=== PATIENT | male | born 1945 | race Caucasian/White ===

== ENCOUNTER 2016-07-23 23:26 | Inpatient (IN) | payer MEDICARE, BC ==
[~2016-07-23] VITALS: Ht 167.6 cm; Wt 76.6 kg
[~2016-07-23 23:26] MED LIST: AMLO10CA PO; ASPI1TAB69 PO; ASPI81TA11 PO; CIPR500T4 PO; COEN100T PO; COLE625 PO; EZET10 PO; LOTR10CA PO; MAGN500T4 PO; METR-1 PO; NEXI40CA PO; OMEGCAP21 PO; VITA400C28 PO; VITA400C59 CHEW; WELC625T2 PO; ZETI10TA5 PO
[2016-07-23 23:34] VITALS: BP 123/84; PULSE 114; RESP 20; TEMP 98.5
[2016-07-23] MEDS ORDERED: ASPIRIN 81 MG CHEW TAB CHEW ONE (23:45)
[2016-07-23] MEDS ORDERED: OMEGCAP PO (23:49)
[2016-07-23] MEDS ORDERED: MULTTAB67 PO (23:49)
[2016-07-23] MEDS ORDERED: COENPOW21 PO (23:49)
[2016-07-23] MEDS ORDERED: IBUP400T20 PO (23:51)
--- NOTE | 2016-07-23 23:53 | PD ---
HPI Chief Complaint: Chest Pain Time Seen by Provider: 23:37 Travel History International Travel<30 days: No Contact w/Intl Traveler<30days: No History of Present Illness HPI 70-year-old male complains of chest pain. Patient states that he had diarrhea 2 days ago which lasted 1 day. Patient was having generalized malaise yesterday. Patient states that he had low-grade fever yesterday of 99. Patient was sitting down and resting this evening when he started having subsequent chest pain. Patient states the pains aching pain substernally without radiation. Patient denies palpitation nausea vomiting diaphoresis. Patient denies any fever chills. Patient states that he has some mild dry cough today. Patient denies any abdominal pain. Patient denies any nausea vomiting diarrhea. Patient has history hypertension and dyslipidemia. Patient denies history of diabetes. Patient smokes cigar occasionally. Patient has family history of heart disease. Patient states that he has stress test done last year was normal. Patient take aspirin 81 mg daily. On a scale of 1-10 the pain is a 3. PFSH Past Medical History High Cholesterol: Yes Diminished Hearing: No Hepatitis: Yes (autoimmune ) Hypertension: Yes Past Surgical History Tonsillectomy: Yes Social History Alcohol Use: Yes (glass of wine nightly) Tobacco Use: No Substance Use: No Allergies-Medications (Allergen,Severity, Reaction): Coded Allergies: No Known Allergies (Unverified , 07/23/16) Reported Meds & Prescriptions Reported Meds & Active Scripts Active Reported Coenzyme Q10 1 Pow Pow 300 PO DAILY Multiple Vitamin 1 Tab 1 Tab PO DAILY [place]-3 Fish Oil/Vitamin (Fish Oil-Cholecalciferol) 1,000-1,000 Mg Cap 2 Cap PO DAILY Vitamin D (Cholecalciferol) 400 Unit Cap 400 Mg PO DAILY Nexium (Esomeprazole DR) 40 Mg Capdr 40 Mg PO DAILY Zetia (Ezetimibe) 10 Mg Tab 10 Mg PO DAILY Welchol (Colesevelam HCl) 625 Mg Tab 1,875 Mg PO BID Aspirin 81 Mg Tabdr 81 Mg PO DAILY Amlodipine-Benazepril 10-20 Mg Cap 1 Cap PO DAILY Review of Systems General / Constitutional: No: Fever Eyes: No: Visual changes HENT: No: Headaches Cardiovascular: Positive: Chest Pain or Discomfort Respiratory: No: Shortness of Breath Gastrointestinal: No: Abdominal Pain Genitourinary: No: Dysuria Musculoskeletal: No: Pain Skin: No Rash Neurologic: No: Weakness Psychiatric: No: Depression Endocrine: No: Polydipsia Hematologic/Lymphatic: No: Easy Bruising Physical Exam Narrative GENERAL: Well-nourished, well-developed patient. SKIN: Focused skin assessment warm/dry. HEAD: Normocephalic. EYES: No scleral icterus. No injection or drainage. NECK: Supple, trachea midline. No JVD or lymphadenopathy. CARDIOVASCULAR: Regular rate and rhythm without murmurs, gallops, or rubs. RESPIRATORY: Breath sounds equal bilaterally. No accessory muscle use. GASTROINTESTINAL: Abdomen soft, non-tender, nondistended. MUSCULOSKELETAL: No cyanosis, or edema. BACK: Nontender without obvious deformity. No CVA tenderness. Neurologic exam normal. Data Data Last Documented VS Vital Signs Date Time Temp Pulse Resp B/P Pulse Ox O2 Delivery O2 Flow Rate FiO2 07/23/16 23:34 98.5 114 20 123/84 Orders Electrocardiogram (07/23/16 23:44) Complete Blood Count With Diff (07/23/16 23:44) Comprehensive Metabolic Panel (07/23/16 23:44) Creatine Kinase (Cpk) (07/23/16 23:44) Troponin I (07/23/16 23:44) Prothrombin Time / Inr (Pt) (07/23/16 23:44) Act Partial Throm Time (Ptt) (07/23/16 23:44) Thyroid Stimulating Hormone (07/23/16 23:44) Chest, Single Ap (07/23/16 23:44) Iv Access Insert/Monitor (07/23/16 23:44) Ecg Monitoring (07/23/16 23:44) Oximetry (07/23/16 23:44) Aspirin Chew (Aspirin Chew) (07/23/16 23:45) MDM Medical Decision Making Medical Screen Exam Complete: Yes Emergency Medical Condition: Yes Interpretation(s) 23:52 PM. EKG shows sinus tachycardia rate 113. Nonspecific ST-T wave change. Differential Diagnosis Differential diagnosis including musculoskeletal, angina, [place], PE, pneumothorax. Narrative Course 70-year-old male with substernal chest pain. Victor Manuel Young MD Jul 23, 2016 23:53
[2016-07-23 23:59] LABS: AUTOMATED NEUTROPHIL # 6.7 TH/MM3 (1.8-7.7); BASOPHIL # 0.1 TH/MM3 (0-0.2); BASOPHIL % 0.6 % (0.0-2.0); EOSINOPHIL # 0.1 TH/MM3 (0-0.4); EOSINOPHIL % 1.1 % (0.0-4.0); HEMATOCRIT 46.3 % (39.0-51.0); HEMO FLAGS DIFF FINAL; LYMPH % 11.2 % (9.0-44.0); MEAN CELL VOLUME 86.4 FL (80.0-100.0); MEAN CORPUSCULAR HEMOGLOBIN 30.3 PG (27.0-34.0); MONO % 12.1 % (0.0-8.0); PLATELET COUNT 113 TH/MM3 (150-450); RED BLOOD COUNT 5.36 MIL/MM3 (4.50-5.90); RED CELL DISTRIBUTION WIDTH 12.5 % (11.6-17.2)
[2016-07-24] VITALS (29 sets, daily range): BP systolic 90–110; BP diastolic 65–77; PULSE 82–104; RESP 16–18; TEMP 97.3–98; O2SAT 91–96
[2016-07-24 00:06] LABS: CHLORIDE 100 MEQ/L (98-107); POTASSIUM 3.1 MEQ/L (3.5-5.1); SODIUM (NA) 139 MEQ/L (136-145)
[2016-07-24 00:10] LABS: ANION GAP 14 MEQ/L (5-15); BICARBONATE 24.6 MEQ/L (21.0-32.0)
[2016-07-24 00:11] LABS: APTT (PATIENT) 26.9 SEC (24.3-30.1); BLOOD UREA NITROGEN 22 MG/DL (7-18); PROTHROMBIN TIME - PATIENT 11.1 SEC (9.8-11.6)
[2016-07-24 00:14] LABS: ALT (GPT) 35 U/L (12-78); AST (GOT) 26 U/L (15-37); GLOMERULAR FILTRATION RATE 60 ML/MIN (>89)
[2016-07-24 00:15] LABS: TOTAL BILIRUBIN ADULT 0.8 MG/DL (0.2-1.0)
--- NOTE | 2016-07-24 00:16 | RADHPO ---
EXAM DATE/TIME: 07/24/2016 00:01 [facility] COMPARISON: No previous studies available for comparison. INDICATIONS : Chest pain. MEDICAL HISTORY : None. SURGICAL HISTORY : None. ENCOUNTER: Initial ACUITY: 1 day PAIN SCORE: 3/10 LOCATION: Bilateral chest FINDINGS: A single view of the chest demonstrates the lungs to be symmetrically aerated without evidence of mas s, infiltrate or effusion. The cardiomediastinal contours are unremarkable. Narrowing of the bilateral subacromial spaces noted, right worse on left. Chronic bilateral rotator c uff tears are suspected. CONCLUSION: No evidence of acute cardiopulmonary disease. Yehuda Herring MD on July 24, 2016 at 0:14 Board Certified Radiologist. This report was verified electronically.
[2016-07-24 00:17] LABS: ALKALINE PHOSPHATASE 68 U/L (45-117)
[2016-07-24] MEDS ORDERED: SODIUM CHLOR 0.9% 1000 ML INJ 1,000 ML IV ONE (00:30)
[2016-07-24 00:35] LABS: CREATINE KINASE 87 U/L (39-308)
[2016-07-24] MEDS ORDERED: HEPARIN SODIUM - IV 10,000 UNITS/10 ML VIAL IV ONE (00:45)
[2016-07-24] MEDS ORDERED: IOHEXOL 350 MG/ML 10 ML VIAL (for RAD DIAG) IV ONE (00:51)
--- NOTE | 2016-07-24 00:56 | PD ---
Physical Exam Time Seen by Provider: 00:[address] Young with this patient with me to check the results of the CT scan/ laboratory and likely admit. Data Data Last Documented VS Vital Signs Date Time Temp Pulse Resp B/P Pulse Ox O2 Delivery O2 Flow Rate FiO2 07/24/16 00:45 102 18 107/73 95 Room Air 07/23/16 23:34 98.5 Orders Electrocardiogram (07/23/16 23:44) Complete Blood Count With Diff (07/23/16 23:44) Comprehensive Metabolic Panel (07/23/16 23:44) Creatine Kinase (Cpk) (07/23/16 23:44) Troponin I (07/23/16 23:44) Prothrombin Time / Inr (Pt) (07/23/16 23:44) Act Partial Throm Time (Ptt) (07/23/16 23:44) Thyroid Stimulating Hormone (07/23/16 23:44) Chest, Single Ap (07/23/16 23:44) Iv Access Insert/Monitor (07/23/16 23:44) Ecg Monitoring (07/23/16 23:44) Oximetry (07/23/16 23:44) Aspirin Chew (Aspirin Chew) (07/23/16 23:45) D-Dimer (07/23/16 23:50) Ct Pulmonary Angiogram (07/23/16 23:50) Sodium Chlor 0.9% 1000 Ml Inj (Ns 1000 M (07/24/16 00:30) Heparin Infusion CHASE.Q1H (07/24/16 00:41) Heparin Inj (Heparin Inj) (07/24/16 00:45) Heparin-D5w Inj (Heparin-D5w Inj) (07/24/16 00:45) Act Partial Throm Time (Ptt) (07/24/16 00:41) Cbc No Diff, Includes Plts (07/24/16 00:41) Cbc No Diff, Includes Plts (07/27/16 06:00) Act Partial Throm Time (Ptt) (07/24/16 07:41) Occult Blood (Hemoccult) Stool (07/24/16 00:41) Iohexol 350 Inj (Omnipaque 350 Inj) (07/24/16 00:51) Potassium Chloride (Kcl) (07/24/16 01:00) Admit Order (Ed Use Only) (07/24/16 01:19) Labs Laboratory Tests Test 07/23/16 23:45 White Blood Count 9.0 TH/MM3 Red Blood Count 5.36 MIL/MM3 Hemoglobin 16.2 GM/DL Hematocrit 46.3 % Mean Corpuscular Volume 86.4 FL Mean Corpuscular Hemoglobin 30.3 PG Mean Corpuscular Hemoglobin 35.0 % Concent Red Cell Distribution Width 12.5 % Platelet Count 113 TH/MM3 Mean Platelet Volume 8.8 FL Neutrophils (%) (Auto) 75.0 % Lymphocytes (%) (Auto) 11.2 % Monocytes (%) (Auto) 12.1 % Eosinophils (%) (Auto) 1.1 % Basophils (%) (Auto) 0.6 % Neutrophils # (Auto) 6.7 TH/MM3 Lymphocytes # (Auto) 1.0 TH/MM3 Monocytes # (Auto) 1.1 TH/MM3 Eosinophils # (Auto) 0.1 TH/MM3 Basophils # (Auto) 0.1 TH/MM3 CBC Comment DIFF FINAL Differential Comment Prothrombin Time 11.1 SEC Prothromb Time International 1.0 RATIO Ratio Activated Partial 26.9 SEC Thromboplast Time D-Dimer Quantitative (PE/DVT) 0.62 MG/L FEU Sodium Level 139 MEQ/L Potassium Level 3.1 MEQ/L Chloride Level 100 MEQ/L Carbon Dioxide Level 24.6 MEQ/L Anion Gap 14 MEQ/L Blood Urea Nitrogen 22 MG/DL Creatinine 1.20 MG/DL Estimat Glomerular Filtration 60 ML/MIN Rate Random Glucose 135 MG/DL Calcium Level 8.9 MG/DL Total Bilirubin 0.8 MG/DL Aspartate Amino Transf 26 U/L (AST/SGOT) Alanine Aminotransferase 35 U/L (ALT/SGPT) Alkaline Phosphatase 68 U/L Total Creatine Kinase 87 U/L Troponin I 0.86 NG/ML Total Protein 7.9 GM/DL Albumin 3.9 GM/DL Thyroid Stimulating Hormone 1.740 uIU/ML 3rd Gen [facility] Medical Record Reviewed: Yes Supervised Visit with YANIQUE: Yes Interpretation(s) The EKG shows sinus tachycardia with a rate of [address] junctional depression which is nonspecific in no other acute change. The complete metabolic profile shows a BUN of 22, GFR 60, glucose 135 and potassium 3.1 but is otherwise normal. The CK is normal but the troponin I is 0.86. The APTT T, pro time and INR are normal. The chest x-ray shows no acute cardiopulmonary disease. The TSH is normal. The d-dimer is 0.62. The CT pulmonary angiogram shows no pulmonary embolus. No acute abnormality is noted. He does have coronary artery calcification and left ventricular hypertrophy and calcification of the mitral valve annulus. There is a small hiatal hernia and there are several tiny nonobstructing stones visualized in the upper kidneys. Differential Diagnosis Acute coronary syndrome, non-STEMI myocardial infarction, pulmonary embolus, electrolyte disorder, renal insufficiency, Narrative Course The patient appears to have a non-STEMI myocardial infarction. He is comfortable and there is no evidence for pulmonary embolus. EKG is essentially normal except for some slight ST depression on leads V2 and V3 and tachycardia of 113. I discussed the patient with Dr. Esteban Cheatham and the patient will be admitted to the [facility] service with consult to him. The patient will be transferred to [facility]. Physician Communication Physician Communication I discussed the patient with Dr. Esteban Cheatham and CONOR Jackson. Miss Jackson instructed me to admit the patient to Dr. Monroy. Diagnosis Primary Impression: Non-STEMI (non-ST elevated myocardial infarction) Admitting Information Admitting Physician Requests: Admit Ben Chan MD Jul 24, 2016 00:56
[2016-07-24] MEDS ORDERED: POTASSIUM CHLORIDE 20 MEQ CONTROLLED RELEASE TAB PO ONE (01:00)
--- NOTE | 2016-07-24 01:01 | RADHPO ---
EXAM DATE/TIME: 07/24/2016 00:29 [facility] COMPARISON: No previous studies available for comparison. INDICATIONS : Diffuse chest pain. IV CONTRAST: 80 cc Omnipaque 350 (iohexol) IV RADIATION DOSE: 14.83 CTDIvol (mGy) MEDICAL HISTORY : Hypertension. Gastroesophageal reflux disease. SURGICAL HISTORY : None. ENCOUNTER: Initial ACUITY: 1 day PAIN SCALE: 6/10 LOCATION: chest TECHNIQUE: Volumetric scanning of the chest was performed using a pulmonary embolism protocol MIP images were re constructed. Using automated exposure control and adjustment of the mA and/or kV according to patien t size, radiation dose was kept as low as reasonably achievable to obtain optimal diagnostic quality images. FINDINGS: There is no pulmonary embolus. Mild left ventricular hypertrophy. There is calcification of the mitral valve annulus. Right and left-sided coronary artery calcification noted. There is no lymphadenopathy. No infiltrate, effusion or pneumothorax. Small hiatal hernia noted. Several small stones are seen of the visualized upper kidneys without evidence of obstruction. There is a 14 mm cyst on the left. CONCLUSION: 1. No pulmonary embolus or other acute abnormality demonstrated. 2. Coronary artery calcification. Left ventricular hypertrophy and calcification of the mitral valve annulus noted. 3. Small hiatal hernia. 4. Several tiny nonobstructing stones of the visualized upper kidneys. Yehuda Herring MD on July 24, 2016 at 0:55 Board Certified Radiologist. This report was verified electronically.
[2016-07-24] MEDS: HEPARIN-D5W INJ 250 ML IV SCH (01:02)
[2016-07-24] MEDS ORDERED: SODIUM CHLORIDE 0.9% FLUSH 10 ML FLUSH IV FLUSH PRN (01:30)
[2016-07-24] MEDS ORDERED: ACETAMINOPHEN 325 MG TAB PO PRN (01:30)
[2016-07-24] MEDS ORDERED: ONDANSETRON HCL 4 MG/2 ML VIAL IVP PRN (01:30)
[2016-07-24] MEDS ORDERED: NALOXONE HCL 0.4 MG/ML AMP IV PRN (01:30)
[2016-07-24] MEDS ORDERED: MORPHINE SULFATE 4 MG/ML INJ IV PUSH PRN (01:30)
[2016-07-24] MEDS ORDERED: PILL SPLITTER OTHER PRN (01:45)
[2016-07-24] MEDS: SODIUM CHLOR 0.9% 1000 ML INJ 1,000 ML IV SCH ×2 (01:54→20:34)
[2016-07-24] MEDS: NITROGLYCERIN 2% OINT 1 GM PACKET TOPICAL SCH ×3 (06:00→17:54)
[2016-07-24] MEDS ORDERED: VENTAER INH (06:44)
[2016-07-24] MEDS ORDERED: RESP: ALBUTEROL 2.5 MG/IPRATROPIUM 0.5 MG NEB (PRN) NEB (06:45)
[2016-07-24 06:54] LABS: APTT (PATIENT) 48.8 SEC (24.3-30.1)
--- NOTE | 2016-07-24 08:48 | HHI.HP ---
[facility] Tico Silva MD Admission Diagnosis non-STEMI myocardial infarction Diagnoses: (1) Non-STEMI (non-ST elevated myocardial infarction) (2) Hypertension (3) Hyperlipidemia (4) IFG (impaired fasting glucose) (5) Hypokalemia Chief Complaint: Chest pain Travel History International Travel<30 Days: No Contact w/Intl Traveler <30 Da: No Traveled to Known Affected Are: No History of Present Illness 70 year-old male with a history of hyperlipidemia, hypertension presented to the ED for evaluation of worsening symptoms of chest discomfort since 6 PM yesterday rated 3/10 in intensity without any radiation, diaphoresis however associated with some shortness of breath. Initially, patient thought of similar complaint of bronchospasm for which he tried an inhaler without any improvement and decided to check himself to the ED. prior to this, patient had diarrhea episodes on night until Monday which resolved. He has no GI bleed. He had a previous stress test several years ago and the result was negative. Review of Systems Other 12 systems reviewed and are negative except for the one mentioned in history of present illness Past Family Social History Past Medical History Hyperlipidemia Hypertension GERD Past Surgical History Previous right knee surgery Reported Medications Coenzyme Q10 1 Pow Pow 300 PO DAILY Multiple Vitamin 1 Tab 1 Tab PO DAILY [place]-3 Fish Oil/Vitamin (Fish Oil-Cholecalciferol) 1,000-1,000 Mg Cap 2 Cap PO DAILY Vitamin D (Cholecalciferol) 400 Unit Cap 400 Mg PO DAILY Nexium (Esomeprazole DR) 40 Mg Capdr 40 Mg PO DAILY Zetia (Ezetimibe) 10 Mg Tab 10 Mg PO DAILY Welchol (Colesevelam HCl) 625 Mg Tab 1,875 Mg PO BID Aspirin 81 Mg Tabdr 81 Mg PO DAILY Amlodipine-Benazepril 10-20 Mg Cap 1 Cap PO DAILY Allergies: Coded Allergies: No Known Allergies (Unverified , 07/23/16) Family History Father from heart disease, he had multiples CABG Mother alive, heart disease, previous breast cancer 2 Social History Social alcohol, denies tobacco or illicit drug intake Physical Exam Vital Signs Vital Signs Date Time Temp Pulse Resp B/P Pulse Ox O2 Delivery O2 Flow Rate FiO2 07/24/16 08:00 97.8 93 18 93/68 95 07/24/16 08:00 93 07/24/16 07:02 95 21 07/24/16 07:02 87 16 93/69 94 Room Air 07/24/16 07:01 16 94 Room Air 07/24/16 06:15 97.9 88 18 100/74 95 Room Air 07/24/16 04:50 86 17 90/72 94 Room Air 07/24/16 03:50 88 18 96/74 96 Room Air 07/24/16 03:20 90 17 93/69 94 Room Air 07/24/16 02:50 88 18 94/71 95 Room Air 07/24/16 02:14 98 16 95/67 95 Room Air 07/24/16 02:00 96 21 07/24/16 01:50 Room Air 07/24/16 01:20 101 17 106/77 95 Room Air 07/24/16 00:45 102 18 107/73 95 Room Air 07/24/16 00:45 Room Air 07/23/16 23:34 98.5 114 20 123/84 Physical Exam GENERAL: This is a well-nourished, well-developed patient who looks younger than his stated age, in no apparent distress. SKIN: No rashes, ecchymoses or lesions. Cool and dry. HEAD: Atraumatic. Normocephalic. No temporal or scalp tenderness. EYES: Pupils equal round and reactive. Extraocular motions intact. No scleral icterus. No injection or drainage. ENT: Nose without bleeding, purulent drainage or septal hematoma. Throat without erythema, tonsillar hypertrophy or exudate. Uvula midline. Airway patent. NECK: Trachea midline. No JVD or lymphadenopathy. Supple, nontender, no meningeal signs. CARDIOVASCULAR: Regular rate and rhythm without murmurs, gallops, or rubs. RESPIRATORY: Clear to auscultation. Breath sounds equal bilaterally. No wheezes , rales, or rhonchi. GASTROINTESTINAL: Abdomen soft, non-tender, nondistended. No hepato-splenomegaly , or palpable masses. No guarding. MUSCULOSKELETAL: Extremities without clubbing, cyanosis, or edema. No joint tenderness, effusion, or edema noted. No calf tenderness. Negative Homans sign bilaterally. NEUROLOGICAL: Awake and alert. Cranial nerves II through XII intact. Motor and sensory grossly within normal limits. Five out of 5 muscle strength in all muscle groups. Normal speech. Laboratory Laboratory Tests Test 07/23/16 07/24/16 23:45 06:10 White Blood Count 9.0 Red Blood Count 5.36 Hemoglobin 16.2 Hematocrit 46.3 Mean Corpuscular Volume 86.4 Mean Corpuscular Hemoglobin 30.3 Mean Corpuscular Hemoglobin 35.0 Concent Red Cell Distribution Width 12.5 Platelet Count 113 Mean Platelet Volume 8.8 Neutrophils (%) (Auto) 75.0 Lymphocytes (%) (Auto) 11.2 Monocytes (%) (Auto) 12.1 Eosinophils (%) (Auto) 1.1 Basophils (%) (Auto) 0.6 Neutrophils # (Auto) 6.7 Lymphocytes # (Auto) 1.0 Monocytes # (Auto) 1.1 Eosinophils # (Auto) 0.1 Basophils # (Auto) 0.1 CBC Comment DIFF FINAL Differential Comment Prothrombin Time 11.1 Prothromb Time International 1.0 Ratio Activated Partial 26.9 48.8 Thromboplast Time D-Dimer Quantitative (PE/DVT) 0.62 Sodium Level 139 Potassium Level 3.1 Chloride Level 100 Carbon Dioxide Level 24.6 Anion Gap 14 Blood Urea Nitrogen 22 Creatinine 1.20 Estimat Glomerular Filtration 60 Rate Random Glucose 135 Calcium Level 8.9 Total Bilirubin 0.8 Aspartate Amino Transf 26 (AST/SGOT) Alanine Aminotransferase 35 (ALT/SGPT) Alkaline Phosphatase 68 Total Creatine Kinase 87 Troponin I 0.86 0.89 Total Protein 7.9 Albumin 3.9 Thyroid Stimulating Hormone 1.740 3rd Gen Result Diagram: 07/23/16234407/23/1623[address] Angiography 07/23/162349 Signed Impressions: Service Date/Time: Sunday, July 24, 2016 00:29 - CONCLUSION: 1. No pulmonary embolus or other acute abnormality demonstrated. 2. Coronary artery calcification. Left ventricular hypertrophy and calcification of the mitral valve annulus noted. 3. Small hiatal hernia. 4. Several tiny nonobstructing stones of the visualized upper kidneys. Yehuda Herring MD Chest X-Ray 07/23/162343 Signed Impressions: Service Date/Time: Sunday, July 24, 2016 00:01 - CONCLUSION: No evidence of acute cardiopulmonary disease. Yehuda Herring MD Assessment and Plan Problem List: (1) Non-STEMI (non-ST elevated myocardial infarction) ICD Code: I21.4 Status: Acute (2) Hypertension ICD Code: I10 Status: Acute (3) Hyperlipidemia ICD Code: E78.5 Status: Acute (4) IFG (impaired fasting glucose) ICD Code: R73.01 Status: Acute (5) Hypokalemia ICD Code: E87.6 Status: Acute Assessment and Plan 70-year-old man with Non-ST elevation NM CTA noted and reviewed by me with No pulmonary embolus or other acute abnormality demonstrated Chest x-ray noted and reviewed by me without any cardio pulmonary disease Initial Elevated Cardiac enzyme, continue ACS ruled out per protocol with serial cardiac enzyme and EKG Cardiology consultation pending for eval for possible left heart catheterization +/-PCI Check 2-D echo Treatment with heparin drip, beta pau , aspirin, statin, Nitropaste Hypertension Secondary to low BP, will hold beta pau Hyperlipidemia Resume statin and check lipid profile Impaired fasting glucose Check hemoglobin A1c and treat accordingly Hypokalemia Replace electrolyte and monitor DVT prophylaxis: Heparin Code Status Full code Discussed Condition With Patient Physician Certification 2 Midnight Certification Type: Admission for Inpatient Services Order for Inpatient Services The services are ordered in accordance with Medicare regulations or non- Medicare payer requirements, as applicable. In the case of services not specified as inpatient-only, they are appropriately provided as inpatient services in accordance with the 2-midnight benchmark. Estimated LOS (days): 2 days is the estimated time the patient will need to remain in the hospital, assuming treatment plan goals are met and no additional complications. Post-Hospital Plan: Not yet determined Rambo Turner MD Jul 24, 2016 08:48
[2016-07-24] MEDS ORDERED: LISINOPRIL 20 MG TAB PO SCH ×2 (09:00→20:00)
[2016-07-24] MEDS ORDERED: amLODIPine BESYLATE 5 MG TAB PO SCH ×2 (09:00→20:00)
[2016-07-24] MEDS ORDERED: NON-FORMULARY DRUG (Amlodipine-Benazepril 1 CAP) PO SCH (09:00)
[2016-07-24] MEDS ORDERED: METOPROLOL TARTRATE 25 MG TAB PO SCH (09:00)
[2016-07-24] MEDS: EZETIMIBE 10 MG TAB PO SCH (09:28)
[2016-07-24] MEDS: ASPIRIN 325 MG TAB PO SCH (09:29)
[2016-07-24] MEDS: PANTOPRAZOLE SOD 40 MG DELAYED RELEASE TAB PO SCH (09:29)
[2016-07-24] MEDS: SODIUM CHLORIDE 0.9% FLUSH 10 ML FLUSH IV FLUSH SCH ×2 (09:30→20:32)
--- NOTE | 2016-07-24 10:39 | MB ---
cc: EDITH ESTEBAN DATE OF CONSULTATION: 07/24/2016 1944 REASON FOR CONSULTATION Chest pain. HISTORY OF PRESENT ILLNESS 70-year-old male with past medical history significant for hyperlipidemia, hypertension, occasional smoking cigars, that presented to the emergency department with complaints of chest discomfort that started yesterday at 06:00 p.m., about 3 out of 10 in intensity without radiation, associated with mild shortness of breath. Initial EKG showed some EKG ST depressions and first and second set of cardiac troponins elevated in the range of 0.86-0.89. Thus, the patient has been consulted to cardiology for further management and evaluation. REVIEW OF SYSTEMS Review of systems negative except for what is mentioned in HPI. PAST MEDICAL HISTORY 1. Hyperlipidemia. 2. Hypertension. 3. Gastroesophageal reflux disease. PAST SURGICAL HISTORY Right knee surgery. MEDICATION Home medications: 1. Coenzyme Q10. 2. Multivitamin. 3. [place]-3 fish oil. 4. Vitamin D. 5. Nexium. 6. Zetia. 7. Aspirin 81. 8. Amlodipine. 9. Benazepril 10/20 mg p.o. daily. ALLERGIES NO KNOWN DRUG ALLERGIES. FAMILY HISTORY Father from heart disease. Mother alive with heart disease. SOCIAL HISTORY Denies alcohol use or illicit drug use. He smokes tobacco Occasionally. VITAL SIGNS: Temperature 97.8, respiratory rate 18, pulse 87, blood pressure 93/ 68, O2 sat 95% on room air. GENERAL: Awake, alert, oriented x3, in no acute distress. NECK: No JVD, no carotid bruits. HEART: Regular rate and rhythm. No murmurs, rubs or gallops. LUNGS: Clear to auscultation bilaterally. No wheezes or rhonchi or rales. ABDOMEN: Soft, nontender, nondistended with positive bowel sounds. EXTREMETIES: Pulses throughout, no edema DATA CBC hemoglobin 16, hematocrit 46, platelet count 113, INR 1. Chemistries sodium 139, potassium 3.1, BUN 22, creatinine 1.2, troponin 0.86 and 0.89. Chest x-ray- Noo evidence of acute cardiopulmonary process. Chest CTA- No pulmonary emboli. ASSESSMENT/PLAN 70-year-old male with cardiac risk factors that include age, hypertension, hyperlipidemia, that presented to the emergency department complaining of chest pain he has rule in for CT by cardiac markers. The patient remains afebrile and hemodynamically stable, chest pain free. He has been started on aspirin, heparin drip, beta blockers and statins. Also, DOMINGO inhibitors. Given the patient's complaints as well as positive cardiac markers, I think it would be reasonable to pursue left heart cath/PCI to further address coronary artery disease. Risks, benefits of left heart cath/PCI including but not limited to neurovascular trauma, bleeding, infection, acute kidney injury, stroke and major bypass surgery have been explained to the patient. The patient understands the risks and he is willing to proceed.. RECOMMENDATIONS 1. Keep n.p.o. after midnight for left heart cath/PCI in the a.m. 2. Continue aggressive medical management for coronary artery disease. Further therapy to be determined. Thank you for the opportunity to take part in the care of this patient. MD IVONNE Skinner/[place] /9:24 AM /10:23 AM REGGIE
[2016-07-24 10:46] LABS: HDL CHOLESTEROL 35.8 MG/DL (40.0-60.0)
[2016-07-24] MEDS: COLESEVELAM HCL 625 MG TAB PO SCH ×2 (11:04→20:32)
[2016-07-24 15:24] LABS: APTT (PATIENT) 36.4 SEC (24.3-30.1)
[2016-07-24 23:52] LABS: APTT (PATIENT) 38.7 SEC (24.3-30.1)
[2016-07-25] VITALS (19 sets, daily range): BP systolic 101–116; BP diastolic 68–82; PULSE 82–104; RESP 18; TEMP 98–98.6; O2SAT 91–95
[2016-07-25] MEDS: HEPARIN-D5W INJ 250 ML IV SCH (03:56)
[2016-07-25] MEDS: NITROGLYCERIN 2% OINT 1 GM PACKET TOPICAL SCH ×3 (05:49→12:00)
[2016-07-25 06:44] LABS: APTT (PATIENT) 49.2 SEC (24.3-30.1)
[2016-07-25 07:01] LABS: BICARBONATE 22.9 MEQ/L (21.0-32.0); POTASSIUM 3.6 MEQ/L (3.5-5.1)
[2016-07-25 07:07] LABS: AUTOMATED NEUTROPHIL # 4.6 TH/MM3 (1.8-7.7); BASOPHIL % 0.4 % (0.0-2.0); EOSINOPHIL # 0.2 TH/MM3 (0-0.4); EOSINOPHIL % 2.7 % (0.0-4.0); HEMATOCRIT 40.4 % (39.0-51.0); HEMO FLAGS DIFF FINAL; LYMPH % 22.5 % (9.0-44.0); LYMPHOCYTE # 1.7 TH/MM3 (1.0-4.8); MEAN CORPUSCULAR HEMOGLOBIN 29.6 PG (27.0-34.0); MONO % 11.8 % (0.0-8.0); NEUT % 62.6 % (16.0-70.0); PLATELET COUNT 103 TH/MM3 (150-450); RED BLOOD COUNT 4.65 MIL/MM3 (4.50-5.90); RED CELL DISTRIBUTION WIDTH 13.9 % (11.6-17.2); WHITE BLOOD COUNT 7.4 TH/MM3 (4.0-11.0)
[2016-07-25] MEDS ORDERED: HEPARIN-NS/PF INJ 500 ML ONE (08:17)
[2016-07-25] MEDS ORDERED: MIDAZOLAM HCL 5 MG/5 ML VIAL ONE (08:21)
[2016-07-25] MEDS ORDERED: VERAPAMIL HCL 5 MG/2 ML VIAL ONE (08:28)
[2016-07-25] MEDS ORDERED: HEPARIN SODIUM - IV 10,000 UNITS/10 ML VIAL ONE (08:28)
[2016-07-25] MEDS: SODIUM CHLORIDE 0.9% FLUSH 10 ML FLUSH IV FLUSH SCH (09:00)
[2016-07-25] MEDS ORDERED: PRASUGREL 10 MG TAB ONE (09:38)
[2016-07-25] MEDS ORDERED: MISC INFORMATION XX ONE (09:45)
[2016-07-25] MEDS ORDERED: ASPIRIN 81 MG CHEW TAB PO SCH (09:45)
--- NOTE | 2016-07-25 09:51 | CATHPROC ---
Qubit HIS Report Study Information Study Number Admission Scheduled Start Study Start 0829-17 07/24/2016 07/25/2016 Jul 25 2016 7:57AM Study Type Left Heart Cath Referring Institution Admit Source Facility Department 1 Emergency department [facility] - [facility] Physician and Clinical Staff Initial MD Akers, Esteban Sales Enablement Lead Antwon Griffith,MORELIA Recorder Dominguez, Brad,RT(R) Scrub Karen Fernandez,FERNANDO TECH2 Procedures Performed Procedure Location (Site) Vessel Name Coronary Angiograms LCA Left Coronary Coronary Angiograms RCA Right Coronary Drug Eluting Inflatio RCA Ost Right Coronary L Heart Cath LV Gram-hand inj. LV LV Ventricle PTCA RCA Ost Right Coronary Wire insertion Fem Art (right) Femoral Art Equipment Time Motorcycle Maker Description Size Mfg Part Number Used/Scraped COPILOT VALVE, BLEEDBACK 08:53 [employer] [id number] Used CONTROL WIRE, BALANCE MIDDLEWEIGHT 08:49 [employer] 190CM [id number] Used 190CM WIRE, BALANCE MIDDLEWEIGHT 09:10 [employer] 190CM [id number] Used 190CM WIRE, BALANCE MIDDLEWEIGHT 09:21 [employer] 190CM [id number] Used 190CM TRANSDUCER, TRUWAVE 08:30 MCKOY DING * [id number] Used W/STOCKCOCK STENT, 3.5 12MM PROMUS 09:06 [employer] 3.5 12MM [id number] Used PREMIER WIRE, HYDROSTEER 150CM 09:23 DAIG/[employer] 150CM [id number] Used ANGLED GLIDE MEDICAL CONCEPT DRAPE, RADIAL FEMORAL FULL 08:30 * [id number] Used DEVELOPMENT BODY 08:30 [employer] INDUSTRIES PACK, CCL CUSTOM * [id number] Used 08:30 ZAPR SUPPORT, ARTERIAL ADULT [id number] Used 09:01 MED[employer] BALLOON, 3.0 X 12MM EUPHORA 12MM [id number] Used BALLOON, 4.0 X 12MM NC 09:11 [employer] 12MM [id number] Used EUPHORA 09:02 [employer] MEDICAL 30 SHADY INDEFLATOR [id number] Used 08:30 [employer] MEDICAL WIRE, 3MMJ .035 180CM 180CM [id number] Used 08:30 NAMIC MANIFOLD, 4 PORT * [id number] Used 08:30 NYCOMED OMNIPAQUE, 350 MG, 100ML 100ML [id number] Used 08:30 [employer]ILE MEDICAL BLANKET,WARM AIR CCL * [id number] Used BAND, RADIAL COMPRESSION TR 08:30 [employer] 29CM [id number] Used LARGE SHEATH, FR6 TRANSRADIAL 08:30 [employer] FR 6 RM*[id number] Used SLENDER 10CM Equipment Model, Serial, Lot Number and Expiration Data Description Model Number Serial Number Lot Number Expiration Date BALLOON, 4.0 X 12MM NC [id number] 10-18-2017 EUPHORA STENT, 3.5 12MM PROMUS [id number] 11-22-2016 PREMIER History: Allergies Allergy Reaction No Known Allergies History: Risk Factors Family History of Hypertension Dyslipidemia Previous OK Previous Heart Failure Premature CAD Yes Yes Yes No No Prior Valve Prior PCI Prior CABG Surgery No No No Cerebrovascular Peripheral Artery Chronic Lung On Dialysis Diabetes Disease Disease Disease No No No No No History: Other Current Smoker No Labs Hgb (g/dl) Hct (%) RBC (MIL/MM3) WBC (l/cumm) Platelets (thousands) 12.00-18.00 37.00-55.00 4.80-6.20 4.80-10.80 140.00-450.00 13.7 40.4 4.6 7.4 103 Glucose (mg/dl) BUN (mg/dl) Creatinine (mg/dl) BUN:Creatinine (1:x) 60.00-110.00 8.00-20.00 0.10-9.00 10.00-20.00 101 16 1.1 14.5 Na (meq/l) K (meq/l) Cl (meq/l) CO2 (mmol/L) Ca (mg/dl) 138.00-146.00 3.80-5.10 101.00-111.00 23.00-30.00 9.00-10.50 140 3.6 108 22.9 8.3 PTT (sec) 25.10-32.70 49.2 Troponin I (ng/ml) CPK-MB (ng/ML) 0.40-2.30 0.00-7.00 0.55 Not Drawn Medication Medication Total Dose (Bolus/Oral) Medication Total Dosage/Unit 1% XYLOCAINE 5 mL EFFIENT 60 mg FENTANYL 100 mcg HEPARIN 7600 units NTG (IC) 100 mcg RADIAL COCKTAIL 5 mL (Bolus) VERSED 4 mg Medications (Bolus/Oral) Medication Time Given Dosage/Unit Administered By Reason VERSED 07/25/2016 8:36:30 AM 2 mg Antwon Griffith 2 mg VERSED given in lab by Antwon Griffith RN in Right Forearm via Peripheral IV. Ordered by Esteban Cabrera. 1% XYLOCAINE 07/25/2016 8:37:19 AM 5 mL Esteban Akers 5 mL 1% XYLOCAINE given in lab by Esteban Akers in Right Radial via Subcutaneous. Ordered by Esteban Youngblood. FENTANYL 07/25/2016 8:37:45 AM 50 mcg Antwon Griffith 50 mcg FENTANYL given in lab by Antwon Griffith RN in Right Forearm via Peripheral IV. Ordered by Esteban Lees. RADIAL COCKTAIL 07/25/2016 8:39:01 AM 5 mL (Bolus) Esteban Akers 5 mL (Bolus) RADIAL COCKTAIL given in lab by Esteban Akers in Right Radial via Radial. Using NaCl .9. Ordered by Esteban Akers. 2500 units heparin, 200mcg nitro, 2.5 mg verapamil HEPARIN 07/25/2016 8:53:51 AM 7600 units Antwon Griffith 7600 units HEPARIN given in lab by Antwon Griffith RN in Right Forearm via Peripheral IV. Ordered by Esteban Akers. NTG (IC) 07/25/2016 8:55:51 AM 100 mcg Esteban Akers 100 mcg NTG (IC) given in lab by Esteban Akers via Intra-coronary. Ordered by Esteban Akers. VERSED 07/25/2016 8:57:10 AM 1 mg Antwon Griffith 1 mg VERSED given in lab by Antwon Griffith RN in Right Forearm via Peripheral IV. Ordered by Esteban Cabrera. FENTANYL 07/25/2016 8:58:30 AM 25 mcg Antwon Griffith 25 mcg FENTANYL given in lab by Antwon Griffith RN in Right Forearm via Peripheral IV. Ordered by Esteban Lees. VERSED 07/25/2016 9:25:53 AM 1 mg Antwon Griffith 1 mg VERSED given in lab by Antwon Griffith, MORELIA in Right Forearm via Peripheral IV. Ordered by Esteban Cabrera. FENTANYL 07/25/2016 9:26:06 AM 25 mcg Antwon Griffith 25 mcg FENTANYL given in lab by Antwon Griffith, MORELIA in Right Forearm via Peripheral IV. Ordered by Esteban Lees. EFFIENT 07/25/2016 9:47:07 AM 60 mg Antwon Griffith 60 mg EFFIENT given in lab by Antwon Griffith, MORELIA via Oral. Ordered by Esteban Akers. Medication (Drip) Medication Time Given Dosage/Unit Concentration/Unit Diluent (ml) Solution IV Solutions 07/25/2016 8:19:54 AM 0 mL (IV) 500 NaCl .9 Patient arrived on IV Solutions given by Esteban Akers in Right Forearm via Peripheral IV. Pump/D rip Flow = 20 ml/hr using NaCl .9. Ordered by Esteban Akers. Reason: As per physicians verbal order. Initial Case Assessment Cardiovascular HR Rhythm Chest Pain 90 sr 0 Edema Present Skin color Skin None Normal Warm Dry Circulatory - Right Pulses Dorsalis Pedis Femoral Radial 2 2 2 Scale (0,1,2,3,4,d) Circulatory - Left Pulses Dorsalis Pedis Femoral Radial 2 2 Scale (0,1,2,3,4,d) Neurological State Oriented to time-place- Alert Moves all extremities person Respiration - General Respiration Rate SpO2 (%) (B/min) 18 96 Final Case Assessment Cardiovascular HR Rhythm NIBP Chest Pain 85 sr 111/75 0 Edema Present Skin color Skin None Normal Warm Dry Circulatory - Right Pulses Dorsalis Pedis Femoral 2 2 Scale (0,1,2,3,4,d) Circulatory - Left Pulses Dorsalis Pedis Femoral 2 2 Scale (0,1,2,3,4,d) Neurological State Oriented to time-place- Alert Moves all extremities person Respiration - General Respiration Rate SpO2 (%) O2 (lpm) (B/min) 18 96 2 Chronological Log Time Study Chronological Log 8:12:02 Patient arrived via Bed. Positive Allens test performed by Karen Fernandez. 8:12:05 Patient Name, D.O.B, / Armband Verified By R.N. 8:12:06 Consent signed by the physician and the patient and verified by the [facility] staff. 8:12:08 Pre-op and post- op instructions given; patient acknowledges understanding of instructions. 8:13:13 Verbal Stimulation=2 Physical Stimulation=2 Airway=2 Respiration=2 TOTAL=8. (0=absent, 1=li mited, 2=present) 8:13:31 Presedation assessment performed by [facility] RN. 8:13:40 Patient has been NPO for More than 6Hrs. 8:17:21 Skin Breakdown none present per patient. 8:17:34 Patient Warmer Placed on the Table. 8:17:36 Tatyana Prominences Protected 8:18:32 A # 20 IV was noted in the Forearm (right). Grade = 0 8:19:27 Reference ECG taken Patient arrived on IV Solutions given by Esteban Akers in Right Forearm via Peripheral IV. Pump/Drip Flow = 20 8:19:54 ml/hr using NaCl .9. Ordered by Esteban Akers. Reason: As per physicians verbal order. 8:20:32 History and physical on the chart or being dictated. Vitals capture started with the following parameters, Patient=Adult, Interval=15 min, Initial P rfsjlwr=702 mmHg, 8:20:41 Deflation Rate=5 mmHg 8:20:51 Vitals capture stopped. Vitals capture started with the following parameters, Patient=Adult, Interval=5 min, Initial Pre umyfs=407 mmHg, 8:21:05 Deflation Rate=5 mmHg Assessment: Initial Case, HR=90 BPM, Rhythm=sr, Chest Pain=0, Edema=None, Color=Normal, Skin = W arm, Dry Right Pulses: Royce Ped=2, Femoral=2, Radial=2 8:21:22 Left Pulses: Royce Ped=2, Femoral=2 Neurological: State=Alert, Ox3, GRANDA Respiration: Resp=18 B/min, SpO2=96 % 8:21:40 HR=93 bpm, FTVJ=871/82 mmhg, SpO2=96 %, Cornejo=2 8:22:54 Right Radial and groin(s) prepped with 2% chlorhexidine, and with a 3 min. waiting time. 8:26:39 HR=93 bpm, VLJC=479/83 mmhg, Cornejo=2 8:31:38 HR=90 bpm, PBBW=674/79 mmhg, SpO2=97.0 %, Cornejo=2 8:32:34 MD arrived. 8:36:30 2 mg VERSED given in lab by Antwon Griffith, RN in Right Forearm via Peripheral IV. Ordered b y Esteban Akers. 8:36:32 Pressure channel 1 zeroed. 8:36:39 HR=90 bpm, EAOC=620/78 mmhg, SpO2=95.0 %, Cornejo=2 Time Out. Correct patient, correct procedure,correct physician, ,power injector not loaded with contrast with surgical 8:36:44 team present. Time Out Concurred by MD, individual staff and MANAGER ETL in procedure. Not loaded at th is time. 8:37:07 Presedation re-assessment performed by Air Hose Coupler RN. 8:37:09 Case Start 8:37:11 Verbal Stimulation=2 Physical Stimulation=2 Airway=2 Respiration=2 TOTAL=8. (0=absent, 1=hendrickson ited, 2=present) 5 mL 1% XYLOCAINE given in lab by Esteban Akers in Right Radial via Subcutaneous. Ordered by Delphine 8:37:19 Esteban. 8:37:45 50 mcg FENTANYL given in lab by Antwon Griffith, RN in Right Forearm via Peripheral IV. Order ed by Esteban Akers. 8:38:22 Access site was Radial Artery. A SHEATH, FR6 TRANSRADIAL SLENDER 10CM FR 6 was advanced into the Radial (right) using the Ella lyles 8:38:28 technique. 5 mL (Bolus) RADIAL COCKTAIL given in lab by Esteban Akers in Right Radial via Radial. Using NaCl .9. Ordered by 8:39:01 Esteban Akers. 2500 units heparin, 200mcg nitro, 2.5 mg verapamil A JR 4.0 INFINITI CATHETER FR 5 was advanced over a wire. OMNIPAQUE, 350 MG, 100ML 100ML was use d for 8:40:12 injections. 8:41:40 HR=90 bpm, NIBP=99/67 mmhg, SpO2=95 %, Cornejo=2 Recorded Pressure: LV, HR=89, Condition=Condition 1 8:42:19 (Left Ventricle) LV 114/5/14 8:42:41 The LV was manually injected with 10 cc's and visualized. OMNIPAQUE, 350 MG, 100ML 100ML use d. Recorded Pressure: LV, Ao, HR=90, Condition=Condition 1 8:42:54 (Left Ventricle) LV 111/7/9, (Aorta) Ao 91/67/77 8:43:09 The RCA was injected and visualized at various angles. OMNIPAQUE, 350 MG, 100ML 100ML used. Recorded Pressure: Ao, HR=88, Condition=Condition 1 8:43:40 (Aorta) Ao 91/61/76 8:43:56 A WIRE, 3MMJ .035 180CM 180CM was inserted via Fem Art (right). After removing the current catheter a JL 3.5 INFINITI CATHETER FR 5 was advanced over a WIRE, 3M MJ .035 180CM 8:45:48 180CM. OMNIPAQUE, 350 MG, 100ML 100ML was used for injections. 8:45:57 The LCA was injected and visualized at various angles. OMNIPAQUE, 350 MG, 100ML 100ML used. 8:46:37 HR=88 bpm, NIBP=98/64 mmhg, SpO2=92.0 %, Cornejo=2 8:51:38 HR=91 bpm, VNAR=502/65 mmhg, SpO2=92.0 %, Cornejo=2 7600 units HEPARIN given in lab by Antwon Griffith, MORELIA in Right Forearm via Peripheral IV. Ordere d by Delphine 8:53:51 Esteban. 8:55:51 100 mcg NTG (IC) given in lab by Esteban Akers via Intra-coronary. Ordered by Esteban Akers. 8:56:39 HR=88 bpm, KBML=223/69 mmhg, SpO2=93.0 %, Cornejo=2 8:57:10 1 mg VERSED given in lab by Antwon Griffith, RN in Right Forearm via Peripheral IV. Ordered b y Esteban Akers. 8:58:30 25 mcg FENTANYL given in lab by Antwon Griffith, MORELIA in Right Forearm via Peripheral IV. Order ed by Esteban Akers. 8:58:52 A WIRE, BALANCE MIDDLEWEIGHT 190CM 190CM was inserted via Fem Art (right). A BALLOON, 3.0 X 12MM EUPHORA 12MM was inserted over WIRE, BALANCE MIDDLEWEIGHT 190CM 190CM via the 9:00:37 RCA Ost. A BALLOON, 3.0 X 12MM EUPHORA 12MM over a WIRE, BALANCE MIDDLEWEIGHT 190CM 190CM in the RCA Ost was 9:01:38 inflated using a 30 SHADY INDEFLATOR at 14 shady for 18 sec. 9:01:40 HR=86 bpm, DJTF=222/65 mmhg, SpO2=95 %, Cornejo=2 9:04:17 Activated Clotting Time Drawn 9:06:00 Balloon Removed. 9:06:39 HR=84 bpm, PGJK=907/68 mmhg, Cornejo=2 A STENT, 3.5 12MM PROMUS PREMIER 3.5 12MM was advanced through a JR 4.0 GUIDE CATHETER FR 6 over a WIRE, 9:07:06 BALANCE MIDDLEWEIGHT 190CM 190CM. A STENT, 3.5 12MM PROMUS PREMIER 3.5 12MM was deployed using a 30 SHADY INDEFLATOR at 18 atmospher es for 20 9:08:24 seconds in the RCA Ost. 9:09:18 ACT (Normal Range 90-180) = 385 9:09:58 Delivery device removed A BALLOON, 4.0 X 12MM NC EUPHORA 12MM was inserted over WIRE, BALANCE MIDDLEWEIGHT 190CM 190CM v ia 9:11:33 the RCA Ost. 9:11:38 HR=85 bpm, MACJ=379/70 mmhg, SpO2=95.0 %, Cornejo=2 A BALLOON, 4.0 X 12MM NC EUPHORA 12MM over a WIRE, BALANCE MIDDLEWEIGHT 190CM 190CM in the RCA O st 9:11:44 was inflated using a 30 SHADY INDEFLATOR at ~SHADY~ shady for ~SECONDS~ sec. 9:12:08 1st BMW Wire removed 9:12:57 Balloon Removed. 9:16:39 HR=86 bpm, IMPG=322/79 mmhg, SpO2=96.0 %, Cornejo=2 After removing the current catheter a JR 4.0 GUIDE CATHETER FR 6 was advanced over a WIRE, 3MMJ .035 180CM 9:21:06 180CM. OMNIPAQUE, 350 MG, 100ML 100ML was used for injections. 9:21:42 HR=85 bpm, MJIG=544/71 mmhg, Cornejo=2 9:23:19 A WIRE, HYDROSTEER 150CM ANGLED GLIDE 150CM was inserted via Fem Art (right). 9:25:36 Wire removed 9:25:53 1 mg VERSED given in lab by Antwon Griffith, MORELIA in Right Forearm via Peripheral IV. Ordered b y Esteban Akers. 9:26:06 25 mcg FENTANYL given in lab by Antwon Griffith, MORELIA in Right Forearm via Peripheral IV. Order ed by Esteban Akers. 9:26:41 HR=84 bpm, NAQF=670/70 mmhg, Cornejo=2 9:27:12 A WIRE, BALANCE MIDDLEWEIGHT 190CM 190CM was inserted via Fem Art (right). 9:27:51 Interventional wire has crossed the lesion A BALLOON, 4.0 X 12MM NC EUPHORA 12MM was inserted over WIRE, BALANCE MIDDLEWEIGHT 190CM 190CM v ia 9:28:41 the RCA Ost. A BALLOON, 4.0 X 12MM NC EUPHORA 12MM over a WIRE, BALANCE MIDDLEWEIGHT 190CM 190CM in the RCA O st 9:28:56 was inflated using a 30 SHADY INDEFLATOR at 18 shady for 20 sec. A BALLOON, 4.0 X 12MM NC EUPHORA 12MM over a WIRE, BALANCE MIDDLEWEIGHT 190CM 190CM in the RCA O st 9:30:41 was inflated using a 30 SHADY INDEFLATOR at 22 shady for 15 sec. 9:31:42 HR=82 bpm, NGLS=431/75 mmhg, SpO2=95.0 %, Cornejo=2 9:31:55 Balloon Removed. 9:32:02 Wire removed 9:32:04 Catheter was removed Assessment: Final Case, HR=85 BPM, Rhythm=sr, YLMR=377/75 mmhg, Chest Pain=0, Edema=None, [place] r=Normal, Skin = Warm, Dry Right Pulses: Royce Ped=2, Femoral=2 9:32:58 Left Pulses: Royce Ped=2, Femoral=2 Neurological: State=Alert, Ox3, GRANDA Respiration: Resp=18 B/min, SpO2=96 %, O2=2 lpm 9:34:59 Catheter(s) removed without difficulty 9:35:14 Case End 9:35:22 No case complications noted. 9:35:24 Cine recording checked. 9:35:26 Bedside Report will be given. 9:35:29 Implantable Device card placed in patient's chart. 9:35:32 Contrast Scanned 9:35:46 A Left Heart Cath was performed. 9:36:41 HR=84 bpm, RDLR=524/78 mmhg, SpO2=96.0 %, Cornejo=2 9:37:06 Vitals capture stopped. 9:43:50 Radial Compression Device Used. 9:47:07 60 mg EFFIENT given in lab by Antwon Griffith, MORELIA via Oral. Ordered by Esteban Akers. 9:47:23 Patient moved to [facility] End Study - Contrast Media Used In Study Contrast Total Opened (mL) Total Used (mL) Total Wasted (mL) Omnipaque 100 100 0 End Study - Maximum Contrast Load Max Contrast Load (mL) 348.1 End Study - Radiation Exposure Fluoro Time (minutes) 19.0 End Study - Patient Disposition Complications Transferred To Interventional Outcome No Telemetry Bed successful
[2016-07-25] MEDS: COLESEVELAM HCL 625 MG TAB PO SCH (10:38)
[2016-07-25] MEDS: EZETIMIBE 10 MG TAB PO SCH (10:38)
[2016-07-25] MEDS: ASPIRIN 325 MG TAB PO SCH (10:38)
[2016-07-25] MEDS: PANTOPRAZOLE SOD 40 MG DELAYED RELEASE TAB PO SCH (10:39)
[2016-07-25 11:17] LABS: HEMOGLOBIN A1a 1.1 %; HEMOGLOBIN A1b 1.7 %; HEMOGLOBIN Ao 85.8 %; HEMOGLOBIN LA1C 1.8 %
--- NOTE | 2016-07-25 11:18 | MA ---
cc: EDITH ESTEBAN DATE: 07/25/2016 1944 PROCEDURES PERFORMED 1. Left heart catheterization. 2. Selective right and left coronary angiography. 3. Left ventriculogram. 4. Successful PCI/SELINA to ostial right coronary artery. INDICATION [id number] GA/chest pain. DESCRIPTION OF PROCEDURE Consent is signed. The patient was brought into the cardiac microbiology lab technician in a fasting state. The right wrist was prepped and draped in sterile fashion. Using 1% lidocaine for local anesthesia and a micropuncture kit a 6-[place] sheath was inserted into the right radial artery, antispasmodic cocktail given. Then selective right and left coronary angiography was performed with a JR-4 and a JL-3.5 diagnostic catheters. Angiography was taken in multiple views. Then the JR-4 over a wire was introduced into the ventricle followed by pressure recording ventriculogram and pullback. Identified significant 90% lesion in the ostial right coronary artery, that not responded to IC nitroglycerin, amenable to intervention. Thus, we prepared to fix. Weight- based IV heparin was given for anticoagulation. The right coronary artery was engaged with JR-4 6-[place]ankan guide and the vessel was wired with a BMW wire which was anchored distally in the PDA. The lesion was predilated with a 3x12 balloon followed by insertion and deployment of a 3.5x12 drug-eluting stent. The drug-eluting stent was postdilated to high atmosphere with a noncompliant 4x 12 balloon. Final angiographic views revealed good stent apposition and expansion with SILVA III flow. The patient tolerated the procedure well without complications. Estimated blood loss was less than 30 ccs. TOTAL CONTRAST USED 110 ccs. The right radial access site was closed with a TR band. The patient was given Effient after the procedure. RESULTS LEFT VENTRICLE The left ventricular pressure was 111/7 with an LVEDP of 9. The aortic pressure was 91/61 with a mean of 76. There was mild gradient on pullback of 10 mmHg. Left ventriculogram revealed a symmetric contracted ventricle with estimated ejection fraction of 50%. ANGIOGRAPHY 1. The left main is patent with SILVA III flow. 2. LAD is a transapical vessel. It has minimal luminal irregularities and 20 % lesion proximally is giving off three diagonals which are patent with SILVA III flow and small. 3. Ramus is a significant vessel, has minimal luminal irregularities throughout, a 10% lesion proximally. 4. Left circumflex artery is a small vessel, only giving off one OM1. It has nonobstructive coronary artery disease. 5. Right coronary artery is a dominant vessel, is calcified at the ostium with a 90% lesion. IC Nitroglycerin was given without vasodilation of this segment. There is calcification at the ostium. There was also damping. CONCLUSION 1. Single vessel CAD status post successful PCI/SELINA to ostial right coronary artery. 2. Preserved LV systolic function. RECOMMENDATIONS The patient will go to [facility]. He should continue aggressive medical management or secondary prevention of coronary artery disease. After bedrest he should be encouraged to ambulate. He has been started on aspirin and Effient. He should continue on dual antiplatelet agents per ACC guidelines for at least 1 year. He can follow with cardiology as an outpatient. Also, continue aggresive medical management for CAD with beta-pau, DOMINGO inhibitor and high-dose statins. If the patient is CV stable, may be discharged home later today. MD IVONNE Skinner/KAREN /9:49 AM /10:53 AM REGGIE
[2016-07-25] MEDS ORDERED: PRASUGREL 10 MG TAB PO ONE (11:30)
[2016-07-25 12:28] LABS: APTT (PATIENT) 92.6 SEC (24.3-30.1)
--- NOTE | 2016-07-25 13:45 | HHI.PR ---
Subjective Remarks Patient seen in follow-up for NSTEMI. He is status post heart catheterization with stent placement. Patient reports that he is feeling great. Eager to go home. No chest pain or pressure. No shortness of breath. Cardiology cleared him for discharge later this afternoon if he remains stable. Objective Vitals Vital Signs Date Time Temp Pulse Resp B/P Pulse Ox O2 Delivery O2 Flow Rate FiO2 07/25/16 13:00 98 07/25/16 12:00 91 07/25/16 11:00 98.6 94 18 114/82 94 07/25/16 11:00 92 07/25/16 10:12 100 07/25/16 10:08 94 Room Air 07/25/16 10:08 86 18 114/82 94 07/25/16 07:49 93 21 07/25/16 07:00 90 07/25/16 06:00 90 07/25/16 05:00 86 07/25/16 04:14 98.5 87 116/ 92 07/25/16 04:00 104 07/25/16 03:34 88 07/25/16 02:00 84 07/25/16 01:00 82 07/25/16 00:49 98.0 97 101/68 91 07/25/16 00:00 86 07/24/16 23:00 88 07/24/16 22:00 94 07/24/16 21:00 104 07/24/16 20:14 91 High Flow Nasal Cannula 21 07/24/16 20:00 88 07/24/16 19:00 Room Air 96 07/24/16 19:00 98.0 88 91/70 93 07/24/16 19:00 88 07/24/16 18:00 94 07/24/16 17:00 88 07/24/16 16:00 88 07/24/16 15:50 Room Air 96 07/24/16 15:50 97.4 86 18 110/72 95 07/24/16 15:00 84 07/24/16 14:00 84 I/O 07/24/16 07/24/16 07/24/16 07/25/16 07/25/16 07/25/16 07:00 15:00 23:00 07:00 15:00 23:00 Intake Total 1060 ml 809 ml 240 ml 360 ml Output Total 250 ml 700 ml 250 ml 300 ml Balance 810 ml 109 ml -10 ml 60 ml Intake Oral 60 ml 720 ml 240 ml 360 ml IV Total 1000 ml 89 ml Output Urine Total 250 ml 700 ml 250 ml 300 ml # Voids 3 # Bowel Movements 1 Result Diagram: 07/25/16 0615 07/25/16 [address] Angiography 07/23/16 2350 Signed Impressions: Service Date/Time: Sunday, July 24, 2016 00:29 - CONCLUSION: 1. No pulmonary embolus or other acute abnormality demonstrated. 2. Coronary artery calcification. Left ventricular hypertrophy and calcification of the mitral valve annulus noted. 3. Small hiatal hernia. 4. Several tiny nonobstructing stones of the visualized upper kidneys. Yehuda Herring MD Chest X-Ray 07/23/16 4312 Signed Impressions: Service Date/Time: Sunday, July 24, 2016 00:01 - CONCLUSION: No evidence of acute cardiopulmonary disease. Yehuda Herring MD Objective Remarks GENERAL: This is a well-nourished, well-developed patient, in no apparent distress. CARDIOVASCULAR: Normal rate and regular rhythm without murmurs, gallops, or rubs. RESPIRATORY: Good respiratory efforts. Breath sounds equal and clear to auscultation bilaterally. GASTROINTESTINAL: Abdomen soft, non-tender, non-distended. Normal active bowel sounds MUSCULOSKELETAL: Extremities without cyanosis, or edema. NEURO: Alert & Oriented x4 to person, place, time, situation. Moves all ext x4 PSYCH: Appropriate mood and affect. Procedures Heart catheterization with stent placement, right coronary artery. A/P Problem List: (1) Non-STEMI (non-ST elevated myocardial infarction) ICD Code: I21.4 Status: Acute Plan: Patient is status post heart catheterization with drug-eluting stent placement in the right coronary artery. - He is cleared for discharge by cardiology. Patient discharged on aspirin, Effient, Coreg, statin, and lisinopril. 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 (2) Hypertension ICD Code: I10 Status: Acute Plan: Controlled. Medications as above. (3) Hyperlipidemia ICD Code: E78.5 Status: Acute Plan: On statin as above. (4) IFG (impaired fasting glucose) ICD Code: R73.01 Status: Acute (5) Hypokalemia ICD Code: E87.6 Status: Acute Plan: Resolved. Discharge Planning DC home later today in good condition. Cleared by Cardiology. Diet: Heart healthy Activity: Regular, per post catheterization instructions. Follow-up: Which her PCP and cardiology Meds: Per med rec Maryanne Reyna MD July 25, 2016 13:45
[2016-07-25] MEDS ORDERED: LISI10TA3 PO (13:50)
[2016-07-25] MEDS ORDERED: PRAS10TA PO (13:50)
[2016-07-25] MEDS ORDERED: CARV3.12 PO ×2 (13:54→13:55)
--- NOTE | 2016-07-25 13:56 | HHI.DCPOC ---
Discharge Care Plan Diagnosis: (1) Non-STEMI (non-ST elevated myocardial infarction) (2) Hypertension Goals to Promote Your Health * To prevent worsening of your condition and complications * To maintain your health at the optimal level Directions to Meet Your Goals Take your medications as prescribed Follow your dietary instruction Follow activity as directed Keep your appointments as scheduled Take your immunizations and boosters as scheduled If your symptoms worsen call your PCP, if no PCP go to Urgent Care Center or Emergency Room Smoking is Dangerous to Your Health. Avoid second hand smoke Call the 24-hour hour crisis hotline for domestic abuse at Maryanne Reyna MD July 25, 2016 13:55
[2016-07-25] MEDS ORDERED: IOHEXOL 350 MG/ML 100 ML BTL (for Cath Lab) OTHER ONE (15:21)
[2016-07-25] MEDS ORDERED: NORC5TAB PO (16:30)
--- NOTE | 2016-07-25 20:04 | EC ---
Study Study Date:07/25/2016 STUDY CONCLUSIONS SUMMARY - Left ventricle: The cavity size was normal. Wall thickness was normal. Systolic function was mildly reduced. The estimated ejection fraction was 45%. Wall motion was normal; there were no regional wall motion abnormalities. - Aortic valve: Calcified annulus. Trileaflet; moderately thickened, moderately calcified leaflets. Transvalvular velocity was increased. There was mild stenosis. Mild regurgitation. Mean gradient: 13mm Hg (S). Peak gradient: 23mm Hg (S). - Mitral valve: Calcified annulus. Moderately thickened, moderately calcified leaflets, . Mild regurgitation. - Tricuspid valve: Mild regurgitation. If LV function is below 40, please consider prescribing an ACEI or ARB or document rationale for non-use. PROCEDURE DATA STUDY STATUS: Elective. Procedure: Transthoracic echocardiography. Image quality was good. Scanning was performed from the parasternal, apical, and subcostal acoustic windows. Study completion: The patient tolerated the procedure well. Transthoracic echocardiography. M-mode, complete 2D, complete spectral Doppler, and color Doppler. Patient status: Inpatient. CARDIAC ANATOMY LEFT VENTRICLE: The cavity size was normal. Wall thickness was normal. Systolic function was mildly reduced. The estimated ejection fraction was 45%. Wall motion was normal; there were no regional wall motion abnormalities. AORTIC VALVE: Calcified annulus. Trileaflet; moderately thickened, moderately calcified leaflets. Doppler: Transvalvular velocity was increased. There was mild stenosis. Mild regurgitation. Mean gradient: 13mm Hg (S). Peak gradient: 23mm Hg (S). AORTA: Aortic root: The aortic root was normal in size. MITRAL VALVE: Calcified annulus. Moderately thickened, moderately calcified leaflets, . Doppler: Transvalvular velocity was within the normal range. There was no evidence for stenosis. Mild regurgitation. Valve area by pressure half-time: 2.5cm^2. Mean gradient: 3mm Hg (D). LEFT ATRIUM: The atrium was normal in size. RIGHT VENTRICLE: The cavity size was normal. Wall thickness was normal. PULMONIC VALVE: Doppler: Transvalvular velocity was within the normal range. There was no evidence for stenosis. No regurgitation. TRICUSPID VALVE: Structurally normal valve. Doppler: Transvalvular velocity was within the normal range. Mild regurgitation. PULMONARY ARTERY: The main pulmonary artery was normal-sized. Systolic pressure was within the normal range. RIGHT ATRIUM: The atrium was normal in size. PERICARDIUM: There was no pericardial effusion. SYSTEMIC VEINS: Inferior vena cava: The vessel was normal in size. BASIC MEASUREMENTS ADULT Normal Left ventricle LV internal dimension, ED, chordal level, *42.7 mm 43-52 PLAX LV internal dimension, ES, chordal level, 34.6 mm 23-38 PLAX Fractional shortening, chordal level, PLAX *19 % >29 LV posterior wall thickness, ED 6.34 mm IVS/LVPW ratio, ED *1.86 <1.3 Ventricular septum Septal thickness, ED 11.8 mm Left atrium Anterior-posterior dimension 35 mm Right ventricle RV internal dimension, ED, PLAX 27.5 mm 19-38 DOPPLER MEASUREMENTS ADULT Normal Aortic valve Peak velocity, S 242 cm/s Mean velocity, S 171 cm/s VTI, S 37.2 cm Mean gradient, S 13 mm Hg Peak gradient, S 23 mm Hg Mitral valve Peak E-wave velocity 66.9 cm/s Peak A-wave velocity 101 cm/s Mean velocity, D 76.1 cm/s Pressure half-time 88 ms Mean gradient, D 3 mm Hg Peak E/A ratio 0.7 Valve area, pressure half-time 2.5 cm^2 Maximal regurgitant velocity 565 cm/s Tricuspid valve Regurgitant peak velocity 254 cm/s Peak RV-RA gradient, S 26 mm Hg Maximal regurgitant velocity 254 cm/s LEGEND: Mean values are shown as u=mean value. Asterisk (*) anton values outside specified normal range. Prepared and signed by Marcelle Banks [id number]
--- NOTE | 2016-07-25 23:15 | EKG ---
Date Performed: 07/23/2016 Time Performed: 23:30:38 PTAGE: 70 years EKG: Sinus tachycardia. ST junctional depression is nonspecific Borderline ECG NO PREVIOUS TRACING DOCTOR: Juan Sun Interpretating Date/Time 07/25/2016 23:13:10
[2016-07-26] MEDS ORDERED: ASPIRIN 81 MG CHEW TAB PO SCH (09:00)
[2016-07-26] MEDS ORDERED: PRASUGREL 10 MG TAB PO SCH (09:00)
== END 2016-07-25 18:00 | disposition home or self-care (01) | DRG 247 ==
LOC: PHED 23:26 → UNDOADMOB 07-24 01:21 → OBSVTOIN 07-24 01:21 → PHEDA 07-24 01:21 → HCIS 07-24 07:48 → PHEDA 07-24 07:48 → UNDODISOB 07-25 18:00
PROVIDERS: ADMIT Hospitalist; ATTEND Family Medicine
PROC: 4A023N7 Measurement of Cardiac Sampling and Pressure, Left Heart, Percutaneous Approach (ICD-10-PCS; 2016-07-25)
PROC: B2111ZZ Fluoroscopy of Multiple Coronary Arteries using Low Osmolar Contrast (ICD-10-PCS; 2016-07-25)
PROC: B2151ZZ Fluoroscopy of Left Heart using Low Osmolar Contrast (ICD-10-PCS; 2016-07-25)
PROC: 027034Z Dilation of Coronary Artery, One Artery with Drug-eluting Intraluminal Device, Percutaneous Approach (ICD-10-PCS; principal; 2016-07-25 08:30)
DX: I21.4 Non-ST elevation (NSTEMI) myocardial infarction (principal); I10 Essential (primary) hypertension; E78.5 Hyperlipidemia, unspecified; E87.6 Hypokalemia; R73.01 Impaired fasting glucose; K21.9 Gastro-esophageal reflux disease without esophagitis; K44.9 Diaphragmatic hernia without obstruction or gangrene; Z79.82 Long term (current) use of aspirin; Z82.49 Family history of ischemic heart disease and other diseases of the circulatory system
CPT/HCPCS: 71010; 71275; 80048; 80053; 80061; 82550; 83036; 84443; 84484; 85002; 85025; 85379; 85610; 85730; 92928; 93005; 93306; 93458; 94640; 94664; 96361; 96365; 96376; C1725; C1769; C1874; C1887; C1893; J1644; J2250; J3010; J7030; Q9967

== ENCOUNTER 2016-07-27 02:32 | Observation (INO) | payer MEDICARE, BC ==
[2016-07-27] VITALS (8 sets, daily range): BP systolic 108–136; BP diastolic 67–79; PULSE 77–87; RESP 10–21; TEMP 98–98.8; O2SAT 94–100
[~2016-07-27] VITALS: Ht 167.6 cm; Wt 75.0 kg
[~2016-07-27 02:32] MED LIST changes: -AMLO10CA PO; -ASPI81TA11 PO; +CARV3.12 PO; -CIPR500T4 PO; -COEN100T PO; +COENPOW21 PO; -COLE625 PO; -EZET10 PO; +IBUP400T20 PO; +LISI10TA3 PO; -LOTR10CA PO; -MAGN500T4 PO; -METR-1 PO; +MULTTAB67 PO; +NORC5TAB PO; +OMEGCAP PO; -OMEGCAP21 PO; +PRAS10TA PO; +VENTAER INH; -VITA400C59 CHEW; -ZETI10TA5 PO
--- NOTE | 2016-07-27 02:55 | PD ---
HPI Chief Complaint: Chest Pain Time Seen by Provider: 02:43 Travel History International Travel<30 days: No Contact w/Intl Traveler<30days: No Traveled to known affect area: No History of Present Illness HPI 70-year-old male with CAD with recent cardiac catheter stenting of his RCA 2 days ago, here for evaluation of chest discomfort, shortness of breath, and difficulty taking a full breath. Symptoms started this evening. He feels as though his throat may be restricting his breathing. He is also complaining of lower chest tightness bilaterally. No fevers or chills. No cough or hemoptysis. No history of DVT or PE. He smoked a cigar every other day for several years, however states has quit. PFSH Past Medical History Asthma: Yes Cardiovascular Problems: Yes High Cholesterol: Yes Diminished Hearing: No GERD: Yes Hepatitis: Yes (autoimmune ) Hypertension: Yes Respiratory: Yes (Asthma, bronchospasm) Tetanus Vaccination: < 5 Years Influenza Vaccination: Yes Past Surgical History Cardiac Surgery: Yes (CATH 07/26/16) Tonsillectomy: Yes Social History Alcohol Use: Yes (glass of wine nightly) Tobacco Use: No Substance Use: No Allergies-Medications (Allergen,Severity, Reaction): Coded Allergies: No Known Allergies (Unverified , 07/27/16) Reported Meds & Prescriptions Reported Meds & Active Scripts Active [place] (Hydrocodone-Acetaminophen) 5-325 mg Tab 1 Tab PO Q6H PRN Carvedilol 3.125 Mg Tab 3.125 Mg PO BID Effient (Prasugrel) 10 Mg Tab 10 Mg PO DAILY Lisinopril 10 Mg Tab 10 Mg PO DAILY Reported Ventolin Hfa 18 GM Inh (Albuterol Sulfate) 90 Mcg/Act Aer 2 Puff INH Q4H PRN Ibuprofen 400 Mg Tab 400 Mg PO Q4H PRN Coenzyme Q10 1 Pow Pow 300 PO DAILY Multiple Vitamin 1 Tab 1 Tab PO DAILY [place]-3 Fish Oil/Vitamin (Fish Oil-Cholecalciferol) 1,000-1,000 Mg Cap 2 Cap PO DAILY Vitamin D (Cholecalciferol) 400 Unit Cap 400 Mg PO DAILY Nexium (Esomeprazole DR) 40 Mg Capdr 40 Mg PO DAILY Welchol (Colesevelam HCl) 625 Mg Tab 1,875 Mg PO BID Aspirin 81 Mg Tabdr 81 Mg PO DAILY Review of Systems Except as stated in HPI: all other systems reviewed are Neg Physical Exam Narrative GENERAL: Well-developed, well-nourished, comfortable, no acute distress. SKIN: Focused skin assessment warm/dry. HEAD: Atraumatic. Normocephalic. EYES: Pupils equal and round. No scleral icterus. No injection or drainage. ENT: No nasal bleeding or discharge. Mucous membranes pink and moist. Normal pharynx. No tongue or lip swelling. No drooling or stridor. Normal phonation. NECK: Trachea midline. No JVD. CARDIOVASCULAR: Regular rate and rhythm. Distal pulses brisk and equal bilaterally. RESPIRATORY: No accessory muscle use. Clear to auscultation. Breath sounds equal bilaterally. GASTROINTESTINAL: Abdomen soft, non-tender, nondistended. MUSCULOSKELETAL: No obvious deformities. No clubbing. No cyanosis. No edema. NEUROLOGICAL: Awake and alert. No obvious cranial nerve deficits. Motor grossly within normal limits. Normal speech. PSYCHIATRIC: Appropriate mood and affect; insight and judgment normal. Data Data Last Documented VS Vital Signs Date Time Temp Pulse Resp B/P Pulse Ox O2 Delivery O2 Flow Rate FiO2 07/27/16 03:08 12 97 Room Air 07/27/16 02:43 85 07/27/16 02:43 108/72 07/27/16 02:41 98.0 Orders Electrocardiogram (07/27/16 02:58) Basic Metabolic Panel (Bmp) (07/27/16 02:58) Ckmb (Isoenzyme) Profile (07/27/16 02:58) Complete Blood Count With Diff (07/27/16 02:58) Magnesium (Mg) (07/27/16 02:58) Prothrombin Time / Inr (Pt) (07/27/16 02:58) Act Partial Throm Time (Ptt) (07/27/16 02:58) Troponin I (07/27/16 02:58) Chest, Single Ap (07/27/16 02:58) Ecg Monitoring (07/27/16 02:58) Iv Access Insert/Monitor (07/27/16 02:58) Oximetry (07/27/16 02:58) Sodium Chloride 0.9% Flush (Ns Flush) (07/27/16 03:00) Labs Laboratory Tests Test 07/27/16 02:55 White Blood Count 7.4 TH/MM3 Red Blood Count 5.09 MIL/MM3 Hemoglobin 15.5 GM/DL Hematocrit 43.8 % Mean Corpuscular Volume 86.0 FL Mean Corpuscular Hemoglobin 30.5 PG Mean Corpuscular Hemoglobin 35.5 % Concent Red Cell Distribution Width 13.6 % Platelet Count 155 TH/MM3 Mean Platelet Volume 9.1 FL Neutrophils (%) (Auto) 45.8 % Lymphocytes (%) (Auto) 37.4 % Monocytes (%) (Auto) 12.5 % Eosinophils (%) (Auto) 3.6 % Basophils (%) (Auto) 0.7 % Neutrophils # (Auto) 3.4 TH/MM3 Lymphocytes # (Auto) 2.8 TH/MM3 Monocytes # (Auto) 0.9 TH/MM3 Eosinophils # (Auto) 0.3 TH/MM3 Basophils # (Auto) 0.1 TH/MM3 CBC Comment DIFF FINAL Differential Comment Prothrombin Time 11.2 SEC Prothromb Time International 1.0 RATIO Ratio Activated Partial 26.6 SEC Thromboplast Time Sodium Level 139 MEQ/L Potassium Level 4.2 MEQ/L Chloride Level 104 MEQ/L Carbon Dioxide Level 26.8 MEQ/L Anion Gap 8 MEQ/L Blood Urea Nitrogen 23 MG/DL Creatinine 1.23 MG/DL Estimat Glomerular Filtration 58 ML/MIN Rate Random Glucose 93 MG/DL Calcium Level 9.4 MG/DL Magnesium Level 2.3 MG/DL Total Creatine Kinase 93 U/L Troponin I 0.32 NG/ML MDM Medical Decision Making Medical Screen Exam Complete: Yes Emergency Medical Condition: Yes Medical Record Reviewed: Yes Interpretation(s) EKG: Sinus, rate 81, normal axis, normal intervals, nonspecific T-wave abnormality, no acute ischemic abnormality. Differential Diagnosis Stent reocclusion, ACS, pneumothorax, PE, pneumonia, pericarditis, allergic reaction, Narrative Course Initial vital signs show heart rate 84, blood pressure 136/79, pulse ox 100% on room air, oral temp of 98F. CBC is unremarkable. BMP is unremarkable. Troponin is 0.32. On 07/24/16 and was trending down from 0.89 to 0.55. Chest x-ray: No acute cardio pulmonary disease. Patient was made aware of all findings. He is still having a slight discomfort in his lower chest. He is concerned that he may be having an allergic reaction to the lisinopril Effient that he is on. There are no signs of angioedema on exam. His pharynx is normal. No drooling or stridor. Given the patient's symptoms of chest tightness with recent cardiac catheter with stent placement in the RCA, he will be admitted for overnight observation for serial cardiac enzymes. Troponin today is 0.32, and was 0.55 on 07/24/16. Patient is amenable to this plan. Case discussed with hospitalist Dr. Gamboa who will admit the patient to her service. Diagnosis Primary Impression: Chest pain Qualified Code: R07.9 - Chest pain, unspecified type Additional Impressions: Elevated troponin Dyspnea Qualified Code: R06.00 - Dyspnea, unspecified type Admitting Information Admitting Physician Requests: Observation Juan De Oliveira MD July 27, 2016 02:55
[2016-07-27] MEDS ORDERED: SODIUM CHLORIDE 0.9% FLUSH 10 ML FLUSH IVF PRN (03:00)
[2016-07-27 03:24] LABS: AUTOMATED NEUTROPHIL # 3.4 TH/MM3 (1.8-7.7); BASOPHIL # 0.1 TH/MM3 (0-0.2); BASOPHIL % 0.7 % (0.0-2.0); EOSINOPHIL # 0.3 TH/MM3 (0-0.4); EOSINOPHIL % 3.6 % (0.0-4.0); HEMATOCRIT 43.8 % (39.0-51.0); HEMO FLAGS DIFF FINAL; LYMPH % 37.4 % (9.0-44.0); LYMPHOCYTE # 2.8 TH/MM3 (1.0-4.8); MEAN CORPUSCULAR HEMOGLOBIN 30.5 PG (27.0-34.0); MEAN CORPUSCULAR HGB CONC 35.5 % (32.0-36.0); MONO % 12.5 % (0.0-8.0); NEUT % 45.8 % (16.0-70.0); PLATELET COUNT 155 TH/MM3 (150-450); RED BLOOD COUNT 5.09 MIL/MM3 (4.50-5.90); RED CELL DISTRIBUTION WIDTH 13.6 % (11.6-17.2); WHITE BLOOD COUNT 7.4 TH/MM3 (4.0-11.0)
[2016-07-27 03:29] LABS: APTT (PATIENT) 26.6 SEC (24.3-30.1); PROTHROMBIN TIME - PATIENT 11.2 SEC (9.8-11.6)
[2016-07-27 03:39] LABS: BICARBONATE 26.8 MEQ/L (21.0-32.0); MAGNESIUM 2.3 MG/DL (1.5-2.5); POTASSIUM 4.2 MEQ/L (3.5-5.1)
--- NOTE | 2016-07-27 03:59 | RADRPT ---
EXAM DATE/TIME: 07/27/2016 03:18 [facility] COMPARISON: CHEST SINGLE AP, July 24, 2016, 0:01. INDICATIONS : Chest pain. MEDICAL HISTORY : None. SURGICAL HISTORY : None. ENCOUNTER: Initial ACUITY: 1 day PAIN SCORE: 0/10 LOCATION: Bilateral chest FINDINGS: A single view of the chest demonstrates the lungs to be symmetrically aerated without evidence of mas s, infiltrate or effusion. The cardiomediastinal contours are unremarkable. Osseous structures are intact. CONCLUSION: 1. No acute cardiopulmonary disease. Camilo Ervin MD on July 27, 2016 at 3:57 Board Certified Radiologist. This report was verified electronically.
[2016-07-27] MEDS ORDERED: NALOXONE HCL 0.4 MG/ML AMP IV PRN (04:30)
[2016-07-27] MEDS ORDERED: ALBUTEROL SULFATE 90 MCG/ACT HFA 18 GM INHALER INH PRN (04:30)
[2016-07-27] MEDS ORDERED: SODIUM CHLORIDE 0.9% FLUSH 10 ML FLUSH IV FLUSH PRN (04:30)
--- NOTE | 2016-07-27 05:25 | HHI.HP ---
[facility] Primary Care Physician Tico Silva MD Admission Diagnosis chest pain, elevated troponin, dyspnea Diagnoses: Chief Complaint: shortness of breath Travel History International Travel<30 Days: No Contact w/Intl Traveler <30 Da: No Traveled to Known Affected Are: No History of Present Illness History of patient, ER physician communication, and review of medical records. Patient reported that he came back to the hospital today because he was having shortness of breath. He also reports of cough which is nonproductive. He felt more congestion in his throat and his upper airways. He reports he does have history of cough and he usually gets bronchospasms. He thought that this may be the reason. He however stated that he is just not able to lie down flat. His shortness of breath is worse when he lies down. Denies any chest pains. Patient states he was worried because he was just here at our hospital from July 24, 2016 to July 25, 2016 where he underwent coronary angiogram with 2 stents placed. He stated he was discharged on some new medications and he took the medications for the first time yesterday. He was worried that his symptoms may be secondary to allergic reactions to these new medications. His name medications upon review of records with him our Coreg, lisinopril, Effient. Patient however denies any swelling of his throat or rash or wheezing. Patient's reported the patient's feet bilaterally were also noted to be cold whenever she checked on him yesterday. Patient states that on July 24, 2016, he presented to the hospital with mostly congestion and cough. He was not short of breath than neither. He did not have chest pain then either. Further workup there revealed elevated troponins for which he had undergone coronary angiogram and was found to have inferior On review of medical records, patient had echocardiogram done on July 25, 2016 which revealed EF of 45%. 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2 77 14 109/67 98 Room Air 07/27/16 03:08 12 97 Room Air 07/27/16 02:43 85 18 100 Room Air 07/27/16 02:43 86 18 108/72 98 Room Air 07/27/16 02:41 98.0 84 18 136/79 100 Physical Exam GENERAL: This is a well-nourished, well-developed patient, in no apparent distress. SKIN: No rashes, ecchymoses or lesions. Cool and dry. HEAD: Atraumatic. Normocephalic. No temporal or scalp tenderness. EYES: No scleral icterus. No injection or drainage. ENT: Nose without bleeding, purulent drainage or septal hematoma. . Airway patent. NECK: Trachea midline. No JVD Supple, nontender, no meningeal signs. CARDIOVASCULAR: Regular rate and rhythm without murmurs, gallops, or rubs. RESPIRATORY: Bilateral basilar rales are throughout the lungs. GASTROINTESTINAL: Abdomen soft, non-tender, nondistended. No guarding. MUSCULOSKELETAL: Extremities without clubbing, cyanosis, or edema. No calf tenderness. NEUROLOGICAL: Awake and alert. Motor and sensory grossly within normal limits. Normal speech. Laboratory Laboratory Tests Test 07/27/16 02:55 White Blood Count 7.4 Red Blood Count 5.09 Hemoglobin 15.5 Hematocrit 43.8 Mean Corpuscular Volume 86.0 Mean Corpuscular Hemoglobin 30.5 Mean Corpuscular Hemoglobin 35.5 Concent Red Cell Distribution Width 13.6 Platelet Count 155 Mean Platelet Volume 9.1 Neutrophils (%) (Auto) 45.8 Lymphocytes (%) (Auto) 37.4 Monocytes (%) (Auto) 12.5 Eosinophils (%) (Auto) 3.6 Basophils (%) (Auto) 0.7 Neutrophils # (Auto) 3.4 Lymphocytes # (Auto) 2.8 Monocytes # (Auto) 0.9 Eosinophils # (Auto) 0.3 Basophils # (Auto) 0.1 CBC Comment DIFF FINAL Differential Comment Prothrombin Time 11.2 Prothromb Time International 1.0 Ratio Activated Partial 26.6 Thromboplast Time Sodium Level 139 Potassium Level 4.2 Chloride Level 104 Carbon Dioxide Level 26.8 Anion Gap 8 Blood Urea Nitrogen 23 Creatinine 1.23 Estimat Glomerular Filtration 58 Rate Random Glucose 93 Calcium Level 9.4 Magnesium Level 2.3 Total Creatine Kinase 93 Troponin I 0.32 Result Diagram: 07/27/1625407/27/16254 Imaging Last 48 hours Impressions Chest X-Ray 07/27/16257 Signed Impressions: Service Date/Time: Wednesday, July 27, 2016 03:18 - CONCLUSION: 1. No acute cardiopulmonary disease. 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 BNP to blood. If BNP is elevated, and since patient has long rales on lung exam, who would diurese the patient extensively. BiPAP as needed Resume home meds DVT prophylaxisheparin drip. GI prophylaxison pantoprazole. Discussed Condition With Patient, and the bedside Amelia Gamboa MD July 27, 2016 05:25
[2016-07-27] MEDS ORDERED: RESP: ALBUTEROL 2.5 MG/IPRATROPIUM 0.5 MG NEB (PRN) NEB (05:45)
[2016-07-27] MEDS ORDERED: FUROSEMIDE 20 MG/2 ML VIAL IV PUSH ONE (07:15)
--- NOTE | 2016-07-27 08:13 | HHI.PR ---
Subjective Remarks Follow-up dyspnea, elevated troponin. Patient describes a sensation of chest congestion. Reports cough productive of clear/whitish phlegm. Denies chest pain. Objective Vitals Vital Signs Date Time Temp Pulse Resp B/P Pulse Ox O2 Delivery O2 Flow Rate FiO2 07/27/16 07:19 98.4 87 21 122/79 97 07/27/16 05:06 98.2 77 14 109/67 98 Room Air 07/27/16 03:08 12 97 Room Air 07/27/16 02:43 85 18 100 Room Air 07/27/16 02:43 86 18 108/72 98 Room Air 07/27/16 02:41 98.0 84 18 136/79 100 Result Diagram: 07/27/1625407/27/16254 Imaging Last Impressions Chest X-Ray 07/27/16257 Signed Impressions: Service Date/Time: Wednesday, July 27, 2016 03:18 - CONCLUSION: 1. No acute cardiopulmonary disease. Camilo Ervin MD Objective Remarks General: No acute distress. Heart: Regular rate and rhythm. 2 to 3/6 systolic murmur best heard at the left sternal border. Lungs: Scattered rales. Breathing is nonlabored. Abdomen: Soft, nontender, nondistended. Extremities: No lower extremity edema. Psych: Alert and oriented. Procedures None Urinary Catheter: No Vascular Central Line Catheter: No A/P Problem List: (1) Dyspnea ICD Code: R06.00 Status: Acute (2) Elevated troponin ICD Code: R74.8 Status: Acute Assessment and Plan 1. Dyspnea: Possibly secondary to acute on chronic systolic congestive heart failure, fluid overload. One dose of Lasix ordered. Cardiology consultation is pending. BNP is normal. 2. Elevated troponin: Likely secondary to recent coronary angiogram. Cardiology consult pending. 3. GI prophylaxis: Protonix. 4. DVT prophylaxis: Patient is on aspirin, Effient. SCDs, LUANNE terry. Problem Qualifiers (1) Dyspnea: Qualified Code: R06.00 - Dyspnea, unspecified type Alessandro Hastings MD July 27, 2016 08:13
--- NOTE | 2016-07-27 08:33 | EKG ---
Date Performed: 07/27/2016 Time Performed: 02:38:17 PTAGE: 70 years EKG: Sinus rhythm NONSPECIFIC T-WAVE ABNORMALITY BORDERLINE ECG PREVIOUS TRACING : 07/23/2016 23.30 DOCTOR: Oh Oreilly Interpretating Date/Time 07/27/2016 08:32:17
[2016-07-27] MEDS ORDERED: LISINOPRIL 10 MG TAB PO SCH (09:00)
[2016-07-27] MEDS: PANTOPRAZOLE SOD 40 MG DELAYED RELEASE TAB PO SCH (09:59)
[2016-07-27] MEDS: CARVEDILOL 3.125 MG TAB PO SCH ×2 (09:59→21:00)
[2016-07-27] MEDS: PRASUGREL 10 MG TAB PO SCH (09:59)
[2016-07-27] MEDS: SODIUM CHLORIDE 0.9% FLUSH 10 ML FLUSH IV FLUSH SCH ×2 (09:59→21:00)
[2016-07-27] MEDS: ASPIRIN EC 81 MG TABEC PO SCH (09:59)
--- NOTE | 2016-07-27 11:12 | PD.CONS ---
HPI Service Cardiology Consult Requested By ED Reason for Consult SOB/Dyspnea Primary Care Physician Tico Silva MD History of Present Illness 70 y/o M with pmhx significant for recent PCI x1 to ostial RCA in the setting of NSTEMI, mild LV dysfunction estimated EF 45%, HLD re-admitted with complaints of mild shortness of breath at rest fo 1 day. He reports being in his usual state of neha until yesterday night when he started having dyspnea at rest. He denies chest pain, palpitations, syncope, PND, leg edema or noncompliance with medications. BNP 57. Review of Systems Consitutional: DENIES: Fatigue, Fever, Chills, Weight gain, Weight loss Eyes: DENIES: Amaurosis Fugax, Change in vision HEENT: DENIES: Lightheadedness, Change in hearing Respiratory: COMPLAINS OF: Shortness of breath, DENIES: See HPI, Cough, Snoring, Wheezing, Sputum production Cardiovascular: DENIES: See HPI, Chest pain, Palpitations, Syncope, Tachycardia Gastrointestinal: DENIES: Nausea, Vomiting, Change in bowel habits, Reflux, Bloody stools, Melena Genitourinary: DENIES: Urinary incontinence, Difficulty voiding Integumentary: DENIES: Rash Neurologic: DENIES: Tingling or numbness, Memory problems, Poor Balance, Stroke symptoms Musculoskeletal: DENIES: Joint pain, Muscle pain, Limited range of motion, Back pain Psychiatric: DENIES: Anxiety, Depression, Sleep disturbances Hematologic: DENIES: Bruising tendencies, Bleeding tendencies Endocrine: DENIES: Weight gain, Weight loss, Thyroid disease Past Family Social History Allergies: Coded Allergies: No Known Allergies (Unverified , 07/27/16) Past Medical History CAD s/p PCI HTN HLD Past Surgical History PCI Reported Medications Reported Meds & Active Scripts Active [place] (Hydrocodone-Acetaminophen) 5-325 mg Tab 1 Tab PO Q6H PRN Carvedilol 3.125 Mg Tab 3.125 Mg PO BID Effient (Prasugrel) 10 Mg Tab 10 Mg PO DAILY Lisinopril 10 Mg Tab 10 Mg PO DAILY Reported Ventolin Hfa 18 GM Inh (Albuterol Sulfate) 90 Mcg/Act Aer 2 Puff INH Q4H PRN Ibuprofen 400 Mg Tab 400 Mg PO Q4H PRN Coenzyme Q10 1 Pow Pow 300 PO DAILY Multiple Vitamin 1 Tab 1 Tab PO DAILY [place]-3 Fish Oil/Vitamin (Fish Oil-Cholecalciferol) 1,000-1,000 Mg Cap 2 Cap PO DAILY Vitamin D (Cholecalciferol) 400 Unit Cap 400 Mg PO DAILY Nexium (Esomeprazole DR) 40 Mg Capdr 40 Mg PO DAILY Welchol (Colesevelam HCl) 625 Mg Tab 1,875 Mg PO BID Aspirin 81 Mg Tabdr 81 Mg PO DAILY Active Ordered Medications Current Medications Medications (Trade) Dose Ordered Sig/Balaji Route Start Time Stop Time Status Last Admin (NS Flush) 2 ml UNSCH PRN IV FLUSH 07/27/16 04:30 (NS Flush) 2 ml BID IV FLUSH 07/27/16 09:00 07/27/16 09:59 (Narcan Inj) 0.4 mg UNSCH PRN IV 07/27/16 04:30 (Ecotrin Ec) 81 mg DAILY PO 07/27/16 09:00 07/27/16 09:59 (Coreg) 3.125 mg BID PO 07/27/16 09:00 07/27/16 09:59 (Welchol) 1,875 mg BID PO 07/27/16 09:00 (Prinivil) 10 mg DAILY PO 07/27/16 09:00 (Effient) 10 mg DAILY PO 07/27/16 09:00 07/27/16 09:59 (Protonix) 40 mg DAILY PO 07/27/16 09:00 07/27/16 09:59 Social History No smoking No illicit drug use No alcohol Physical Exam Vital Signs Vital Signs Date Time Temp Pulse Resp B/P Pulse Ox O2 Delivery O2 Flow Rate FiO2 07/27/16 07:19 98.4 87 21 122/79 97 07/27/16 05:06 98.2 77 14 109/67 98 Room Air 07/27/16 03:08 12 97 Room Air 07/27/16 02:43 85 18 100 Room Air 07/27/16 02:43 86 18 108/72 98 Room Air 07/27/16 02:41 98.0 84 18 136/79 100 Physical Exam GENERAL: Well-nourished, well-developed patient. SKIN: Warm and dry. HEAD: Normocephalic. EYES: No scleral icterus. No injection or drainage. NECK: Supple, trachea midline. No JVD or lymphadenopathy. CARDIOVASCULAR: Regular rate and rhythm without murmurs, gallops, or rubs. RESPIRATORY: Breath sounds equal bilaterally. No accessory muscle use. GASTROINTESTINAL: Abdomen soft, non-tender, nondistended. EXTREMITIES: No cyanosis, or edema. NEUROLOGICAL: Awake, alert, and oriented x 3. Non-focal. Laboratory Laboratory Tests Test 07/27/16 02:55 White Blood Count 7.4 Red Blood Count 5.09 Hemoglobin 15.5 Hematocrit 43.8 Mean Corpuscular Volume 86.0 Mean Corpuscular Hemoglobin 30.5 Mean Corpuscular Hemoglobin 35.5 Concent Red Cell Distribution Width 13.6 Platelet Count 155 Mean Platelet Volume 9.1 Neutrophils (%) (Auto) 45.8 Lymphocytes (%) (Auto) 37.4 Monocytes (%) (Auto) 12.5 Eosinophils (%) (Auto) 3.6 Basophils (%) (Auto) 0.7 Neutrophils # (Auto) 3.4 Lymphocytes # (Auto) 2.8 Monocytes # (Auto) 0.9 Eosinophils # (Auto) 0.3 Basophils # (Auto) 0.1 CBC Comment DIFF FINAL Differential Comment Prothrombin Time 11.2 Prothromb Time International 1.0 Ratio Activated Partial 26.6 Thromboplast Time Sodium Level 139 Potassium Level 4.2 Chloride Level 104 Carbon Dioxide Level 26.8 Anion Gap 8 Blood Urea Nitrogen 23 Creatinine 1.23 Estimat Glomerular Filtration 58 Rate Random Glucose 93 Calcium Level 9.4 Magnesium Level 2.3 Total Creatine Kinase 93 Troponin I 0.32 B-Type Natriuretic Peptide 57 Result Diagram: 07/27/165 07/27/16254 Imaging Last Impressions Chest X-Ray 07/27/16257 Signed Impressions: Service Date/Time: Wednesday, July 27, 2016 03:18 - CONCLUSION: 1. No acute cardiopulmonary disease. Camilo Ervin MD Assessment and Plan Problem List: (1) Heart failure Assessment and Plan: 70 y/o M admitted with acute on chronic HF exacerbation. Elevated troponinsecondary to recent coronary angiogram. Doing much better. Recommendations: 1. Cont ASA and Effient (DAPT) 2. Cont Coreg 3. Cont Lisinopril 4. Start Lasix 20mg PO daily 5. Encourage ambulation and diet (2) Hyperlipidemia (3) Hypertension (4) Non-STEMI (non-ST elevated myocardial infarction) (5) Dyspnea Problem Qualifiers (1) Heart failure: (2) Dyspnea: Qualified Code: R06.00 - Dyspnea, unspecified type Esteban Akers MD July 27, 2016 11:12
[2016-07-27] MEDS: COLESEVELAM HCL 625 MG TAB PO SCH ×2 (12:51→21:00)
[2016-07-28 03:20] VITALS: BP 121/70; PULSE 79; RESP 18; TEMP 97.8; O2SAT 93
[2016-07-28 07:51] VITALS: BP 125/80; PULSE 80; RESP 18; TEMP 98.4; O2SAT 97
--- NOTE | 2016-07-28 08:01 | HHI.PR ---
Subjective Remarks Follow-up dyspnea, elevated troponin. The patient has no complaints this morning. He states that he is ready to go home. Denies chest pain or dyspnea. States that he was able to lie flat last night. Objective Vitals Vital Signs Date Time Temp Pulse Resp B/P Pulse Ox O2 Delivery O2 Flow Rate FiO2 07/28/16 07:51 98.4 80 18 125/80 97 07/28/16 03:20 97.8 79 18 121/70 93 07/27/16 20:41 98.4 84 18 120/71 96 07/27/16 12:39 98.8 81 18 111/68 94 I/O 07/27/16 07/27/16 07/27/16 07/28/16 07/28/16 07/28/16 07:00 15:00 23:00 07:00 15:00 23:00 Intake Total 400 ml Balance 400 ml Intake Oral 400 ml Result Diagram: 07/27/16 0255 07/27/16 0255 Imaging Last Impressions Chest X-Ray 07/27/16 0258 Signed Impressions: Service Date/Time: Wednesday, July 27, 2016 03:18 - CONCLUSION: 1. No acute cardiopulmonary disease. Camilo Ervin MD Objective Remarks General: No acute distress. Heart: Regular rate and rhythm. 2 to 3/6 systolic murmur best heard at the left sternal border. Lungs: Scattered rales. Breathing is nonlabored. Abdomen: Soft, nontender, nondistended. Extremities: No lower extremity edema. Psych: Alert and oriented. Procedures None Urinary Catheter: No Vascular Central Line Catheter: No A/P Problem List: (1) Dyspnea ICD Code: R06.00 Status: Acute (2) Elevated troponin ICD Code: R74.8 Status: Acute (3) Acute exacerbation of CHF (congestive heart failure) ICD Code: I50.9 Status: Acute Assessment and Plan 1. Acute exacerbation of chronic systolic congestive heart failure: Appreciate cardiology recommendations. Continue Lasix. Symptoms have improved. 2. Elevated troponin: Likely secondary to recent coronary angiogram. Appreciate cardiology recommendations. 3. GI prophylaxis: Protonix. 4. DVT prophylaxis: Patient is on aspirin, Effient. COURTNEYs, LUANNE terry. Discharge Planning Plan for discharge home when cleared by cardiology. Problem Qualifiers (1) Dyspnea: Qualified Code: R06.00 - Dyspnea, unspecified type (2) Acute exacerbation of CHF (congestive heart failure): Qualified Code: I50.23 - Acute on chronic systolic congestive heart failure Alessandro Hastings MD July 28, 2016 08:01
[2016-07-28] MEDS ORDERED: FURO20TA PO (08:04)
[2016-07-28] MEDS ORDERED: POTA10CA PO (08:04)
[2016-07-28] MEDS ORDERED: FUROSEMIDE 20 MG TAB PO SCH (09:00)
[2016-07-28] MEDS ORDERED: POTASSIUM CHLORIDE 10 MEQ CONTROLLED RELEASE TAB PO SCH (09:00)
--- NOTE | 2016-07-28 09:44 | PD.CARD.PN ---
Subjective Subjective Remarks no CV complaints Ambulating without difficulty No SOB Objective Medications Current Medications Medications (Trade) Dose Ordered Sig/Balaji Route Start Time Stop Time Status Last Admin (NS Flush) 2 ml UNSCH PRN IV FLUSH 07/27/16 04:30 (NS Flush) 2 ml BID IV FLUSH 07/27/16 09:00 07/27/16 21:00 (Narcan Inj) 0.4 mg UNSCH PRN IV 07/27/16 04:30 (Ecotrin Ec) 81 mg DAILY PO 07/27/16 09:00 07/27/16 09:59 (Coreg) 3.125 mg BID PO 07/27/16 09:00 07/27/16 21:00 (Welchol) 1,875 mg BID PO 07/27/16 09:00 07/27/16 21:00 (Prinivil) 10 mg DAILY PO 07/27/16 09:00 (Effient) 10 mg DAILY PO 07/27/16 09:00 07/27/16 09:59 (Protonix) 40 mg DAILY PO 07/27/16 09:00 07/27/16 09:59 (Lasix) 20 mg DAILY PO 07/28/16 09:00 (KCl) 10 meq DAILY PO 07/28/16 09:00 Vital Signs / I&O Vital Signs Date Time Temp Pulse Resp B/P Pulse Ox O2 Delivery O2 Flow Rate FiO2 07/28/16 07:51 98.4 80 18 125/80 97 07/28/16 03:20 97.8 79 18 121/70 93 07/27/16 20:41 98.4 84 18 120/71 96 07/27/16 12:39 98.8 81 18 111/68 94 I/O 07/27/16 07/27/16 07/27/16 07/28/16 07/28/16 07/28/16 07:00 15:00 23:00 07:00 15:00 23:00 Intake Total 400 ml Balance 400 ml Intake Oral 400 ml Physical Exam GENERAL: Well-nourished, well-developed patient. SKIN: Warm and dry. HEAD: Normocephalic. EYES: No scleral icterus. No injection or drainage. NECK: Supple, trachea midline. No JVD or lymphadenopathy. CARDIOVASCULAR: Regular rate and rhythm without murmurs, gallops, or rubs. RESPIRATORY: Breath sounds equal bilaterally. No accessory muscle use. GASTROINTESTINAL: Abdomen soft, non-tender, nondistended. EXTREMITIES: No cyanosis, or edema. NEUROLOGICAL: Awake, alert, and oriented x 3. Non-focal. Laboratory Laboratory Tests Test 07/27/16 07/27/16 10:31 14:22 Total Creatine Kinase 82 U/L 73 U/L Troponin I 0.22 NG/ML 0.20 NG/ML Assessment and Plan Problem List: (1) Heart failure Assessment and Plan: Doing better. No SOB, No CP. Dry cough ? ACEi side effect switch to low dose ARB Cont DAPT (ASA and Effient) D/C on Lasix 20mg PO daily Stable from CV standpoint to D/C home today (2) Hyperlipidemia (3) Hypertension (4) Non-STEMI (non-ST elevated myocardial infarction) (5) Dyspnea Problem Qualifiers (1) Heart failure: (2) Dyspnea: Qualified Code: R06.00 - Dyspnea, unspecified type Esteban Akers MD July 28, 2016 09:44
[2016-07-28] MEDS: COLESEVELAM HCL 625 MG TAB PO SCH (09:47)
[2016-07-28] MEDS: PANTOPRAZOLE SOD 40 MG DELAYED RELEASE TAB PO SCH (09:47)
[2016-07-28] MEDS: CARVEDILOL 3.125 MG TAB PO SCH (09:47)
[2016-07-28] MEDS: PRASUGREL 10 MG TAB PO SCH (09:48)
[2016-07-28] MEDS: ASPIRIN EC 81 MG TABEC PO SCH (09:48)
[2016-07-28] MEDS: SODIUM CHLORIDE 0.9% FLUSH 10 ML FLUSH IV FLUSH SCH (09:49)
[2016-07-28] MEDS ORDERED: COZA25TA PO (10:05)
--- NOTE | 2016-07-28 10:06 | HHI.DCPOC ---
Discharge Care Plan Diagnosis: (1) Acute exacerbation of CHF (congestive heart failure) (2) Hypertension (3) Hyperlipidemia (4) Elevated troponin Goals to Promote Your Health * To prevent worsening of your condition and complications * To maintain your health at the optimal level Directions to Meet Your Goals Take your medications as prescribed Follow your dietary instruction Follow activity as directed Keep your appointments as scheduled Take your immunizations and boosters as scheduled If your symptoms worsen call your PCP, if no PCP go to Urgent Care Center or Emergency Room Smoking is Dangerous to Your Health. Avoid second hand smoke Call the 24-hour hour crisis hotline for domestic abuse at Alessandro Hastings MD July 28, 2016 10:06
--- NOTE | 2016-07-28 18:20 | EKG ---
Date Performed: 07/27/2016 Time Performed: 15:01:42 PTAGE: 70 years EKG: Sinus rhythm NONSPECIFIC T-WAVE ABNORMALITY BORDERLINE ECG Compared to prior tracing no significant change. PREVIOUS TRACING : 07/27/2016 09.34 DOCTOR: Camilo Schwartz Interpretating Date/Time 07/28/2016 18:20:17
--- NOTE | 2016-07-28 18:21 | EKG ---
Date Performed: 07/27/2016 Time Performed: 09:34:00 PTAGE: 70 years EKG: Sinus rhythm NONSPECIFIC T-WAVE ABNORMALITY BORDERLINE ECG Compared to prior tracing no significant change. PREVIOUS TRACING : 07/27/2016 02.38 DOCTOR: Camilo Schwartz Interpretating Date/Time 07/28/2016 18:20:38
[2016-07-29] MEDS ORDERED: LOSARTAN 25 MG TAB PO SCH (09:00)
== END 2016-07-28 11:37 | disposition home or self-care (01) ==
LOC: NEPE 02:32 → NEDA 04:21 → NEPHCDU 06:30
PROVIDERS: ADMIT Family Medicine; ATTEND Family Medicine
DX: I11.0 Hypertensive heart disease with heart failure (principal); I50.23 Acute on chronic systolic (congestive) heart failure; I21.4 Non-ST elevation (NSTEMI) myocardial infarction; E78.5 Hyperlipidemia, unspecified; I25.10 Atherosclerotic heart disease of native coronary artery without angina pectoris; K21.9 Gastro-esophageal reflux disease without esophagitis; E78.00 Pure hypercholesterolemia, unspecified; J45.909 Unspecified asthma, uncomplicated; K75.4 Autoimmune hepatitis; Z95.5 Presence of coronary angioplasty implant and graft; Z87.891 Personal history of nicotine dependence; Z79.82 Long term (current) use of aspirin; Z85.828 Personal history of other malignant neoplasm of skin
CPT/HCPCS: 71010; 80048; 82550; 83735; 83880; 84484; 85025; 85610; 85730; 93005; 94664; 99285; G0378; J1940

== ENCOUNTER 2016-08-01 06:54 | Emergency (ER) | payer MEDICARE, BC ==
[2016-08-01] VITALS (9 sets, daily range): BP systolic 116–154; BP diastolic 67–87; PULSE 80–88; RESP 14–17; TEMP 97.7–98; O2SAT 96–99
[~2016-08-01] VITALS: Ht 167.6 cm; Wt 73.6 kg
[~2016-08-01 06:54] MED LIST changes: +COZA25TA PO; +FURO20TA PO; +POTA10CA PO
[2016-08-01] MEDS ORDERED: NITROGLYCERIN 0.4 MG SL 25 TABS/BTL SL ONE (07:15)
[2016-08-01] MEDS ORDERED: SODIUM CHLORIDE 0.9% FLUSH 10 ML FLUSH IVF PRN (07:15)
[2016-08-01] MEDS ORDERED: ASPIRIN 81 MG CHEW TAB PO ONE (07:15)
[2016-08-01] MEDS ORDERED: ONDANSETRON HCL 4 MG/2 ML VIAL IV PUSH ONE (07:15)
--- NOTE | 2016-08-01 07:20 | PD ---
HPI Chief Complaint: Cardiac Complaint Time Seen by Provider: 07:02 Travel History International Travel<30 days: No Contact w/Intl Traveler<30days: No Traveled to known affect area: No History of Present Illness HPI The patient is a 70-year-old male who presents emergency department for chest discomfort. The patient was recently admitted to the hospital at the beginning of July, underwent cardiac catheterization by Dr. Cheatham, had a drug- eluting stent placed to the right ostial RCA. The patient is discharged home, however, return to the emergency department was a 23 hour observation for continuing chest pain and discomfort. The patient had a dry cough at that time and was taken off of his DOMINGO inhibitor. The patient states he got up this morning to drink coffee and had a small amount of chest discomfort. The chest discomfort was substernal, nonradiating, described as achy, and mild in intensity. The patient states he was at the point yesterday, walked for 15 minutes without any chest pain or shortness of breath. He has been taking his Effient and aspirin as directed, last dose was yesterday morning. He has not taken his medications today. He does have a history of bronchospasm, states his symptoms are very similar to when he had his stent placed, but also very similar to his history of bronchospasm. He does note a minimal dry nonproductive cough. He denies any acute shortness of breath, nausea, vomiting , or diaphoresis. The patient's primary physician is Dr. Silva. [facility] Past Medical History Arthritis: Yes Asthma: Yes Autoimmune Disease: Yes (autoimmune hepatitis) Heart Rhythm Problems: No Cancer: No Cardiac Catheterization: Yes (07/26/16) Cardiovascular Problems: Yes High Cholesterol: Yes Chest Pain: No Congestive Heart Failure: No COPD: No Cerebrovascular Accident: Yes (RCA STENT PLACEMENT 2016) Diminished Hearing: No Endocrine: No GERD: Yes Hepatitis: Yes (autoimmune ) Hiatal Hernia: No Hypertension: Yes Musculoskeletal: Yes Neurologic: No Psychiatric: No Reproductive: No Respiratory: Yes (Asthma, bronchospasm) Sleep Apnea: No Ulcer: No Influenza Vaccination: Yes Past Surgical History Cardiac Surgery: Yes (CATH 07/26/16) Coronary Stent: Yes (RIGHT RCA) Tonsillectomy: Yes Social History Alcohol Use: Yes (glass of wine nightly) Tobacco Use: Yes (CIGARS EVERY OTHER DAY) Substance Use: No Allergies-Medications (Allergen,Severity, Reaction): Coded Allergies: No Known Allergies (Unverified , 07/27/16) Reported Meds & Prescriptions Reported Meds & Active Scripts Active Cozaar (Losartan Potassium) 25 Mg Tab 25 Mg PO DAILY Potassium Chloride ER (Potassium Chloride) 10 Meq Cap 10 Meq PO DAILY Furosemide 20 Mg Tab 20 Mg PO DAILY Carvedilol 3.125 Mg Tab 3.125 Mg PO BID Effient (Prasugrel) 10 Mg Tab 10 Mg PO DAILY Reported Ventolin Hfa 18 GM Inh (Albuterol Sulfate) 90 Mcg/Act Aer 2 Puff INH Q4H PRN Ibuprofen 400 Mg Tab 400 Mg PO Q4H PRN Coenzyme Q10 1 Pow Pow 300 PO DAILY Multiple Vitamin 1 Tab 1 Tab PO DAILY [place]-3 Fish Oil/Vitamin (Fish Oil-Cholecalciferol) 1,000-1,000 Mg Cap 2 Cap PO DAILY Vitamin D (Cholecalciferol) 400 Unit Cap 1,000 Mg PO DAILY Nexium (Esomeprazole DR) 40 Mg Capdr 40 Mg PO DAILY Welchol (Colesevelam HCl) 625 Mg Tab 1,875 Mg PO BID Aspirin 81 Mg Tabdr 81 Mg PO DAILY Review of Systems Except as stated in HPI: all other systems reviewed are Neg General / Constitutional: No: Fever HENT: No: Lightheadedness Cardiovascular: Positive: Chest Pain or Discomfort, No: Diaphoresis Respiratory: No: Shortness of Breath Gastrointestinal: No: Nausea, Vomiting, Abdominal Pain Musculoskeletal: No: Edema Neurologic: No: Dizziness Physical Exam Narrative GENERAL: Awake, alert, pleasant 70-year-old male who appears his stated age and is in no acute respiratory distress. SKIN: Focused skin assessment warm/dry. HEAD: Atraumatic. Normocephalic. EYES: Pupils equal and round. No scleral icterus. No injection or drainage. ENT: No nasal bleeding or discharge. Mucous membranes pink and moist. NECK: Trachea midline. No JVD. CARDIOVASCULAR: Regular rate and rhythm. Holosystolic murmur. RESPIRATORY: No accessory muscle use. Clear to auscultation. Breath sounds equal bilaterally. GASTROINTESTINAL: Abdomen soft, non-tender, nondistended. MUSCULOSKELETAL: No obvious deformities. No clubbing. No cyanosis. No edema. NEUROLOGICAL: Awake and alert. No obvious cranial nerve deficits. Motor grossly within normal limits. Normal speech. PSYCHIATRIC: Appropriate mood and affect; insight and judgment normal. Data Data Last Documented VS Vital Signs Date Time Temp Pulse Resp B/P Pulse Ox O2 Delivery O2 Flow Rate FiO2 08/01/16 08:52 98.0 81 154/83 97 Nasal Cannula 2 08/01/16 08:00 14 Orders Electrocardiogram (08/01/16 07:02) Electrocardiogram (08/01/16 07:15) B-Type Natriuretic Peptide (08/01/16 07:15) Ckmb (Isoenzyme) Profile (08/01/16 07:15) Complete Blood Count With Diff (08/01/16 07:15) Comprehensive Metabolic Panel (08/01/16 07:15) Magnesium (Mg) (08/01/16 07:15) Prothrombin Time / Inr (Pt) (08/01/16 07:15) Act Partial Throm Time (Ptt) (08/01/16 07:15) Troponin I (08/01/16 07:15) Lipase (08/01/16 07:15) Chest, Single Ap (08/01/16 07:15) Ecg Monitoring (08/01/16 07:15) Bilateral Bp Monitoring (08/01/16 07:15) Iv Access Insert/Monitor (08/01/16 07:15) Oximetry (08/01/16 07:15) Oxygen Administration (08/01/16 07:15) Aspirin Chew (Aspirin Chew) (08/01/16 07:15) Sodium Chloride 0.9% Flush (Ns Flush) (08/01/16 07:15) Nitroglycerin Sl (Nitrostat Sl) (08/01/16 07:15) Ondansetron Inj (Zofran Inj) (08/01/16 07:15) Troponin I (08/01/16 10:10) Labs Laboratory Tests Test 08/01/16 08/01/16 07:10 10:10 White Blood Count 5.4 TH/MM3 Red Blood Count 5.04 MIL/MM3 Hemoglobin 15.4 GM/DL Hematocrit 43.9 % Mean Corpuscular Volume 87.2 FL Mean Corpuscular Hemoglobin 30.7 PG Mean Corpuscular Hemoglobin 35.2 % Concent Red Cell Distribution Width 13.3 % Platelet Count 161 TH/MM3 Mean Platelet Volume 9.0 FL Neutrophils (%) (Auto) 58.6 % Lymphocytes (%) (Auto) 28.6 % Monocytes (%) (Auto) 9.6 % Eosinophils (%) (Auto) 2.5 % Basophils (%) (Auto) 0.7 % Neutrophils # (Auto) 3.2 TH/MM3 Lymphocytes # (Auto) 1.6 TH/MM3 Monocytes # (Auto) 0.5 TH/MM3 Eosinophils # (Auto) 0.1 TH/MM3 Basophils # (Auto) 0.0 TH/MM3 CBC Comment DIFF FINAL Differential Comment Prothrombin Time 11.0 SEC Prothromb Time International 1.0 RATIO Ratio Activated Partial 25.5 SEC Thromboplast Time Sodium Level 138 MEQ/L Potassium Level 4.1 MEQ/L Chloride Level 107 MEQ/L Carbon Dioxide Level 20.2 MEQ/L Anion Gap 11 MEQ/L Blood Urea Nitrogen 18 MG/DL Creatinine 1.22 MG/DL Estimat Glomerular Filtration 59 ML/MIN Rate Random Glucose 105 MG/DL Calcium Level 9.2 MG/DL Magnesium Level 2.3 MG/DL Total Bilirubin 0.3 MG/DL Aspartate Amino Transf 22 U/L (AST/SGOT) Alanine Aminotransferase 39 U/L (ALT/SGPT) Alkaline Phosphatase 71 U/L Total Creatine Kinase 77 U/L Troponin I LESS THAN 0.02 LESS THAN 0.02 NG/ML NG/ML B-Type Natriuretic Peptide 23 PG/ML Total Protein 7.6 GM/DL Albumin 3.8 GM/DL Lipase 243 U/L MDM Medical Decision Making Medical Screen Exam Complete: Yes Emergency Medical Condition: Yes Medical Record Reviewed: Yes Interpretation(s) EKG reveals normal sinus rhythm with a rate of 80. Pressure AV block with SD interval of 211 ms. Nonspecific T-wave changes. Q wave in lead 3. EKG #2 reveals normal sinus rhythm with first-degree AV block. No significant changes compared to EKG #1. Laboratory Tests Test 08/01/16 07:10 White Blood Count 5.4 TH/MM3 Red Blood Count 5.04 MIL/MM3 Hemoglobin 15.4 GM/DL Hematocrit 43.9 % Mean Corpuscular Volume 87.2 FL Mean Corpuscular Hemoglobin 30.7 PG Mean Corpuscular Hemoglobin 35.2 % Concent Red Cell Distribution Width 13.3 % Platelet Count 161 TH/MM3 Mean Platelet Volume 9.0 FL Neutrophils (%) (Auto) 58.6 % Lymphocytes (%) (Auto) 28.6 % Monocytes (%) (Auto) 9.6 % Eosinophils (%) (Auto) 2.5 % Basophils (%) (Auto) 0.7 % Neutrophils # (Auto) 3.2 TH/MM3 Lymphocytes # (Auto) 1.6 TH/MM3 Monocytes # (Auto) 0.5 TH/MM3 Eosinophils # (Auto) 0.1 TH/MM3 Basophils # (Auto) 0.0 TH/MM3 CBC Comment DIFF FINAL Differential Comment Prothrombin Time 11.0 SEC Prothromb Time International 1.0 RATIO Ratio Activated Partial 25.5 SEC Thromboplast Time Sodium Level 138 MEQ/L Potassium Level 4.1 MEQ/L Chloride Level 107 MEQ/L Carbon Dioxide Level 20.2 MEQ/L Anion Gap 11 MEQ/L Blood Urea Nitrogen 18 MG/DL Creatinine 1.22 MG/DL Estimat Glomerular Filtration 59 ML/MIN Rate Random Glucose 105 MG/DL Calcium Level 9.2 MG/DL Magnesium Level 2.3 MG/DL Total Bilirubin 0.3 MG/DL Aspartate Amino Transf 22 U/L (AST/SGOT) Alanine Aminotransferase 39 U/L (ALT/SGPT) Alkaline Phosphatase 71 U/L Total Creatine Kinase 77 U/L Troponin I LESS THAN 0.02 NG/ML Total Protein 7.6 GM/DL Albumin 3.8 GM/DL Lipase 243 U/L Last Impressions Chest X-Ray 08/01/16 0715 Signed Impressions: Service Date/Time: Monday, August 01, 2016 07:13 - CONCLUSION: No acute disease. Rambo Mehta MD Differential Diagnosis Differential diagnosis includes acute coronary syndrome, recent thrombosis of stent, anxiety, GERD, esophageal spasm, medication side effect, bronchospasm. Narrative Course IV was established, labs were drawn and sent, and the patient was placed on cardiac telemetry monitoring and continuous pulse oximetry monitoring. EKG was ordered and interpreted. The patient was administered aspirin, nitroglycerin sublingual, and Zofran. Chest x-ray is normal. Patient's troponin is less than 0.02, CMP is unremarkable. A call was placed to the patient's chemist proteins , Dr. Cheatham, at 7:55 AM. I discussed the patient Dr. Cheatham at 8:18 AM who thinks his symptoms may be related to anxiety over his recent stent placement. After discussion with Dr. Cheatham it was agreed the patient had 2 sets of cardiac enzymes , if negative, he would follow-up as an outpatient Dr. Cheatham's office. The patient is comfortable with this plan of care. Therefore, 3 hour troponin was ordered for 10:10 AM. The second troponin is less than 0.02, therefore, the patient is stable for outpatient follow-up. He is advised to follow-up with his chemist proteins. Diagnosis Primary Impression: Chest pain Qualified Code: R07.9 - Chest pain, unspecified type Patient Instructions: General Instructions Additional Instructions: Continue your current medications as previously directed. Follow-up with your primary physician and chemist proteins. Return if symptoms worsen or progress. Med/Other Pt SpecificInfo: No Change to Meds Disposition: 01 DISCHARGE HOME Condition: Stable Gabo Morrow MD August 01, 2016 07:20
[2016-08-01 07:29] LABS: AUTOMATED NEUTROPHIL # 3.2 TH/MM3 (1.8-7.7); BASOPHIL % 0.7 % (0.0-2.0); EOSINOPHIL # 0.1 TH/MM3 (0-0.4); EOSINOPHIL % 2.5 % (0.0-4.0); HEMATOCRIT 43.9 % (39.0-51.0); HEMO FLAGS DIFF FINAL; LYMPH % 28.6 % (9.0-44.0); LYMPHOCYTE # 1.6 TH/MM3 (1.0-4.8); MEAN CELL VOLUME 87.2 FL (80.0-100.0); MEAN CORPUSCULAR HEMOGLOBIN 30.7 PG (27.0-34.0); MEAN CORPUSCULAR HGB CONC 35.2 % (32.0-36.0); MONO % 9.6 % (0.0-8.0); NEUT % 58.6 % (16.0-70.0); PLATELET COUNT 161 TH/MM3 (150-450); RED BLOOD COUNT 5.04 MIL/MM3 (4.50-5.90); RED CELL DISTRIBUTION WIDTH 13.3 % (11.6-17.2); WHITE BLOOD COUNT 5.4 TH/MM3 (4.0-11.0)
[2016-08-01 07:39] LABS: APTT (PATIENT) 25.5 SEC (24.3-30.1)
[2016-08-01 07:45] LABS: ALT (GPT) 39 U/L (12-78); ANION GAP 11 MEQ/L (5-15); AST (GOT) 22 U/L (15-37); BICARBONATE 20.2 MEQ/L (21.0-32.0); BLOOD UREA NITROGEN 18 MG/DL (7-18); CHLORIDE 107 MEQ/L (98-107); GLOMERULAR FILTRATION RATE 59 ML/MIN (>89); MAGNESIUM 2.3 MG/DL (1.5-2.5); POTASSIUM 4.1 MEQ/L (3.5-5.1); SODIUM (NA) 138 MEQ/L (136-145)
--- NOTE | 2016-08-01 07:45 | RADRPT ---
EXAM DATE/TIME: 08/01/2016 07:13 [facility] COMPARISON: No previous studies available for comparison. INDICATIONS : Chest pains and pressure mid sternal, stent placement x1 week ago. MEDICAL HISTORY : Myocardial infarction. SURGICAL HISTORY : Coronary artery stent. ENCOUNTER: Initial ACUITY: 1 day PAIN SCORE: 7/10 LOCATION: Chest FINDINGS: A single view of the chest demonstrates the lungs to be symmetrically aerated without evidence of mas s, infiltrate or effusion. The cardiomediastinal contours are unremarkable. Osseous structures are intact. CONCLUSION: No acute disease. Rambo Mehta MD on August 01, 2016 at 7:43 Board Certified Radiologist. This report was verified electronically.
[2016-08-01 07:48] LABS: ALKALINE PHOSPHATASE 71 U/L (45-117); TOTAL BILIRUBIN ADULT 0.3 MG/DL (0.2-1.0)
[2016-08-01 07:49] LABS: CREATINE KINASE 77 U/L (39-308)
[2016-08-01] MEDS ORDERED: NITR1SUB3 SL (11:25)
--- NOTE | 2016-08-01 11:33 | EKG ---
Date Performed: 08/01/2016 Time Performed: 10:16:12 PTAGE: 70 years EKG: Sinus rhythm WITH FIRST DEGREE AV BLOCK ABNORMAL ECG PREVIOUS TRACING : 08/01/2016 07.04 DOCTOR: Esteban Akers Interpretating Date/Time 08/01/2016 11:31:23
--- NOTE | 2016-08-01 11:36 | EKG ---
Date Performed: 08/01/2016 Time Performed: 07:04:09 PTAGE: 70 years EKG: Sinus rhythm WITH FIRST DEGREE AV BLOCK NONSPECIFIC T-WAVE ABNORMALITY ABNORMAL ECG PREVIOUS TRACING : 07/27/2016 15.01 DOCTOR: Esteban Akers Interpretating Date/Time 08/01/2016 11:32:11
== END 2016-08-01 11:35 | disposition home or self-care (01) ==
LOC: NEPE 06:54
DX: R07.9 Chest pain, unspecified (principal); J45.909 Unspecified asthma, uncomplicated; E78.00 Pure hypercholesterolemia, unspecified; K21.9 Gastro-esophageal reflux disease without esophagitis; I10 Essential (primary) hypertension; Z72.0 Tobacco use; R94.31 Abnormal electrocardiogram [ECG] [EKG]
CPT/HCPCS: 71010; 80053; 82550; 83690; 83735; 83880; 84484; 85025; 85610; 85730; 93005

== ENCOUNTER 2017-06-28 11:05 | Day surgery (SDC) | payer MEDICARE, BC ==
[~2017-06-28] VITALS: Ht 167.6 cm; Wt 74.0 kg
[~2017-06-28 11:05] MED LIST changes: +COLE625 PO; +IBUP1TAB5 PO; -IBUP400T20 PO; -LISI10TA3 PO; +NITR1SUB3 SL; -NORC5TAB PO; -WELC625T2 PO
[2017-06-28] MEDS ORDERED: IOHEXOL 350 MG/ML 100 ML BTL (for Cath Lab) OTHER ONE (11:06)
[2017-06-28] MEDS ORDERED: IOHEXOL 350 MG/ML 50 ML BTL (for Cath Lab) OTHER ONE (11:06)
[2017-06-28 11:30] VITALS: BP 124/80; PULSE 83; RESP 17; O2SAT 97
[2017-06-28] MEDS ORDERED: ECASA81 PO (11:56)
[2017-06-28 12:01] LABS: AUTOMATED NEUTROPHIL # 3.2 TH/MM3 (1.8-7.7); BASOPHIL % 0.8 % (0.0-2.0); EOSINOPHIL # 0.4 TH/MM3 (0-0.4); EOSINOPHIL % 6.6 % (0.0-4.0); HEMOGLOBIN 15.5 GM/DL (13.0-17.0); LYMPH % 23.8 % (9.0-44.0); LYMPHOCYTE # 1.3 TH/MM3 (1.0-4.8); MEAN CELL VOLUME 87.3 FL (80.0-100.0); MEAN CORPUSCULAR HGB CONC 34.4 % (32.0-36.0); MEAN PLATELET VOLUME 9.5 FL (7.0-11.0); MONO % 10.8 % (0.0-8.0); MONOCYTE # 0.6 TH/MM3 (0-0.9); PLATELET COUNT 128 TH/MM3 (150-450); RED BLOOD COUNT 5.16 MIL/MM3 (4.50-5.90); RED CELL DISTRIBUTION WIDTH 14.2 % (11.6-17.2); WHITE BLOOD COUNT 5.5 TH/MM3 (4.0-11.0)
[2017-06-28 12:12] LABS: PROTHROMBIN TIME - PATIENT 10.4 SEC (9.8-11.6)
[2017-06-28] MEDS ORDERED: ALIR1INJ SQ (12:15)
[2017-06-28] MEDS ORDERED: AMLO10CA PO (12:15)
[2017-06-28] MEDS ORDERED: NEXI40CA PO (12:15)
[2017-06-28] MEDS ORDERED: ZOLO50TA PO (12:15)
[2017-06-28] MEDS ORDERED: SUCR1TAB PO (12:15)
[2017-06-28] MEDS ORDERED: FLUT50SP EACH NARE (12:15)
[2017-06-28 12:30] LABS: BICARBONATE 26.5 MEQ/L (21.0-32.0); CALCIUM 8.9 MG/DL (8.5-10.1); CREATININE 1.1 MG/DL (0.60-1.30)
[2017-06-28] MEDS ORDERED: ASPIRIN 325 MG TAB PO SCH (12:30)
[2017-06-28] MEDS ORDERED: NS 1000P @30 MLS/HR (KVO) IV SCH (12:30)
[2017-06-28] MEDS ORDERED: HEPARIN-NS/PF FLUSH BAG 2,000 ML IV FLUSH ONE (13:18)
[2017-06-28] MEDS ORDERED: MIDAZOLAM HCL 2 MG/2 ML VIAL ONE (13:18)
[2017-06-28] MEDS ORDERED: HEPARIN SODIUM - IV 10,000 UNITS/10 ML VIAL ONE (15:05)
--- NOTE | 2017-06-28 16:25 | CATHPROC ---
7-bites HIS Report Study Information Study Number Admission Scheduled Start Study Start [id number] Jun 28 2017 11:05AM 06/28/2017 Jun 28 2017 1:16PM [place] Service Cardiac Catheterization Admit Source Facility Department Other [facility] - [facility] Physician and Clinical Staff Initial MD Gaxiola, Dawit Employee Benefits Manager Antwon Griffith,MORELIA Other Sheela Doe BSN Recorder Karen Fernandez,CAREER AGENT TECH2 Scrub Gulshan Ayala,RT(R) Procedures Performed Procedure Location (Site) Vessel Name Coronary Angiograms LCA Left Coronary Coronary Angiograms RCA Right Coronary Wire insertion Fem Art (right) Femoral Art Equipment Time Cell Tester Description Size Mfg Part Number Used/Scraped STARCLOSE, VASCULAR CLOSER [id number] 15:37 [employer] FR 6 Used SYSTEM *[id number] 14:20 MCKOY DING SWAN SIOMARA CATHETER FR 7 Used *[id number] TRANSDUCER, TRUWAVE [id number] 14:20 MCKOY DING * Used W/STOCKCOCK *[id number] TRANSDUCER, TRUWAVE [id number] 14:20 MCKOY DING * Used W/STOCKCOCK *[id number] 534-645T *[id number] 534-620T *3043750 534-617T *[id number] 534-621T *[id number] PIGTAIL ANG. 145 INFINITI 534-652S CATHETER *[id number] WIRE, STRT MOVEABLE CORE 502-581 .035 *[id number] 14:20 MEDLINE INDUSTRIES PACK, CCL CUSTOM * Used *[id number] [id number] 13:34 MEDLINE PACER PEN, SKIN DUAL W/ RULER * Used *[id number] [id number] 14:20 MEDLINE PACER PEN, SKIN DUAL W/ RULER * Used *[id number] 13:34 MeterHero MEDICAL SHEATH, FR6.5 PRELUDE 11CM FR 6.5 038ACT Used *2806862 [id number] 14:20 MERIT MEDICAL WIRE, 3MMJ .035 180CM 180CM Used *[id number] 15:18 MERIT MEDICAL WIRE, EXCHANGE 260CM 3MMJ 260CM Used *[id number] 14:20 NAMIC MANIFOLD, 2 PORT * Used *[id number] 14:20 NAMIC MANIFOLD, 4 PORT * Used *3725954 13:34 NYCOMED OMNIPAQUE, 350 MG, 150ML 150ML [id number] Used 14:20 NYCOMED OMNIPAQUE, 350 MG, 150ML 150ML [id number] Used [id number] 14:20 HAILE MEDICAL BLANKET,WARM AIR CCL * Used *[id number] [id number] 13:34 HAILE MEDICAL BLANKET,WARM AIR CCL * Used *4255217 [id number] 14:20 TERUMO MEDICAL SHEATH, FR7 TERUMO (10CM) FR 7 Used *[id number] 15:21 VASCULAR SOLUTIONS PIGTAIL DUAL LUMEN CATHETER FR 6 5555 *[id number] Used History: Current Medications Medication Dosage/Unit Route Frequency Last Date/Time Taken EFFIENT VITAMIN D FISH OIL Albuterol NTG SL ASA Nexium NORVASC Zoloft History: Risk Factors Family History of Hypertension Dyslipidemia Previous TX Previous Heart Failure Premature CAD Yes Yes Yes No No Prior Valve Prior PCI Prior PCIDate Prior CABG Surgery No Yes 07/25/2016 No Cerebrovascular Peripheral Artery Chronic Lung On Dialysis Diabetes Disease Disease Disease No No No No No History: Stress Tests Stress or Imaging Studies Performed Yes Standard Exercise Stress Test No Stress Echo No Stress Test SPECT Stress Test SPECT Result Stress Test SPECT Ischemia Risk/Extent Yes Positive High Stress Test CMR No Cardiac CTA Coronary Calcium Score No No Labs Hgb (g/dl) Hct (%) RBC (MIL/MM3) WBC (l/cumm) Platelets (thousands) 11.60-17.00 35.00-51.00 4.00-5.90 4.00-11.00 150.00-450.00 15.5 45 5.1 5.5 128 Glucose (mg/dl) BUN (mg/dl) Creatinine (mg/dl) BUN:Creatinine (1:x) 74.00-106.00 7.00-18.00 0.50-1.30 10.00-20.00 90 23 1.1 20.9 Na (meq/l) K (meq/l) Cl (meq/l) CO2 (mmol/L) Ca (mg/dl) 136.00-145.00 3.50-5.10 98.00-107.00 21.00-32.00 8.50-10.10 141 4.2 107 26.5 8.9 PT (sec) PTT (sec) INR (PTT:PT) 9.80-11.60 24.30-30.10 0.90-1.10 10.4 24.4 1 CPK-MB (ng/ML) 0.50-3.60 Not Drawn Medication Medication Total Dose (Bolus/Oral) Medication Total Dosage/Unit 1% XYLOCAINE 20 mL FENTANYL 25 mcg HEPARIN 2000 units NTG (IC) 300 mcg VERSED 1 mg Medications (Bolus/Oral) Medication Time Given Dosage/Unit Administered By Reason 1% XYLOCAINE 06/28/2017 2:20:53 PM 20 mL Dawit Gaxiola 20 mL 1% XYLOCAINE given in lab by Dawit Gaxiola in Right Groin via Subcutaneous. VERSED 06/28/2017 2:43:04 PM 1 mg Antwon Griffith 1 mg VERSED given in lab by Antwon Griffith RN in Left Hand via Peripheral IV. Ordered by Berry Gaxiola FENTANYL 06/28/2017 2:43:12 PM 25 mcg Antwon Griffith 25 mcg FENTANYL given in lab by Antwon Griffith RN in Left Hand via Peripheral IV. Ordered by Dawit Gaxiola. NTG (IC) 06/28/2017 2:54:47 PM 150 mcg Dawit Gaxiola 150 mcg NTG (IC) given in lab by Dawit Gaxiola via Intra-coronary to the LCA. Ordered by Berry Gaxiola. NTG (IC) 06/28/2017 3:02:51 PM 150 mcg Dawit Gaxiola 150 mcg NTG (IC) given in lab by Dawit Gaxiola via Intra-coronary to RCA. Ordered by Dawit Gaxiola. HEPARIN 06/28/2017 3:15:52 PM 2000 units Antwon Griffith 2000 units HEPARIN given in lab by Antwon Griffith RN in Left Hand via Peripheral IV. Ordered by Dawit Archer. Medication (Drip) Medication Time Given Dosage/Unit Concentration/Unit Diluent (ml) Solutio n IV Solutions 06/28/2017 1:16:46 PM 0 mL (IV) 500 NaCl .9 Patient arrived on IV Solutions in Left Wrist via Peripheral IV. Pump/Drip Flow = 20 ml/hr using NaCl .9. Initial Case Assessment Cardiovascular HR Rhythm NIBP Chest Pain 76 sr 130/74 0 Circulatory - Right Pulses Dorsalis Pedis Femoral 2 2 Scale (0,1,2,3,4,d) Circulatory - Left Pulses Dorsalis Pedis Femoral 1 2 Scale (0,1,2,3,4,d) Neurological State Oriented to time-place- Alert Moves all extremities person Respiration - General Respiration Rate SpO2 (%) (B/min) 16 98 Chronological Log Time Study Chronological Log 13:10:26 Patient arrived via Bed. 13:10:32 Patient Name, D.O.B, / Armband Verified By R.N. 13:16:37 Consent signed by the physician and the patient and verified by the [facility] staff. 13:16:37 Pre-op and post- op instructions given; patient acknowledges understanding of instructions. 13:16:38 Verbal Stimulation=2 Physical Stimulation=2 Airway=2 Respiration=2 TOTAL=8. (0=absent, 1=li mited, 2=present) 13:16:39 Presedation assessment performed by [facility] RN. 13:16:42 Patient has been NPO for More than 6Hrs. 13:16:42 Skin Breakdown-none 13:16:43 Tatyana Prominences Protected 13:16:45 A # 20 IV was noted in the Wrist (left). Grade = patent 13:16:46 Patient arrived on IV Solutions in Left Wrist via Peripheral IV. Pump/Drip Flow = 20 ml/hr using NaCl .9. 13:16:48 History and physical on the chart or being dictated. Vitals capture started with the following parameters, Patient=Adult, Interval=5 min, Initial Pr wcjvui=125 mmHg, 13:17:31 Deflation Rate=5 mmHg, Cuff placed on Right Ankle 13:18:11 HR=76 bpm, VRUB=365/74 mmhg, SpO2=96.0 %, Resp=9 B/min, Pain=0, Cornejo=2 13:19:00 Reference ECG taken Assessment: Initial Case, HR=76 BPM, Rhythm=sr, FUWT=326/74 mmhg, Chest Pain=0 Right Pulses: Royce Ped=2, Femoral=2 13:19:12 Left Pulses: Royce Ped=1, Femoral=2 Neurological: State=Alert, Ox3, GRANDA Respiration: Resp=16 B/min, SpO2=98 % 13:20:05 HR=81 bpm, NWPR=603/82 mmhg, SpO2=98.0 %, Resp=8 B/min 13:22:04 HR=78 bpm, BQJM=659/75 mmhg, SpO2=97.0 %, Resp=21 B/min 13:24:05 HR=78 bpm, NAGP=495/73 mmhg, SpO2=97.0 %, Resp=19 B/min 13:25:37 Bilateral groins prepped with 2% chlorhexidine, and draped after a 3 minute waiting time. 13:26:36 HR=79 bpm, RFMP=211/79 mmhg, SpO2=98.0 %, Resp=8 B/min 13:28:05 HR=79 bpm, WQKL=414/77 mmhg, SpO2=98.0 %, Resp=10 B/min 13:28:20 paged 13:30:07 HR=78 bpm, GBEI=737/77 mmhg, SpO2=97.0 %, Resp=11 B/min 13:30:44 Pressure channel 1 zeroed. 13:32:06 HR=76 bpm, UAXB=857/75 mmhg, SpO2=98.0 %, Resp=13 B/min 13:32:08 MD responded, will be 20 min late 13:34:11 HR=82 bpm, KSII=385/59 mmhg, SpO2=97.0 %, Resp=15 B/min 13:36:04 HR=79 bpm, VEVQ=828/78 mmhg, SpO2=93.0 %, Resp=10 B/min 13:38:07 HR=78 bpm, MEYM=376/83 mmhg, SpO2=95.0 %, Resp=14 B/min 13:40:05 HR=85 bpm, LXKR=528/84 mmhg, SpO2=97.0 %, Resp=9 B/min 13:42:51 HR=83 bpm, WNJU=412/64 mmhg, SpO2=96.0 %, Resp=20 B/min 13:44:36 HR=82 bpm, DFOT=439/81 mmhg, SpO2=97.0 %, Resp=15 B/min 13:46:08 HR=81 bpm, NDVS=295/83 mmhg, SpO2=97.0 %, Resp=16 B/min 13:49:00 HR=80 bpm, GRBL=186/76 mmhg, SpO2=97.0 %, Resp=12 B/min 13:50:08 HR=78 bpm, SJPU=582/79 mmhg, SpO2=96.0 %, Resp=20 B/min 13:52:08 HR=80 bpm, QEWL=524/76 mmhg, SpO2=97 %, Resp=11 B/min 13:54:09 HR=77 bpm, XPMV=253/77 mmhg, SpO2=97 %, Resp=21 B/min 13:56:12 HR=80 bpm, KQWC=765/76 mmhg, SpO2=97.0 %, Resp=11 B/min 13:58:09 HR=82 bpm, QRFE=126/87 mmhg, SpO2=97.0 %, Resp=8 B/min 14:00:10 HR=79 bpm, GXGC=362/79 mmhg, SpO2=97.0 %, Resp=15 B/min 14:03:30 HR=84 bpm, TUDN=474/63 mmhg, SpO2=94.0 %, Resp=43 B/min 14:05:17 HR=81 bpm, QQNF=230/82 mmhg, SpO2=95.0 %, Resp=15 B/min 14:06:20 HR=80 bpm, REYN=001/79 mmhg, SpO2=94.0 %, Resp=22 B/min 14:08:13 HR=87 bpm, WVFJ=426/85 mmhg, SpO2=97.0 %, Resp=12 B/min 14:10:14 HR=88 bpm, HAVL=490/93 mmhg, SpO2=92.0 %, Resp=17 B/min 14:12:13 HR=79 bpm, MIDF=768/74 mmhg, SpO2=93.0 %, Resp=16 B/min 14:12:57 MD arrived. 14:14:14 HR=79 bpm, XFAV=489/77 mmhg, SpO2=93 %, Resp=10 B/min 14:16:14 HR=87 bpm, MNDP=673/78 mmhg, SpO2=95.0 %, Resp=18 B/min Time Out. Correct patient, correct procedure, correct physician, power injector loaded with con trast with surgical team 14:17:17 present. Time Out Concurred by MD and individual staff in procedure. 14:18:15 HR=82 bpm, RWGZ=986/78 mmhg, SpO2=95.0 %, Resp=32 B/min 14:20:14 HR=82 bpm, NZTI=570/82 mmhg, SpO2=96.0 %, Resp=12 B/min 14:20:51 Case Start 14:20:53 20 mL 1% XYLOCAINE given in lab by Dawit Gaxiola in Right Groin via Subcutaneous. 14:22:17 HR=80 bpm, EADI=649/73 mmhg, SpO2=93.0 %, Resp=14 B/min 14:22:50 Access site was Right Femoral Vein. 14:23:01 A SHEATH, FR7 TERUMO (10CM) FR 7 was advanced into the Fem Vein (right) using the Cutdown t echnique. 14:24:16 HR=80 bpm, IMES=134/78 mmhg, SpO2=92.0 %, Resp=18 B/min 14:24:35 Access site was Right Femoral Artery. 14:25:19 A SHEATH, FR6.5 PRELUDE 11CM FR 6.5 was advanced into the Fem Art (right) using the Percuta neous technique. 14:26:17 HR=81 bpm, WDSE=844/79 mmhg, SpO2=91.0 %, Resp=25 B/min 14:26:45 A SWAN SIOMARA CATHETER FR 7 was inserted via Fem Vein (right) 14:27:22 Pressure channel 2 zeroed. 14:28:15 HR=83 bpm, FUJD=434/76 mmhg, SpO2=95.0 %, Resp=18 B/min 14:28:55 Saturation: Site=IVC (Inferior Vena Cava) , O2=83.6 %, Hgb=15.5 gm/dl, Condition=Condition 1. Used in calculation. Recorded Pressure: RA, HR=82, Condition=Condition 1 14:29:37 (Right Atrium) RA 14:29:46 Saturation: Site=Rosalinda (Mid Right Atrium) , O2=82.9 %, Hgb=15.5 gm/dl, Condition=Condition 1. Used in calculation. Recorded Pressure: RV, HR=83, Condition=Condition 1 14:30:09 (Right Ventricle) RV 14:30:14 HR=82 bpm, QBAR=567/81 mmhg, SpO2=95.0 %, Resp=20 B/min Recorded Pressure: MPA, HR=84, Condition=Condition 1 14:30:59 (Main Pulmonary Artery) MPA 18/11/14 14:32:15 HR=83 bpm, HKND=252/76 mmhg, SpO2=94.0 %, Resp=12 B/min 14:32:16 Saturation: Site=PA (Pulmonary Artery) , O2=80.8 %, Hgb=15.5 gm/dl, Condition=Condition 1. Used in calculation. 14:32:58 Saturation: Site=Ao (Aorta) , O2=97.2 %, Hgb=15.5 gm/dl, Condition=Condition 1. Used in deepti culation. Recorded Pressure: PCW, HR=83, Condition=Condition 1 14:33:55 (Pulmonary Capillary Wedge) PCW 14:34:18 HR=83 bpm, YMJG=290/78 mmhg, SpO2=93.0 %, Resp=14 B/min 14:36:15 HR=84 bpm, HTEN=270/81 mmhg, SpO2=92.0 %, Resp=20 B/min 14:38:18 HR=84 bpm, QFSF=442/76 mmhg, SpO2=93.0 %, Resp=22 B/min 14:40:16 HR=84 bpm, RDFF=521/76 mmhg, SpO2=95.0 %, Resp=11 B/min 14:42:19 HR=82 bpm, DFQJ=284/73 mmhg, SpO2=93.0 %, Resp=8 B/min Thermo CO: CO=5.5 l/m, HR=80 bpm, Condition=Condition 1. Used in calculation. 14:42:22 Equipment: Description and Size=SWAN SIOMARA CATHETER FR 7, Type=Bath Probe, CC=0.579 Injectant: Temp=19.0 - 22.0 Celsius, Volume=10.0 ml 14:43:04 1 mg VERSED given in lab by Antwon Griffith RN in Left Hand via Peripheral IV. Ordered by Dawit Rogers. 14:43:12 25 mcg FENTANYL given in lab by Antwon Griffith RN in Left Hand via Peripheral IV. Ordered by Dawit Gaxiola. 14:44:18 HR=80 bpm, USFQ=704/79 mmhg, SpO2=95.0 %, Resp=10 B/min 14:46:19 HR=82 bpm, CAMO=217/68 mmhg, SpO2=92.0 %, Resp=11 B/min Thermo CO: CO=5.1 l/m, HR=80 bpm, Condition=Condition 1. Used in calculation. 14:47:44 Equipment: Description and Size=SWAN SIOMARA CATHETER FR 7, Type=Bath Probe, CC=0.579 Injectant: Temp=19.0 - 22.0 Celsius, Volume=10.0 ml 14:48:18 HR=82 bpm, DRPH=639/71 mmhg, SpO2=94.0 %, Resp=14 B/min Thermo CO: CO=5.1 l/m, HR=80 bpm, Condition=Condition 1. Used in calculation. 14:48:37 Equipment: Description and Size=SWAN SIOMARA CATHETER FR 7, Type=Bath Probe, CC=0.579 Injectant: Temp=19.0 - 22.0 Celsius, Volume=10.0 ml 14:50:21 HR=81 bpm, TVDW=747/69 mmhg, SpO2=92 %, Resp=10 B/min 14:50:33 [place] Siomara Catheter Removed A JL 4.0 INFINITI CATHETER FR 6 was advanced over a wire. OMNIPAQUE, 350 MG, 150ML 150ML was us ed for 14:51:13 injections. 14:52:19 HR=79 bpm, OWYC=595/71 mmhg, SpO2=90.0 %, Resp=15 B/min Recorded Pressure: Ao, HR=79, Condition=Condition 1 14:52:21 (Aorta) Ao 108/59/79 14:54:18 HR=78 bpm, NSOH=303/72 mmhg, SpO2=92.0 %, Resp=9 B/min 14:54:47 150 mcg NTG (IC) given in lab by Dawit Gaxiola via Intra-coronary to the LCA. Ordered by Dawit Rogers. 14:56:19 HR=87 bpm, CXRR=955/71 mmhg, SpO2=91.0 %, Resp=21 B/min 14:56:40 The LCA was injected and visualized at various angles. OMNIPAQUE, 350 MG, 150ML 150ML used . 14:58:16 HR=88 bpm, TVES=669/70 mmhg, SpO2=95.0 %, Resp=12 B/min 15:00:19 HR=92 bpm, GJCT=696/74 mmhg, SpO2=96.0 %, Resp=8 B/min After removing the current catheter a JR 4.0 INFINITI CATHETER FR 6 was advanced over a WIRE, 3 MMJ .035 180CM 15:00:45 180CM. 15:02:19 HR=88 bpm, OODM=017/67 mmhg, SpO2=91.0 %, Resp=13 B/min 15:02:19 The RCA was injected and visualized at various angles. OMNIPAQUE, 350 MG, 150ML 150ML used . 15:02:51 150 mcg NTG (IC) given in lab by Dawit Gaxiola via Intra-coronary to RCA. Ordered by Dawit Manning. 15:03:53 The RCA was injected and visualized at various angles. OMNIPAQUE, 350 MG, 150ML 150ML used . 15:04:03 Catheter was removed 15:04:20 HR=90 bpm, NXIL=139/61 mmhg, SpO2=93.0 %, Resp=12 B/min A JL 4.5 INFINITI CATHETER FR 6 was advanced over a wire. OMNIPAQUE, 350 MG, 150ML 150ML was us ed for 15:05:19 injections. 15:06:19 HR=85 bpm, XXXG=233/72 mmhg, SpO2=90.0 %, Resp=16 B/min 15:06:38 The LCA was injected and visualized at various angles. OMNIPAQUE, 350 MG, 150ML 150ML used . 15:08:05 Catheter was removed 15:08:18 HR=93 bpm, NGWG=541/81 mmhg, SpO2=92.0 %, Resp=25 B/min 15:10:21 HR=88 bpm, UNAW=267/72 mmhg, SpO2=95.0 %, Resp=14 B/min A AL 1 INFINITI CATHETER FR 6 was advanced over a wire. OMNIPAQUE, 350 MG, 150ML 150ML was used for 15:12:09 injections. 15:12:17 HR=87 bpm, IREJ=661/73 mmhg, SpO2=93.0 %, Resp=17 B/min 15:14:22 HR=85 bpm, BBQE=937/68 mmhg, SpO2=91.0 %, Resp=7 B/min 15:15:52 2000 units HEPARIN given in lab by Antwon Griffith, RN in Left Hand via Peripheral IV. Order ed by Dawit Gaxiola. 15:16:04 A WIRE, STRT MOVEABLE CORE .035 * was inserted via Fem Art (right). 15:16:19 HR=85 bpm, EMMD=718/69 mmhg, SpO2=92.0 %, Resp=13 B/min 15:17:35 AL1 advanced across the aortaic valve. 15:17:58 The previous wire was exchanged for a WIRE, EXCHANGE 260CM 3MMJ 260CM. Recorded Pressure: LV, HR=84, Condition=Condition 1 15:18:09 (Left Ventricle) LV 129/-8/7 15:18:22 HR=83 bpm, AWHR=080/66 mmhg, SpO2=95.0 %, Resp=15 B/min After removing the current catheter a PIGTAIL DUAL LUMEN CATHETER FR 6 was advanced over a WIRE , EXCHANGE 15:20:14 260CM 3MMJ 260CM. 15:20:15 HR=84 bpm, NIBP=97/67 mmhg, SpO2=94.0 %, Resp=21 B/min 15:22:15 HR=88 bpm, YFVV=183/68 mmhg, SpO2=94.0 %, Resp=20 B/min Recorded Pressure: LV, Ao, HR=83, Condition=Condition 1 15:22:27 (Left Ventricle) LV 136/-13/8, (Aorta) Ao 104/58/78 Recorded Pressure: LV, Ao, HR=84, Condition=Condition 1 15:24:15 (Left Ventricle) LV 140/-13/6, (Aorta) Ao 108/63/84 15:24:20 HR=84 bpm, YRYZ=596/74 mmhg, SpO2=92.0 %, Resp=15 B/min 15:26:20 Catheter was removed 15:26:21 HR=84 bpm, TONY=352/67 mmhg, SpO2=95.0 %, Resp=24 B/min 15:28:22 HR=82 bpm, SZFM=398/67 mmhg, SpO2=95.0 %, Resp=7 B/min 15:30:[address] Giles for CV surgery 15:30:19 HR=86 bpm, DHXB=312/73 mmhg, SpO2=92.0 %, Resp=19 B/min 15:32:20 HR=87 bpm, ZIJR=319/77 mmhg, SpO2=95.0 %, Resp=9 B/min 15:34:18 HR=88 bpm, JQYP=680/83 mmhg, SpO2=93.0 %, Resp=15 B/min 15:36:21 HR=86 bpm, ULMA=556/87 mmhg, SpO2=96.0 %, Resp=13 B/min 15:38:20 HR=84 bpm, YFVS=357/78 mmhg, SpO2=94.0 %, Resp=9 B/min 15:39:09 An injection in the Fem Art (right) was made through the SHEATH, FR6.5 PRELUDE 11CM FR 6.5. 15:39:55 STARCLOSE, VASCULAR CLOSER SYSTEM FR 6 placement in the Fem Art (right) 15:40:21 HR=84 bpm, VQEZ=446/78 mmhg, SpO2=93.0 %, Resp=16 B/min 15:42:22 HR=86 bpm, MDOY=279/79 mmhg, SpO2=96.0 %, Resp=13 B/min 15:42:22 7fr Venous Sheath removed; pressure applied to access site. 15:42:32 Case End 15:44:23 HR=85 bpm, HSVV=093/78 mmhg, SpO2=94.0 %, Resp=13 B/min 15:46:26 HR=86 bpm, LMRX=788/72 mmhg, SpO2=95.0 %, Resp=14 B/min 15:48:24 HR=85 bpm, LFNA=065/79 mmhg, SpO2=96.0 %, Resp=14 B/min 15:51:00 HR=92 bpm, QIRC=703/71 mmhg, SpO2=96.0 %, Resp=18 B/min 15:52:28 HR=84 bpm, TPKL=230/72 mmhg, SpO2=96.0 %, Resp=13 B/min 15:54:10 Vitals capture stopped. 15:55:17 Sterile dressing applied to site 15:58:41 Patient moved to bed 15:59:07 Patient transported to DOCU. 16:02:02 A Left and Right Heart Cath was performed. End Study - Contrast Media Used In Study Contrast Total Opened (mL) Total Used (mL) Total Wasted (mL) Omnipaque 130 130 0 End Study - Maximum Contrast Load Max Contrast Load (mL) 336.4 End Study - Radiation Exposure Fluoro Time (minutes) 6.8 End Study - Sheaths Sheaths Pulled By Sheath Hold Time (min) Gulshan Ayala 10 End Study - Patient Disposition Complications Transferred To Interventional Outcome No Telemetry Bed No attempt made
[2017-06-28] MEDS ORDERED: ACETAMINOPHEN 500 MG CPLT PO PRN (16:30)
[2017-06-28] MEDS ORDERED: SODIUM CHLOR 0.9% 250 ML INJ 250 ML IV PRN (16:30)
[2017-06-28] MEDS ORDERED: MISC INFORMATION XX ONE (16:30)
[2017-06-28] MEDS ORDERED: SODIUM CHLORIDE 0.9% FLUSH 10 ML FLUSH IV FLUSH PRN (16:30)
[2017-06-28] MEDS ORDERED: ATROPINE SULFATE 1 MG/ML VIAL IV PUSH PRN (16:30)
[2017-06-28] MEDS ORDERED: ONDANSETRON HCL 4 MG/2 ML VIAL IV PUSH PRN (16:30)
[2017-06-28] MEDS ORDERED: BACITRACIN OINT 0.9 GM PKT TOP ONE (16:30)
[2017-06-28] MEDS ORDERED: TOPR25TA PO (16:55)
[2017-06-28] MEDS ORDERED: ISOS30TA3 PO (16:56)
[2017-06-28] MEDS ORDERED: SODIUM CHLOR 0.9% 1000 ML INJ 1,000 ML IV SCH (18:00)
[2017-06-28] MEDS ORDERED: METOPROLOL SUCCINATE 25 MG EXTENDED RELEASE TAB PO ONE (18:30)
--- NOTE | 2017-06-29 08:24 | MA ---
cc: Dawit Gaxiola MD DATE: 06/28/2017 PROCEDURES: 1. Right heart catheterization. 2. Left heart catheterization. 3. Coronary arteriogram. 4. Right femoral arteriogram. 5. Right femoral arteriotomy site closure using a StarClose device. 6. Sedation using Versed and fentanyl. HOTEL SERVICE MANAGER: Dawit Sanz MD, LUMBER PULLER: Gulshan Beyer RT. INDICATIONS: Presentation with occasional chest discomfort and a stress nuclear study with high risk criteria of EKG changes showing early ST segment depression in ____ and persistent 7 minutes into recovery. EQUIPMENT USED: Two 6-Belizean short sheaths in the right femoral artery. A 7-Belizean short sheath in the right femoral vein. A 7-Belizean Gary-Leonie catheter. A 6-Belizean JL4 exchanged for a JL 4.5 because of a big aortic root to cannulate better the left main. A 6-Belizean JR4 and a dual-lumen Sergio pigtail catheter. A 0.035 long exchange J wire. A 0.035 straight wire with a movable core used to cross the aortic valve. A 6-Belizean AL1 catheter to cross the aortic valve. DESCRIPTION OF PROCEDURE: After obtaining informed consent, the right groin was prepped in the usual sterile fashion. A 50 mL of 1% lidocaine was used for local anesthesia. Using a modified Seldinger technique, the right femoral vein was accessed and a 7-Belizean short sheath was inserted into the right femoral vein over a 0.035 J wire. Using the same technique, the right femoral artery was accessed and a 6-Belizean short sheath was inserted over a 0.035 J wire. A Gary-Leonie catheter was then advanced and O2 sats were obtained from the IVC, mid RA, PA and also from the FA for Susan calculations. Hemodynamic pressure measurements were obtained in the RA/RV/PA and wedge position. The Gary-Leonie catheter was then removed. A JL 4.0 diagnostic catheter was initially used; however, it did not cannulate the left main as well. There was dampening of pressure upon cannulation of the left main, even after injecting nitroglycerin (150 mcg); then the Leticia right 4.0 6-Belizean diagnostic catheter was used to cannulate the right coronary artery. There was dampening of pressure upon cannulation. Coronary arteriograms of the RCA were then performed. Then, we chose an FL 4.5 diagnostic 6-Belizean catheter. Thus 2 injections of the left coronary system again and it did cannulate adequately. Selective coronary arteriograms were then performed of the left system. Then, this was followed by crossing the aortic valve using an AL1 6-Belizean diagnostic catheter with the help of a straight wire with a movable core. The AL1 was then advanced into the LV cavity and then was exchanged using a long exchange 0.035 J wire with a Sergio dual lumen diagnostic catheter which was used to obtain hemodynamic pressure measurements from the LV cavity/ascending aorta simultaneously to be used for calculation of the aortic valve and aortic valve area index. This was then withdrawn. He has known normal LV systolic function and no significant other valve pathology by echocardiogram. LV gram was not performed. At the end of procedure, the right femoral system was injected revealing no significant disease. A StarClose device was applied achieving adequate hemostasis. The venous sheath was then removed and adequate hemostasis was achieved by manual compression. The patient tolerated the procedure well without acute complication at the time of dictation. Upon cannulation of the left main artery, he had transient pain between the shoulders; however, this resolved on its own. CARDIAC CATHETERIZATION FINDINGS: HEMODYNAMICS: Right heart pressure showed RA with an A-wave of 6, a V-wave of 4 and a mean of 3 mmHg. RV was 26/1 mmHg with an RVEDP of 7 mmHg. PA pressure was 25/8 mmHg. Wedge pressure showed an A-wave of 11 and a V-wave of 9 with a mean of 7 mmHg. Aortic pressure was 108/63 mmHg with a mean of 78 mmHg. LV pressure was 140/0 mmHg with an LVEDP of 6 mmHg. O2 SATS: Right FA sat was 97.2%. IVC sat was 83.6%. RA sat was 82.9% with a PA sat of 81%. Calculated cardiac output by Susan calculation was 6.6 liters per minute with a cardiac index of 3.6 liters per minute per m2. Cardiac output by thermodilution was 5.2 liters per minute with a cardiac index of 2.9 liters per minute per m2. PVR by Susan calculation was 96.7 Dynes and by thermodilution was 122.3 Dynes. SVR by Susan calculation was 979.3 Dynes and by thermodilution was 123.8 Dynes. Mean aortic valve gradient was 25.6 mmHg with a valve area by thermodilution of 1.04 cm2 with a valve area index of 0.57 cm2 /m2. By Susan calculation aortic valve area was 1.3 cm2 with a valve area index of 0.72 cm2/m2. CORONARIES: The left main artery arose from left sinus of Valsalva.. There was heavy calcification of the left main and the left anterior descending artery as well. The ostium of the left main had a 40%-50% calcified disease with dampening of pressure upon cannulation. The distal left main had an eccentric chunk of calcium, was seen best in the HAYWARD and AP caudal views, which occupied about 70%-80% of the distal left main. Ramus intermediate artery branch of the left main artery had an ostial 30% and a mid 30%-40% calcified disease. Left circumflex artery was a relatively small caliber vessel. It gave a mid OM branch that had mild diffuse luminal irregularities, ranging between 30%-40%. It gave an atrial branch from the mid portion that had mild irregularities of less than 20%. Left anterior descending artery branched from the left main artery. This had diffuse proximal to mid calcification ranging between 30%-40%. The LAD extended distally to wrap around the apex with minor luminal irregularities of less than 10%. The first diagonal branch was small in caliber, had diffuse luminal irregularities of less than 30%. Second diagonal branch had proximal 30% disease. Multiple septal branches with mild luminal irregularities of less than 20%. Other smaller diagonal branches also had mild luminal irregularities of less than 20%. Right coronary artery arose from right sinus of Valsalva. There was dampening of pressure upon cannulation despite giving nitroglycerin intracoronary (150 mcg). There was 50%-60% proximal disease followed by 80%-90% in-stent restenosis of the proximal RCA stent. The RCA was a big dominant vessel. Distally it gave a big PLV branch with mild luminal irregularities of less than 20%. PDA had a mid 30% disease. There was a jailed RV branch from the proximal RCA stent that was widely patent. CONCLUSIONS: 1. Moderate to severe aortic valve stenosis, thickened and calcified. 2. Between moderate to severe aortic valve stenosis, thickened and calcified (aortic valve area index of 0.57 by thermodilution and 0.72 by Susan calculation cm2/m2). 3. Mild to moderate proximal calcified disease of the left anterior descending. 4. Mild left circumflex and ramus intermediate artery disease. 5. Significant in-stent restenosis of the proximal right coronary artery (dominant right coronary artery system). RECOMMENDATIONS: Because of the findings of the left main and the ventricularized pressure dampening upon cannulation of the ostium and the distal calcified left main disease on top of the proximal right coronary artery disease on top of moderate to severe aortic valve stenosis, his best option (low STS score) is to proceed with open heart surgery with aortic valve replacement and coronary artery bypass graft to the left anterior descending/ramus intermediate artery plus/minus left circumflex obtuse marginal as well as distal right coronary artery. The case was discussed with Dr. Erin Giles, cardiovascular surgeon, who agreed with the plan. However, Mr. Cox wanted to fly back to [place] and have the surgery there with his familiar surroundings and his family support. I thank you for allowing me to participate in the care of this very pleasant gentleman. MD RASHAUN Ricks// , 04:14 PM , 05:09 PM
--- NOTE | 2017-06-29 13:45 | EKG ---
Date Performed: 06/28/2017 Time Performed: 11:54:48 PTAGE: 71 years EKG: Sinus rhythm . Normal ECG Since the PREVIOUS TRACING , no significant change noted PREVIOUS TRACIN08/01/2016 10.16 DOCTOR: Keeley Dumont Interpretating Date/Time 06/29/2017 13:42:15
== END 2017-06-28 18:32 | disposition home or self-care (01) ==
LOC: HCAT 11:05 → HDIC 11:06 → HCAT 18:32
PROVIDERS: ATTEND Internal Medicine Interventional Cardiology
DX: I35.0 Nonrheumatic aortic (valve) stenosis (principal); T82.855A Stenosis of coronary artery stent, initial encounter; I25.10 Atherosclerotic heart disease of native coronary artery without angina pectoris; E78.5 Hyperlipidemia, unspecified; Z68.25 Body mass index [BMI] 25.0-25.9, adult; Z95.5 Presence of coronary angioplasty implant and graft; Z79.899 Other long term (current) drug therapy
CPT/HCPCS: 80048; 82810; 85025; 85610; 85730; 93005; 93460; 99152; 99153; C1760; C1769; C1893; G0269; J1644; J2250; J3010; Q9967

== ENCOUNTER → 2017-07-14 | Outpatient (CLI) | payer MEDICARE, BC ==
[~2017-07-14] MED LIST changes: +ALIR1INJ SQ; +AMIO200T PO; +AMLO10CA PO; -ASPI1TAB69 PO; -CARV3.12 PO; -COLE625 PO; -COZA25TA PO; +D 50CAP2 PO; +DOCU1CAP39 PO; +ECASA81 PO; +FLUT50SP EACH NARE; -FURO20TA PO; -IBUP1TAB5 PO; +ISOS30TA3 PO; +MELO15TA20 PO; +METO25TA3 PO; +PLAV75TA29 PO; -POTA10CA PO; +SUCR1TAB PO; +TOPR25TA PO; +TRAM50TA PO; +VITA200C3 PO; +WALKER WHEELS/F1 MIS; +ZOLO50TA PO
[2017-07-14 11:07] LABS: AUTOMATED NEUTROPHIL # 3.8 TH/MM3 (1.8-7.7); BASOPHIL # 0.1 TH/MM3 (0-0.2); EOSINOPHIL # 0.3 TH/MM3 (0-0.4); HEMATOCRIT 45.1 % (39.0-51.0); HEMOGLOBIN 15.6 GM/DL (13.0-17.0); LYMPH % 24.4 % (9.0-44.0); LYMPHOCYTE # 1.5 TH/MM3 (1.0-4.8); MEAN CELL VOLUME 87.5 FL (80.0-100.0); MEAN CORPUSCULAR HEMOGLOBIN 30.3 PG (27.0-34.0); MEAN CORPUSCULAR HGB CONC 34.6 % (32.0-36.0); MEAN PLATELET VOLUME 9.6 FL (7.0-11.0); MONO % 8.7 % (0.0-8.0); MONOCYTE # 0.5 TH/MM3 (0-0.9); NEUT % 60.9 % (16.0-70.0); PLATELET COUNT 125 TH/MM3 (150-450); RED BLOOD COUNT 5.15 MIL/MM3 (4.50-5.90); RED CELL DISTRIBUTION WIDTH 13.9 % (11.6-17.2); WHITE BLOOD COUNT 6.2 TH/MM3 (4.0-11.0)
[2017-07-14 11:16] LABS: INTERNATIONAL NORMALIZED RATIO 1.1 RATIO; PROTHROMBIN TIME - PATIENT 10.7 SEC (9.8-11.6)
[2017-07-14 11:21] LABS: BILIRUBIN, URINE NEG (NEG); BLOOD, URINE NEG (NEG); GLUCOSE,URINE NEG (NEG); HYALINE CAST, URINE 2 /lpf (RARE); KETONE, URINE NEG (NEG); MUCUS URINE FEW /lpf (OCC); NITRITE,URINE NEG (NEG); PH, URINE 5.5 (5.0-8.5); URINE COLOR YELLOW (YELLW/STRAW); URINE LEUKOCYTE ESTERASE NEG (NEG)
[2017-07-14 11:25] LABS: BICARBONATE 26.5 MEQ/L (21.0-32.0); CALCIUM 9.3 MG/DL (8.5-10.1); CREATININE 1.38 MG/DL (0.60-1.30)
--- NOTE | 2017-07-14 12:40 | RADRPT ---
EXAM DATE/TIME: 07/14/2017 12:22 [facility] COMPARISON: No previous studies available for comparison. INDICATIONS : Evaluate for pneumonia, pneumothorax or communicable disease. Pre op for cabg 07-20-17 MEDICAL HISTORY : Myocardial infarction. asthma, allergies SURGICAL HISTORY : Coronary artery stent. cardiac catherization ENCOUNTER: Initial ACUITY: 1 day PAIN SCORE: 0/10 LOCATION: Bilateral chest FINDINGS: PA and lateral views of the chest demonstrate the lungs to be symmetrically aerated without evidence of mass, infiltrate or effusion. The cardiomediastinal contours are unremarkable. Osseous structure s are intact. CONCLUSION: No acute disease. Sae Durate MD FACR on July 14, 2017 at 12:38 Board Certified Radiologist. This report was verified electronically.
[2017-07-14 13:06] LABS: BANDS 2 % (0-6); BASOPHILS 1 % (0-2); LYMPHOCYTES 23 % (9-44); MONOCYTES 8 % (0-8); POLYS (SEG NEUTROPHILS) 62 % (16-70)
--- NOTE | 2017-07-14 14:49 | RADRPT ---
EXAM DATE/TIME: 07/14/2017 12:27 [facility] COMPARISON: No previous studies available for comparison. INDICATIONS : Pre-op cardiac surgery. MEDICAL HISTORY : Hypercholesterolemia. Hypertension. Myocardial infarction. CVA. Autoimmune hepatitis. Skin cancer. Ar thritis. GERD. SURGICAL HISTORY : Cardiac catheterization. Coronary stent. Right knee surgery. ENCOUNTER: Initial ACUITY: 1 day PAIN SCORE: 0/10 LOCATION: Bilateral legs. TECHNIQUE: Venous ultrasound of the left and right leg was performed from the inguinal ligament to the proximal calf. Real-time, color Doppler and spectral tracing, compression and augmentation techniques were us ed. FINDINGS: RIGHT LEG: There is normal compressibility of the deep venous system from the inguinal region to the proximal ca lf. No echogenic clot is seen in the lumen of the common femoral, femoral, popliteal, and posterior tibial veins. There is a normal response of the venous system to proximal and distal augmentation an d respiration. LEFT LEG: There is normal compressibility of the deep venous system from the inguinal region to the proximal ca lf. No echogenic clot is seen in the lumen of the common femoral, femoral, popliteal, and posterior tibial veins. There is a normal response of the venous system to proximal and distal augmentation an d respiration. CONCLUSION: No DVT in either lower extremity. Rambo Mehta MD on July 14, 2017 at 14:47 Board Certified Radiologist. This report was verified electronically.
--- NOTE | 2017-07-14 15:04 | RADRPT ---
EXAM DATE/TIME: 07/14/2017 12:44 [facility] COMPARISON: No previous studies available for comparison. INDICATIONS : Pre-op cardiac surgery. MEDICAL HISTORY : Myocardial infarction. Hypercholesterolemia. Hypertension. CVA. Autoimmune hepatitis. Skin cancer. Ar thritis. GERD. SURGICAL HISTORY : Cardiac catheterization. Coronary stent. Right knee surgery. ENCOUNTER: Initial ACUITY: 1 day PAIN SCORE: 0/10 LOCATION: Bilateral legs. GREATER SAPHENOUS VEIN THIGH: PROXIMAL: Right 4 mm Left 3 mm MID: Right 4 mm Left 2 mm DISTAL: Right 3 mm Left 2 mm CALF: PROXIMAL: Right 3 mm Left 1 mm MID: Right 1 mm Left 2 mm DISTAL: Right 2 mm Left Non-visualized FINDINGS: The venous system of the lower extremities are patent by color Doppler imaging. Measurements of the leg veins (in mm) are listed above. CONCLUSION: Venous mapping as above Sae Duarte MD FACR on July 14, 2017 at 15:02 Board Certified Radiologist. This report was verified electronically.
--- NOTE | 2017-07-14 15:05 | RADRPT ---
EXAM DATE/TIME: 07/14/2017 12:59 [facility] COMPARISON: No previous studies available for comparison. INDICATIONS : Pre-op cardiac surgery. MEDICAL HISTORY : Myocardial infarction. Hypertension. Hypercholesterolemia. CVA. Autoimmune hepa titis. Skin cancer. Arthritis. GERD. SURGICAL HISTORY : Cardiac catheterization. Coronary stent. Right knee surgery. ENCOUNTER: Initial ACUITY: 1 day PAIN SCORE: 0/10 LOCATION: Bilateral neck PEAK SYSTOLIC VELOCITIES (cm/sec): ICA/CCA RATIO: Right: 1.0 Left: 1.0 ICA: Right: 51 Left: 50 CCA: Right: 51 Left: 50 ECA: Right: 60 Left: 67 VERTEBRAL: Right: 47 antegrade Left: 47 antegrade Elevated flow velocities and ICA/CCA ratios have been found to correlate with increased degrees of vessel stenosis, calculated as percentage of diameter relative to a normal segment of distal ICA/CCA FINDINGS: RIGHT CAROTID: No significant stenosis is visualized. The waveforms are within normal limits. LEFT CAROTID: No significant stenosis is visualized. The waveforms are within normal limits. VERTEBRAL ARTERIES: Antegrade flow is seen in both vertebral arteries. MISCELLANEOUS: None. CONCLUSION: Negative for hemodynamically significant stenosis Sae Duarte MD FACR on July 14, 2017 at 15:02 Board Certified Radiologist. This report was verified electronically.
== END ==
LOC: CPRE 10:06
PROVIDERS: ATTEND Thoracic Surgery (Cardiothoracic Vascular Surgery)
DX: Z01.810 Encounter for preprocedural cardiovascular examination (principal); Z01.811 Encounter for preprocedural respiratory examination; Z01.812 Encounter for preprocedural laboratory examination; Z01.818 Encounter for other preprocedural examination; I35.0 Nonrheumatic aortic (valve) stenosis; I25.118 Atherosclerotic heart disease of native coronary artery with other forms of angina pectoris
CPT/HCPCS: 36415; 71046; 80048; 81001; 85007; 85027; 85610; 85730; 86850; 86900; 86901; 87640; 87641; 93880; 93970; 93998; 94010

== ENCOUNTER 2017-07-20 05:33 | Inpatient (IN) | payer MEDICARE, BC ==
[~2017-07-20] VITALS: Ht 167.6 cm; Wt 77.0 kg
[2017-07-20] VITALS (10 sets, daily range): BP systolic 83–130; BP diastolic 44–78; PULSE 69–90; RESP 10–16; TEMP 96.5–97; O2SAT 94–99
[~2017-07-20 05:33] MED LIST changes: -AMIO200T PO; -DOCU1CAP39 PO; -METO25TA3 PO; -PLAV75TA29 PO; -TOPR25TA PO; -TRAM50TA PO; -VITA400C28 PO; -WALKER WHEELS/F1 MIS
[2017-07-20] MEDS ORDERED: DEXTROSE 50% IN WATER 50 ML VIAL(D50) IV PUSH PRN ×2 (06:00→12:30)
[2017-07-20] MEDS ORDERED: ceFAZolin 2 GM PREMIX 50 ML IV SCH (06:00)
[2017-07-20] MEDS ORDERED: METOPROLOL TARTRATE 25 MG TAB PO SCH (06:00)
[2017-07-20] MEDS ORDERED: POVIDONE IODINE 5% (ANTISEPSIS KIT) 4 APPLICATIONS EACH NARE PRN (06:00)
[2017-07-20] MEDS ORDERED: SODIUM CHLORID 0.9% 500 ML IV PRN (06:00)
[2017-07-20] MEDS ORDERED: LACTATED RINGER'S 1000 ML IV PRN (06:00)
[2017-07-20] MEDS ORDERED: CHLORHEXIDINE GLUCONATE 4% SOLN 120 ML BTL TOPICAL SCH (06:00)
[2017-07-20] MEDS ORDERED: SODIUM CHLORIDE 0.9% FLUSH 10 ML FLUSH IV FLUSH PRN ×3 (06:00→12:30)
[2017-07-20] MEDS ORDERED: METOPROLOL TARTRATE 25 MG TAB PO PRN (06:00)
[2017-07-20] MEDS ORDERED: CHLORHEXIDINE GLUCONATE 2 % 1 PACK (2 CLOTHS) TOPICAL PRN (06:00)
[2017-07-20] MEDS ORDERED: HEPARIN SODIUM - SQ 10,000 UNITS/ML VIAL ONE (06:30)
[2017-07-20] MEDS ORDERED: methylPREDNISolone SOD SUCC 125 MG/2 ML VIAL ONE (06:30)
[2017-07-20] MEDS ORDERED: ceFAZolin 2 GM PREMIX 50 ML ONE (06:31)
[2017-07-20] MEDS ORDERED: VANCOMYCIN HCL 1000 MG VIAL ONE ×3 (06:31→06:32)
[2017-07-20] MEDS ORDERED: CUSTODIOL HTK IRR SOLN 2,000 ML ONE (07:00)
[2017-07-20] MEDS ORDERED: MANNITOL INJ 100 ML ONE (07:01)
[2017-07-20] MEDS ORDERED: POTASSIUM CHLOR 20 MEQ PREMIX 100 ML ONE (07:01)
[2017-07-20] MEDS ORDERED: SODIUM BICARBONATE 8.4% INJ 50 MEQ/50 ML SYR ONE (07:02)
[2017-07-20] MEDS ORDERED: ALBUMIN 25% INJ 50 ML IV ONE (07:02)
[2017-07-20] MEDS ORDERED: HEPARIN SODIUM - IV 10,000 UNITS/10 ML VIAL ONE (07:02)
[2017-07-20] MEDS ORDERED: INSULIN REGULAR 100 UNITS in NS 100 ML IV PRN (07:30)
[2017-07-20] MEDS ORDERED: PAPAVERINE INJ 60 MG, NITROGLYCERIN INJ 100 MCG, VERAPAMIL INJ 100 MG in SODIUM CHLORID... IRRIGATION SCH (07:30)
[2017-07-20] MEDS ORDERED: CEFAZOLIN 500 MG in NS IRR BTL 500 ML IRRIGATION SCH (07:30)
[2017-07-20] MEDS ORDERED: ceFAZolin INJ 1,000 MG VIAL ONE (11:38)
[2017-07-20] MEDS ORDERED: MAGNESIUM SULFATE 1 GM/2 ML VIAL IV ONE (12:00)
[2017-07-20] MEDS ORDERED: PROTAMINE SULFATE 250 MG/25 ML VIAL IV ONE (12:00)
[2017-07-20] MEDS ORDERED: PHENYLEPHRINE HCL 10 MG/ML VIAL IV ONE (12:00)
[2017-07-20] MEDS ORDERED: ePHEDrine/NS 25 MG/5 ML SYRINGE IV ONE (12:00)
[2017-07-20] MEDS ORDERED: LACTATED RINGER'S 1000 ML INJ 2,000 ML IV ONE (12:00)
[2017-07-20] MEDS ORDERED: HEPARIN SODIUM - SQ 10,000 UNITS/ML VIAL OTHER ONE (12:00)
[2017-07-20] MEDS ORDERED: SODIUM BICARBONATE 8.4% INJ 50 MEQ/50 ML SYR IV ONE (12:00)
[2017-07-20] MEDS ORDERED: PHENYLEPH/NS 1000 MCG/10 ML SYR IV ONE (12:00)
[2017-07-20] MEDS ORDERED: NITROGLYCERIN 50 MG/DEXTROSE 5% SOLN 250 ML BTL IV ONE (12:00)
[2017-07-20] MEDS ORDERED: SODIUM CHLOR 0.9% 250 ML INJ 500 ML IV ONE (12:00)
[2017-07-20] MEDS ORDERED: SODIUM CHLORID 0.9% 500 ML INJ 500 ML IV ONE (12:00)
[2017-07-20] MEDS ORDERED: DOPamine 800 MG/500 ML INJ 500 ML IV ONE (12:00)
[2017-07-20] MEDS ORDERED: CALCIUM CHLORIDE 10% SOLN 1 GRAM/10 ML SYR IV ONE (12:00)
[2017-07-20] MEDS ORDERED: AMINOCAPROIC ACID INJ 250 MG/ML 20 ML VIAL IV ONE (12:00)
[2017-07-20] MEDS ORDERED: VECURONIUM BROMIDE 10 MG VIAL IV ONE (12:00)
[2017-07-20] MEDS ORDERED: NORMOSOL R INJ 2,000 ML IV ONE (12:00)
[2017-07-20] MEDS ORDERED: DEXMEDETOMIDINE HCL 200 MCG/2 ML VIAL IV ONE (12:00)
[2017-07-20] MEDS ORDERED: LACTATED RINGER'S 1000 ML INJ 500 ML IV PRN (12:25)
[2017-07-20] MEDS ORDERED: RESP: RACEPINEPHRINE 2.25% 0.5 ML NEB NEB PRN ×2 (12:30→21:00)
[2017-07-20] MEDS ORDERED: POTASSIUM CHLOR 20 MEQ PREMIX 100 ML IV PRN ×3 (12:30)
[2017-07-20] MEDS ORDERED: Post-op Orders (for Pharmacy) OTHER ONE (12:30)
[2017-07-20] MEDS ORDERED: ALBUMIN 5% INJ 250 ML IV PRN (12:30)
[2017-07-20] MEDS ORDERED: CALCIUM CHLORIDE 10% 1 GRAM/10 ML VIAL IV PUSH PRN (12:30)
[2017-07-20] MEDS ORDERED: hydrALAZINE HCL 20 MG/ML VIAL IV PUSH PRN (12:30)
[2017-07-20] MEDS ORDERED: MAGNESIUM SULFATE INJ 2 GM in SODIUM CHLORIDE 0.9% INJ 100 ML IV PRN ×4 (12:30)
[2017-07-20] MEDS ORDERED: FLUTICASONE PROPIONATE 50 MCG/ACT 16 GM NASAL SPRAY EACH NARE PRN (12:30)
[2017-07-20] MEDS ORDERED: METOPROLOL TARTRATE 5 MG/5 ML VIAL IV PUSH PRN (12:30)
[2017-07-20] MEDS ORDERED: SODIUM BICARBONATE 8.4% SOLN 50 MEQ/50 ML VIAL IV PUSH PRN ×2 (12:30)
[2017-07-20] MEDS ORDERED: POTASSIUM CHLORIDE 20 MEQ CONTROLLED RELEASE TAB PO PRN ×2 (12:30)
--- NOTE | 2017-07-20 12:45 | PD.OP ---
cc: Dawit Gaxiola MD; Erin Giles MD Operative Report Date of Surgery: Jul 20, 2017 Preoperative Diagnosis: (1) CAD (coronary artery disease) (2) Aortic stenosis (3) Diastolic CHF (4) Non-STEMI (non-ST elevated myocardial infarction) Postoperative Diagnosis: same Procedure: AVR with a 23 Trifecta tissue valve CABG x 3 JORGE to LAD - good SVG to Ramus Intermedius - good SVG to PDA - good CAROLINA EV Anesthesia: Dr. Hermosillo Surgeon: Erin Giles Primary Care Pediatrician(s): Yehuda SCOTT Operation and Findings: Cross-clamp time 111 minutes Cardiopulmonary bypass time 128 minutes Drains 36 Anguillan mediastinum and 32 Anguillan left pleural chest tubes Findings: The patient had a moderately calcified trileaflet aortic valve. The distal targets were good. At the conclusion of the procedure, intraoperative CAROLINA showed a well-seated aortic valve with no perivalvular leaks. Left ventricular function was normal. Disposition: The patient was transferred to the CVICU in stable, but guarded condition. Operation in detail: After adequate general anesthesia, the patient was prepped and draped in the usual manner. A median sternotomy was performed and electrocautery was used to obtain hemostasis. Left internal mammary artery was procured as a pedicle from the 7th ribs to the 1st rib in the usual manner. Simultaneously, the left greater saphenous vein was procured using a minimally invasive technique. The vein was prepared for anastomosis and the leg wound was irrigated and closed in 2 layers. The pericardium was opened and the distal mammary artery was instrumented for anastomosis after adequate heparinization for cardiopulmonary bypass. The heart was instrumented for cardiopulmonary bypass in the usual manner. Antegrade Custodiol cardioplegia was used. The left ventricle was vented through the right superior pulmonary vein. The patient was placed on cardiopulmonary bypass and target vessels were identified. And aortic cross-clamp was applied and the heart was arrest is using Custodiol antegrade cardioplegia. After adequate arrest, the PDA was opened with a Grindstone blade and found to be a 1.5 millimeter good target. The saphenous vein was approximated to the artery using a running 7-0 Prolene suture. The vein was measured for length and orientation and the proximal anastomosis was performed using a running 5-0 Prolene suture after creating an aortotomy with a 5mm punch. The Ramus Intermedius artery was opened with a Grindstone blade and found to be a 1.5 millimeter good target. The saphenous vein was approximated to the artery using a running 7-0 Prolene suture. The vein was measured for length and orientation and suspended from the pericardium.The distal LAD was then opened with a Grindstone blade and found to be a 1-1/2 millimeter good target. The left internal mammary artery was approximated to the LAD using a running 7 0 Prolene suture. The pedicle was tacked to the epicardium using interrupted 5 0 silk suture. The aorta was vented and opened above the sinotubular ridge. The valve was found to be trileaflet with moderate calcification. Aortic valve was excised sharply and the annulus was decalcified using rongeurs. The aorta and LV were copiously irrigated with saline. The annulus was sized to a 23 [place] Trifecta bioprosthetic valve which was seated using several interrupted 2-0 Tycron pledgeted horizontal mattress sutures. After seating the valve and securing the sutures, the aorta was repaired in 2 layers using running 4-0 Prolene suture. The patient was placed in steep Trendelenburg position. The aorta was vented and the proximal anastomosis to the RI graft was performed using a running 5-0 Prolene suture after creating an aortotomy with a 5 millimeter punch. The aorta and left ventricle were vented and the aortic cross-clamp was removed. The heart resumed a bradycardic rhythm which eventually converted to a sinus rhythm after several minutes. The heart was filled allowed to eject. The aortic valve replacement was then assessed by intraoperative CAROLINA. The valve was found to be well seated with no perivalvular leak. Left ventricular function was noted to be normal. The patient was weaned from cardiopulmonary bypass. Protamine was administered to reverse the heparin and all cannulae were removed without incident. A 36 Anguillan mediastinal/ 32 Anguillan left pleural chest tubes were positioned and each was secured to the skin with a 0 silk suture. The operative field was then examined again for hemostasis which was obtained using electrocautery. The wound was then closed in layers by approximating the sternal tables with interrupted number 6 stainless steel wires following which the presternal fashion was approximately around a 1. PDS suture. The wound was copiously irrigated. The subcutaneous tissue was approximated using a running 2- 0 Vicryl suture and the skin was approximated with running 4-0 Monocryl subcuticular stitch. All sponge and instrument counts were correct at the close of the procedure and the patient was transported the CVICU in stable, but guarded condition. Erin Giles M.D., F.A.C.C., F.A.C.S. Erin Giles MD Jul 20, 2017 12:45
[2017-07-20] MEDS ORDERED: fentaNYL CITRATE 250 MCG/5 ML AMP ONE (13:15)
[2017-07-20] MEDS ORDERED: MORPHINE SULFATE 4 MG/ML INJ ONE (13:15)
[2017-07-20] MEDS ORDERED: MIDAZOLAM HCL 2 MG/2 ML VIAL ONE (13:15)
[2017-07-20] MEDS ORDERED: ACETAMINOPHEN 650 MG SUPP RECTAL PRN (14:00)
[2017-07-20] MEDS ORDERED: ACETAMINOPHEN 325 MG TAB PO PRN (14:00)
[2017-07-20] MEDS: AMIODARONE 200 MG TAB PO SCH ×2 (14:00→22:16)
[2017-07-20] MEDS ORDERED: RESP: ALBUTEROL 2.5 MG/IPRATROPIUM 0.5 MG NEB (PRN) NEB ×2 (14:00→21:00)
--- NOTE | 2017-07-20 14:18 | PD.CAR.PN ---
CVT Progress Note Subjective/Hospital Course: 71/ male hx of CAD s/p PCI stent of RCA 2016, presented to Dr Gaxiola with exertional dyspnea and indigestion. He denies palpitations, PND, orthopnea. recent postive stress test . He underwent left and right heart cathwhich showed left main and 3 vessel CAD, moderate to severe , EF 65% PMH: CAD, , astma , Gerd, HLP, HTN pt electively admitted for surgery surgery 07/20: AVR with a 23 Trifecta tissue valve, CABG x 3, JORGE to LAD - good , SVG to Ramus Intermedius - good, SVG to PDA - good, CAROLINA, EVH Objective: Vital Signs Date Time Temp Pulse Resp B/P (MAP) Pulse Ox O2 Delivery O2 Flow Rate FiO2 07/20/17 13:52 98 50 07/20/17 13:05 94 50 07/20/17 06:14 97.9 75 20 122/82 (95) 96 (1) S/P AVR (aortic valve replacement) (2) S/P CABG x 3 (3) CAD (coronary artery disease) (4) Aortic stenosis (5) Diastolic CHF (6) Hyperlipidemia (7) Hypertension Yue Amaral Jul 20, 2017 14:18
[2017-07-20] MEDS: CALCIUM CHLORIDE INJ 1 GM in SODIUM CHLORIDE 0.9% INJ 100 ML IV PRN ×2 (14:22→18:19)
--- NOTE | 2017-07-20 14:23 | HHI.FF ---
Face to Face Verification Diagnosis: (1) Aortic stenosis (2) CAD (coronary artery disease) Home Health Nursing Order: Signs/symptoms of disease process Medication education-adverse effect Wound care and dressing changes Nursing assessment with vital signs Instructions: Heart and Vascular Surgery patients *Special attention to sternal dressing Mandatory frequency Assess and evaluation, 4 days in a row The next week 3X week 2 times a week for 4 weeks 1 time a week for 5 weeks Schedule Heart and Vascular patients for full 60 day certification period Initial visit Review Open Heart Surgery Discharge Instructions (Sternal precautions, Activity, Elastic hose, Incision care, Driving, Incentive spirometry, Smoking, Lilly, Work and other) Need Betadine to paint incision Medication reconciliation Importance of follow up care/ check on appointments Make calendar record temperature daily When to call [facility] at Home nurse, review instructions, phone list Incentive Spirometry, demonstration Visit 1- Begin discharge instruction for patient family and/ or caregiver using teach back method- Signs and symptoms of infection Disease characteristics Medicines and side effects Foods and nutrition/ appetite Infection control/ hand washing/ hygiene Visit 2- Continue teaching Discharge instructions- include additional information on smoking cessation , sternal dressing (sternal vac) Visit 3- Continue teaching- Cough and deep breathing, incision monitoring. Choose my plate Visit 4- Continue teaching- Discuss limitations Discuss how they are feeling Discuss progress toward goals Remaining visits- continue teaching and monitoring For any questions please call : Monday 8am-5pm Heart & Vascular Surgery Office ( Dr. Davila & Dr. Giles), After Hours / Nights (5pm -8am) Weekends and Holidays Please call [facility] ([facility]) Charge Nurse PREVENA Single Use Negative Wound Therapy System Caregiver Instruction Sheet 1. A Prevena dressing system was applied to the chest incision during surgery , to promote wound healing. It works via a suction device (negative pressure wound therapy) to remove low to moderate levels of exudate (drainage) and infectious materials. We recommend that the device stay in place for up to seven days, from day of surgery. 2. Day of Surgery____/ Day of Removal /06/11____ 3. The dressing should only be removed by a health child care cook. Please arrange removal of device to coincide with Home Health visit and or with Nursing staff at Rehab 4. If skin reddening or irritation of skin occurs, or excessive drainage, please notify the Cardiovascular Surgeons office at [phone]. 5. Light showering is permissible; however the pump should be disconnected and placed in safe location, where it will not get wet. The dressing should not be exposed to direct spray or submerged in water. No bath tub / shower only. Ensure the end of the tubing attached to the dressing is facing down so that water does not enter the top of the tube. 6. To remove Prevena dressing: press purple button to turn off device / remove the suction. Then disconnect the tubing from the pump. The fixation strips should be stretched away from the skin and the dressing lifted at one corner and peeled back until it has been fully removed. 7. After removal, it is ok to shower daily using liquid dial soap and clean wash cloth, rinse and pat dry, and leave incision open to air dry. For any concerns regarding Prevena dressing, and or wounds, please contact Suzy Teresa, patient navigator at [phone] or notify the Cardiovascular Surgeons office at [phone]. Incentive spirometry Q1 hr x 10, while awake, also use acapella device hourly whole awake Sternal Breast Bone Precautions: NO pushing or pulling, ( pt must use sternal pillow to support chest with all activities and with coughing ( takes up to 3 months breast bone to heal ) All females to wear sternal bra , launder as needed Daily incision care: ok to shower daily, no tub bath. Wash all incisions with liquid dial soap, clean wash cloth to each site, rinse and pat dry. Observe for any signs of infection, such as drainage which is dark yellow, stanley, green or foul smelling. Immediately report to the surgeon any drainage from the chest incision, or legs, and for any abnormal drainage from the chest tube sites. Notify surgeon if any temp >101.5 degrees F. When specialty dressing removed/ or if you do not have one, continue to shower daily as above, then rinse and pat incision dry and paint with betadine daily x 5 days. Allow steri strips to fall off if you have any. Avoid lotions, creams, salves, oils, etc. for the first month Please see attached forms for additional instructions regarding post Open Heart specialty wound vacuum dressings. HARI or Prevena , Dressing to be removed by Nursing staff on __07/27/[address] Giles patients , please obtain CBC, BMP, PA & Lat CXR in 2 weeks, results to Dr. Giles ( prescription will be given) ( ) (Tele: [phone]) , Valve replacement pts will need 2decho in 2 weeks with results to Dr. Giles . Please obtain 2 d echo at your ironer machine office if possible F/U appointment: as per DC instructions: PCP in 2 weeks, CV surgeon 2 weeks, Outdoor Education Teacher 3-4 weeks For any questions regarding incisions/ dressing / meds / post op care or above Symptoms, Monday 8am-5pm Heart & Vascular Surgery Office ( Dr. Davila & Dr. Giles), After Hours / Nights (5pm -8am) Weekends and Holidays Please call [facility] ([facility]) Charge Nurse I have seen patient Guero Cox on 07/20/17. My clinical findings support the need for the requested home health care services because: Deconditioned w/ increased weakness I certify that my clinical findings support that this patient is homebound because: Post-op weakness Yue Amaral Jul 20, 2017 14:23
--- NOTE | 2017-07-20 14:47 | RADRPT ---
EXAM DATE/TIME: 07/20/2017 13:23 [facility] COMPARISON: CHEST SINGLE AP, August 01, 2016, 7:13. INDICATIONS : Post-op coronary artery bypass graft surgery. MEDICAL HISTORY : None. SURGICAL HISTORY : None. ENCOUNTER: Initial ACUITY: 1 day PAIN SCORE: Non-responsive. LOCATION: chest FINDINGS: Median sternotomy wires are noted status post cardiac surgery. Mediastinal drain and left chest tube are in good positions. No pneumothorax is noted. An endotracheal tube has its tip 3 cm above the licha na. A nasogastric tube has its tip in the proximal stomach and its side-port in the distal esophagus. Right internal jugular central line has its tip in the superior vena cava. The heart is mildly promi nent. Minimal central pulmonary vascular congestion is noted. CONCLUSION: Multiple tubes and lines are in good positions. Mild cardiomegaly and minimal central pulmonary vascu lar congestion. David Maria MD on July 20, 2017 at 14:37 Board Certified Radiologist. This report was verified electronically.
[2017-07-20] MEDS ORDERED: CLEVIDIPINE INJ 50 ML IV PRN (15:00)
[2017-07-20] MEDS ORDERED: ALBUTEROL SULFATE 90 MCG/ACT HFA 8 GM INHALER INH PRN (15:00)
[2017-07-20] MEDS: ACETAMINOPHEN 1000 MG/100 ML 100 ML IV SCH ×2 (15:00→21:14)
[2017-07-20] MEDS ORDERED: DEXMEDETOMIDINE INJ 200 MCG in SODIUM CHLORIDE 0.9% INJ 50 ML IV PRN (15:00)
[2017-07-20] MEDS: SUCRALFATE 1 GM TAB PO SCH ×3 (16:00→22:19)
[2017-07-20] MEDS ORDERED: INSULIN REGULAR (IV INFUSION) 100 UNITS in SODIUM CHLORIDE 0.9% INJ 99 ML IV PRN (16:00)
[2017-07-20] MEDS ORDERED: POTASSIUM CHLOR 20 MEQ PREMIX 100 ML IV ONE (18:30)
[2017-07-20] MEDS: ONDANSETRON HCL 4 MG/2 ML VIAL IV PUSH PRN (19:34)
[2017-07-20] MEDS: RESP: ALBUTEROL 2.5 MG/IPRATROPIUM 0.5 MG NEB (SCH) NEB (20:50)
[2017-07-20] MEDS: SODIUM CHLORIDE 0.9% FLUSH 10 ML FLUSH IV FLUSH SCH (21:14)
[2017-07-21] VITALS (14 sets, daily range): BP systolic 108–146; BP diastolic 2–84; PULSE 72–125; RESP 14–21; TEMP 97.5–98.7; O2SAT 92–100
[2017-07-21] MEDS: SERTRALINE HCL 50 MG TAB PO SCH ×2 (01:08→20:47)
[2017-07-21] MEDS: oxyCODONE/ACETAMINOPHEN 5 MG/325 MG TAB PO PRN ×5 (02:06→21:01)
[2017-07-21] MEDS: ACETAMINOPHEN 1000 MG/100 ML 100 ML IV SCH ×2 (02:14→09:15)
[2017-07-21] MEDS: RESP: ALBUTEROL 2.5 MG/IPRATROPIUM 0.5 MG NEB (SCH) NEB ×4 (02:47→20:40)
[2017-07-21 05:06] LABS: HEMATOCRIT 36.5 % (39.0-51.0); HEMOGLOBIN 12.5 GM/DL (13.0-17.0); MEAN CELL VOLUME 88.1 FL (80.0-100.0); MEAN CORPUSCULAR HEMOGLOBIN 30.2 PG (27.0-34.0); MEAN CORPUSCULAR HGB CONC 34.2 % (32.0-36.0); MEAN PLATELET VOLUME 9.8 FL (7.0-11.0); PLATELET COUNT 74 TH/MM3 (150-450); RED BLOOD COUNT 4.14 MIL/MM3 (4.50-5.90); RED CELL DISTRIBUTION WIDTH 14.1 % (11.6-17.2); WHITE BLOOD COUNT 14.3 TH/MM3 (4.0-11.0)
[2017-07-21 05:36] LABS: BICARBONATE 23.9 MEQ/L (21.0-32.0); CALCIUM 8.2 MG/DL (8.5-10.1); CREATININE 1.04 MG/DL (0.60-1.30); MAGNESIUM 1.9 MG/DL (1.5-2.5)
--- NOTE | 2017-07-21 05:48 | RADRPT ---
EXAM DATE/TIME: 07/21/2017 04:52 [facility] COMPARISON: CHEST SINGLE AP, July 20, 2017, 13:23. INDICATIONS : Status post CABG. MEDICAL HISTORY : None. SURGICAL HISTORY : CABG. ENCOUNTER: Subsequent ACUITY: 1 day PAIN SCORE: Non-responsive. LOCATION: Bilateral chest FINDINGS: Interval extubation and removal of gastric tube. Left chest drainage tube and mediastinal drain stab le in position. There is persistent patchy areas of infiltrate in the left lower lung. The right devyn ng is clear. No evidence of pneumothorax. CONCLUSION: Stable patchy infiltrates at the left lower lung. No evidence of pneumothorax. Beni Ching MD on July 21, 2017 at 5:46 Board Certified Radiologist. This report was verified electronically.
[2017-07-21] MEDS: PANTOPRAZOLE SOD 40 MG DELAYED RELEASE TAB PO SCH (06:15)
[2017-07-21] MEDS: AMIODARONE 200 MG TAB PO SCH ×3 (06:16→21:02)
[2017-07-21] MEDS ORDERED: BISACODYL 10 MG SUPP RECTAL PRN (08:00)
[2017-07-21] MEDS ORDERED: GLUCAGON 1 MG/ML VIAL OTHER PRN (08:00)
[2017-07-21] MEDS ORDERED: DEXTROSE 50% IN WATER 50 ML VIAL(D50) IV PUSH PRN (08:00)
[2017-07-21] MEDS ORDERED: FISH OIL CHOLECALCIFEROL PO SCH (09:00)
[2017-07-21] MEDS ORDERED: PILL SPLITTER OTHER PRN (09:00)
[2017-07-21] MEDS ORDERED: POTASSIUM CHLORIDE 20 MEQ CONTROLLED RELEASE TAB PO ONE (09:00)
[2017-07-21] MEDS ORDERED: FUROSEMIDE 40 MG/4 ML VIAL IV PUSH ONE (09:00)
[2017-07-21] MEDS: SUCRALFATE 1 GM TAB PO SCH ×4 (09:15→20:45)
[2017-07-21] MEDS: ASPIRIN 81 MG CHEW TAB PO SCH (09:16)
[2017-07-21] MEDS: SODIUM CHLORIDE 0.9% FLUSH 10 ML FLUSH IV FLUSH SCH ×2 (09:16→20:46)
[2017-07-21] MEDS: MAGNESIUM HYDROXIDE SUSP 30 ML CUP PO SCH (09:20)
[2017-07-21] MEDS: MULTIVITAMINS/MINERALS THERAPEUTIC TAB PO SCH (09:20)
[2017-07-21] MEDS: METOPROLOL TARTRATE 25 MG TAB PO SCH ×2 (09:48→20:45)
[2017-07-21] MEDS: INSULIN ASPART SUPPLEMENTAL SCALE SQ SCH ×4 (10:05→21:16)
--- NOTE | 2017-07-21 11:08 | PD.CAR.PN ---
CVT Progress Note Subjective/Hospital Course: 71/ male hx of CAD s/p PCI stent of RCA 2016, presented to Dr Gaxiola with exertional dyspnea and indigestion. He denies palpitations, PND, orthopnea. recent postive stress test . He underwent left and right heart cathwhich showed left main and 3 vessel CAD, moderate to severe , EF 65% PMH: CAD, , astma , Gerd, HLP, HTN surgery 07/20: AVR with a 23 Trifecta tissue valve, CABG x 3, JORGE to LAD - good , SVG to Ramus Intermedius - good, SVG to PDA - good, [place], EVH extubated after surgery 07/21 on nasal cannula in NSR pain controlled EKG no acute changes start plavix when chest tubes out pt on Praulent q2 weeks for hyperlipidemia transfer to stepdown area Objective: GENERAL: A&O x 3 SKIN: Warm and dry. prevena to chest , nani wrap left leg HEAD: Normocephalic. EYES: No scleral icterus. No injection or drainage. NECK: Supple, trachea midline. No JVD or lymphadenopathy. CARDIOVASCULAR: Regular rate and rhythm without murmurs, gallops, or rubs. mild edema RESPIRATORY: Breath sounds equal bilaterally. No accessory muscle use. chest tube to wall suction/ chest tube drained 500cc/ 12hrs GASTROINTESTINAL: Abdomen soft, non-tender, nondistended. MUSCULOSKELETAL: No cyanosis, or edema. BACK: Nontender without obvious deformity. No CVA tenderness. Vital Signs Date Time Temp Pulse Resp B/P (MAP) Pulse Ox O2 Delivery O2 Flow Rate FiO2 07/21/17 09:20 95 Nasal Cannula 2.00 07/21/17 08:00 93 Nasal Cannula 1.00 Humidified 07/21/17 08:00 98.0 108 16 108/74 (85) 93 108/53 (71) 07/21/17 08:00 108 07/21/17 07:00 20 07/21/17 03:15 97 Nasal Cannula 4.00 07/21/17 03:00 83 07/21/17 03:00 98.2 112 14 115/71 (86) 95 121/59 (79) 07/21/17 02:50 95 Nasal Cannula 3.00 07/21/17 00:00 98 Nasal Cannula 4.00 07/21/17 00:00 98.1 99 16 134/76 (95) 97 140/65 (90) 07/20/17 23:00 83 07/20/17 21:15 97 Nasal Cannula 3.00 07/20/17 20:00 96.5 90 16 110/78 (89) 98 130/67 (88) 07/20/17 20:00 98 Nasal Cannula 4.00 07/20/17 19:00 83 07/20/17 16:13 50 07/20/17 16:13 98 Nasal Cannula 4.00 07/20/17 16:13 99 Nasal Cannula 4.00 07/20/17 15:50 99 40 07/20/17 15:00 70 07/20/17 15:00 70 11 103/64 (77) 98 96/55 (69) 07/20/17 14:35 94 40 07/20/17 13:52 98 50 07/20/17 13:05 50 07/20/17 13:05 94 50 07/20/17 13:05 69 07/20/17 13:05 97.0 69 10 113/72 (86) 94 83/44 (57) Labs: Laboratory Tests Test 07/21/17 04:00 White Blood Count 14.3 TH/MM3 (4.0-11.0) Red Blood Count 4.14 MIL/MM3 (4.50-5.90) Hemoglobin 12.5 GM/DL (13.0-17.0) Hematocrit 36.5 % (39.0-51.0) Mean Corpuscular Volume 88.1 FL (80.0-100.0) Mean Corpuscular Hemoglobin 30.2 PG (27.0-34.0) Mean Corpuscular Hemoglobin Concent 34.2 % (32.0-36.0) Red Cell Distribution Width 14.1 % (11.6-17.2) Platelet Count 74 TH/MM3 (150-450) Mean Platelet Volume 9.8 FL (7.0-11.0) Blood Urea Nitrogen 20 MG/DL (7-18) Creatinine 1.04 MG/DL (0.60-1.30) Random Glucose 123 MG/DL (74-106) Calcium Level 8.2 MG/DL (8.5-10.1) Magnesium Level 1.9 MG/DL (1.5-2.5) Sodium Level 143 MEQ/L (136-145) Potassium Level 3.9 MEQ/L (3.5-5.1) Chloride Level 106 MEQ/L (98-107) Carbon Dioxide Level 23.9 MEQ/L (21.0-32.0) Anion Gap 13 MEQ/L (5-15) Estimat Glomerular Filtration Rate 70 ML/MIN (>89) Result Diagram: 07/21/17 0400 07/21/17 0400 Telemetry: NSR (1) S/P AVR (aortic valve replacement) (2) S/P CABG x 3 Plan: on ASA, resume Praulent at home for cholesterol amiodarone , BB start plavix when chest tubes out pulm toileting OOB ambulate CM to eval for HHC at discharge (3) CAD (coronary artery disease) (4) Aortic stenosis (5) Diastolic CHF Plan: gentle diuresis (6) Hyperlipidemia Plan: on Praulent at home (7) Hypertension Plan: Yue Jansen Jul 21, 2017 11:07
--- NOTE | 2017-07-21 13:49 | EKG ---
Date Performed: 07/20/2017 Time Performed: 16:50:38 PTAGE: 71 years EKG: Sinus rhythm . Anterolateral ST elevation suggests early repolarization Borderline ECG PREVIOUS TRACING : 06/28/2017 11.54 Since the previous tracing, no significant change noted DOCTOR: Camilo Schwartz Interpretating Date/Time 07/21/2017 13:45:42
[2017-07-21] MEDS ORDERED: AMIODARONE 150 MG/D5W 97 ML BOLUS 10 MINUTES IV ONE ×2 (19:15)
[2017-07-21] MEDS: MAGNESIUM SULFATE 1 GM PREMIX 100 ML IV SCH ×2 (20:03→20:45)
[2017-07-21] MEDS: ONDANSETRON HCL 4 MG/2 ML VIAL IV PUSH PRN (20:06)
[2017-07-21] MEDS: SENNOSIDES 8.6 MG TAB PO SCH (20:45)
[2017-07-21] MEDS: DOCUSATE SODIUM 100 MG CAP PO SCH (20:45)
--- NOTE | 2017-07-21 23:49 | EKG ---
Date Performed: 07/21/2017 Time Performed: 07:54:20 PTAGE: 71 years EKG: CONSIDER ACUTE ST ELEVATION NM Sinus tachycardia Lateral ST elevation, CONSIDER ACU TE INFARCT, probable early repolarization Abnormal ECG PREVIOUS TRACING : 07/20/2017 16.50 Since the previous tracing, no significant change noted DOCTOR: Rey Huang Interpretating Date/Time 07/21/2017 23:48:01
[2017-07-22] VITALS (16 sets, daily range): BP systolic 105–121; BP diastolic 53–65; PULSE 7–120; RESP 16–21; TEMP 97.5–99.1; O2SAT 93–99
[2017-07-22] MEDS: oxyCODONE/ACETAMINOPHEN 5 MG/325 MG TAB PO PRN ×5 (01:03→21:11)
[2017-07-22] MEDS: INSULIN ASPART SUPPLEMENTAL SCALE SQ SCH ×6 (01:07→21:00)
[2017-07-22] MEDS: RESP: ALBUTEROL 2.5 MG/IPRATROPIUM 0.5 MG NEB (SCH) NEB ×2 (04:00→09:41)
[2017-07-22 04:25] LABS: AUTOMATED NEUTROPHIL # 11.9 TH/MM3 (1.8-7.7); BASOPHIL % 0.1 % (0.0-2.0); EOSINOPHIL % 0.1 % (0.0-4.0); HEMATOCRIT 34.8 % (39.0-51.0); HEMOGLOBIN 11.9 GM/DL (13.0-17.0); LYMPH % 12.8 % (9.0-44.0); LYMPHOCYTE # 2.1 TH/MM3 (1.0-4.8); MEAN CELL VOLUME 88.7 FL (80.0-100.0); MEAN CORPUSCULAR HEMOGLOBIN 30.4 PG (27.0-34.0); MEAN CORPUSCULAR HGB CONC 34.3 % (32.0-36.0); MEAN PLATELET VOLUME 9.8 FL (7.0-11.0); MONO % 13.5 % (0.0-8.0); MONOCYTE # 2.2 TH/MM3 (0-0.9); NEUT % 73.5 % (16.0-70.0); PLATELET COUNT 74 TH/MM3 (150-450); RED BLOOD COUNT 3.92 MIL/MM3 (4.50-5.90); RED CELL DISTRIBUTION WIDTH 14.3 % (11.6-17.2); WHITE BLOOD COUNT 16.1 TH/MM3 (4.0-11.0)
[2017-07-22 04:52] LABS: BICARBONATE 27.8 MEQ/L (21.0-32.0); CREATININE 1.25 MG/DL (0.60-1.30); MAGNESIUM 2.9 MG/DL (1.5-2.5)
[2017-07-22 05:00] LABS: BANDS 3 % (0-6); DOHLE BODIES PRESENT (NONE SEEN); LYMPHOCYTES 9 % (9-44); MONOCYTES 12 % (0-8); NEUTROPHIL # MANUAL DIFF 12.7 TH/MM3 (1.8-7.7); POLYS (SEG NEUTROPHILS) 76 % (16-70)
[2017-07-22] MEDS: AMIODARONE 200 MG TAB PO SCH ×3 (05:02→21:11)
[2017-07-22] MEDS: PANTOPRAZOLE SOD 40 MG DELAYED RELEASE TAB PO SCH (05:03)
[2017-07-22] MEDS: SUCRALFATE 1 GM TAB PO SCH ×4 (08:12→21:10)
[2017-07-22] MEDS: SODIUM CHLORIDE 0.9% FLUSH 10 ML FLUSH IV FLUSH SCH ×2 (08:12→21:12)
[2017-07-22] MEDS: POLYETHYLENE GLYCOL 17 GM PKG PO SCH (08:12)
[2017-07-22] MEDS: DOCUSATE SODIUM 100 MG CAP PO SCH ×2 (08:12→21:10)
[2017-07-22] MEDS: MULTIVITAMINS/MINERALS THERAPEUTIC TAB PO SCH (08:12)
[2017-07-22] MEDS: MAGNESIUM HYDROXIDE SUSP 30 ML CUP PO SCH (08:12)
[2017-07-22] MEDS: METOPROLOL TARTRATE 25 MG TAB PO SCH ×2 (08:13→21:10)
[2017-07-22] MEDS: ASPIRIN 81 MG CHEW TAB PO SCH (08:13)
--- NOTE | 2017-07-22 10:24 | PD.CAR.PN ---
CVT Progress Note CVT: POD #: 2 Subjective/Hospital Course: 71/ male hx of CAD s/p PCI stent of RCA 2016, presented to Dr Gaxiola with exertional dyspnea and indigestion. He denies palpitations, PND, orthopnea. recent postive stress test . He underwent left and right heart cathwhich showed left main and 3 vessel CAD, moderate to severe , EF 65% PMH: CAD, , astma , Gerd, HLP, HTN surgery 07/20: AVR with a 23 Trifecta tissue valve, CABG x 3, JORGE to LAD - good , SVG to Ramus Intermedius - good, SVG to PDA - good, [place], EVH extubated after surgery 07/21 on nasal cannula in NSR pain controlled EKG no acute changes start plavix when chest tubes out pt [facility] Praulent [facility] No complaints, doing well s/p AVR/CABG Objective: Vital Signs Date Time Temp Pulse Resp B/P (MAP) Pulse Ox O2 Delivery O2 Flow Rate FiO2 07/22/17 09:40 94 21 07/22/17 09:32 98 Nasal Cannula 2.00 07/22/17 09:00 113 07/22/17 08:00 97.5 107 16 105/59 (74) 98 07/22/17 08:00 107 07/22/17 08:00 98 Nasal Cannula 2.00 07/22/17 07:00 88 07/22/17 03:50 79 07/22/17 03:50 Nasal Cannula 1.50 07/22/17 03:50 98.3 80 20 109/62 (78) 99 07/21/17 23:47 110 07/21/17 23:47 Nasal Cannula 1.50 07/21/17 23:47 98.5 114 21 114/79 (91) 97 07/21/17 20:43 98 Nasal Cannula 2.00 07/21/17 20:03 100 102/59 07/21/17 19:40 Nasal Cannula 2.00 07/21/17 19:40 98.7 125 21 115/65 (82) 97 07/21/17 19:40 124 07/21/17 19:37 136 112/70 07/21/17 18:00 122 07/21/17 17:00 98 07/21/17 16:00 72 07/21/17 15:58 100 Nasal Cannula 2.00 07/21/17 15:00 78 07/21/17 15:00 92 Nasal Cannula 1.00 Humidified 07/21/17 15:00 97.5 78 20 146/84 (104) 92 Arterial Line 07/21/17 13:00 16 07/21/17 11:00 93 Nasal Cannula 1.00 Humidified 07/21/17 11:00 97.8 92 16 108/2 (37) 95 07/21/17 11:00 93 Labs: Laboratory Tests Test 07/22/17 03:37 White Blood Count 16.1 TH/MM3 (4.0-11.0) Red Blood Count 3.92 MIL/MM3 (4.50-5.90) Hemoglobin 11.9 GM/DL (13.0-17.0) Hematocrit 34.8 % (39.0-51.0) Mean Corpuscular Volume 88.7 FL (80.0-100.0) Mean Corpuscular Hemoglobin 30.4 PG (27.0-34.0) Mean Corpuscular Hemoglobin Concent 34.3 % (32.0-36.0) Red Cell Distribution Width 14.3 % (11.6-17.2) Platelet Count 74 TH/MM3 (150-450) Mean Platelet Volume 9.8 FL (7.0-11.0) Neutrophils (%) (Auto) 73.5 % (16.0-70.0) Lymphocytes (%) (Auto) 12.8 % (9.0-44.0) Monocytes (%) (Auto) 13.5 % (0.0-8.0) Eosinophils (%) (Auto) 0.1 % (0.0-4.0) Basophils (%) (Auto) 0.1 % (0.0-2.0) Neutrophils # (Auto) 11.9 TH/MM3 (1.8-7.7) Lymphocytes # (Auto) 2.1 TH/MM3 (1.0-4.8) Monocytes # (Auto) 2.2 TH/MM3 (0-0.9) Eosinophils # (Auto) 0.0 TH/MM3 (0-0.4) Basophils # (Auto) 0.0 TH/MM3 (0-0.2) CBC Comment AUTO DIFF Differential Total Cells Counted 100 Neutrophils % (Manual) 76 % (16-70) Band Neutrophils % 3 % (0-6) Lymphocytes % 9 % (9-44) Monocytes % 12 % (0-8) Neutrophils # (Manual) 12.7 TH/MM3 (1.8-7.7) Differential Comment FINAL DIFF MANUAL Dohle Bodies PRESENT (NONE SEEN) Platelet Estimate LOW (NORMAL) Platelet Morphology Comment NORMAL (NORMAL) Blood Urea Nitrogen 30 MG/DL (7-18) Creatinine 1.25 MG/DL (0.60-1.30) Random Glucose 105 MG/DL (74-106) Calcium Level 8.0 MG/DL (8.5-10.1) Magnesium Level 2.9 MG/DL (1.5-2.5) Sodium Level 137 MEQ/L (136-145) Potassium Level 4.1 MEQ/L (3.5-5.1) Chloride Level 101 MEQ/L (98-107) Carbon Dioxide Level 27.8 MEQ/L (21.0-32.0) Anion Gap 8 MEQ/L (5-15) Estimat Glomerular Filtration Rate 57 ML/MIN (>89) Result Diagram: 07/22/1733607/22/17336 Cardiovascular: RRR Telemetry: NSR Pulmonary: Few crackles bilat GI/: NABS, NT Incision: dry and intact CT: 190ml/12hrs Plan: Continue chest tubes one more day Encourage ambulation Continue ASA, BB, Praluent. Will add a low dose statin. May require diuresis, but will hold off today due to BP being marginal and creatinine being slightly elevated BMP CXR in AM (1) S/P AVR (aortic valve replacement) (2) S/P CABG x 3 Plan: on ASA, resume Praulent at home for cholesterol amiodarone , BB start plavix when chest tubes out pulm toileting OOB ambulate CM to eval for C at discharge (3) CAD (coronary artery disease) (4) Aortic stenosis (5) Diastolic CHF Plan: gentle diuresis (6) Hyperlipidemia Plan: on Praulent at home (7) Hypertension Plan: Erin Sheridan MD Jul 22, 2017 10:24
[2017-07-22] MEDS: ATORVASTATIN 10 MG TAB PO SCH (21:00)
[2017-07-22] MEDS: SENNOSIDES 8.6 MG TAB PO SCH (21:10)
[2017-07-22] MEDS: SERTRALINE HCL 50 MG TAB PO SCH (21:11)
[2017-07-23] VITALS (22 sets, daily range): BP systolic 102–114; BP diastolic 57–64; PULSE 79–114; RESP 16–22; TEMP 97.9–99; O2SAT 93–98
[2017-07-23] MEDS: oxyCODONE/ACETAMINOPHEN 5 MG/325 MG TAB PO PRN ×3 (03:14→23:20)
[2017-07-23 03:52] LABS: BICARBONATE 27.4 MEQ/L (21.0-32.0); CREATININE 1.15 MG/DL (0.60-1.30)
[2017-07-23 03:54] LABS: CHOLESTEROL/ HDL RATIO 2.33 RATIO; HDL CHOLESTEROL 30.8 MG/DL (40.0-60.0)
[2017-07-23] MEDS: AMIODARONE 200 MG TAB PO SCH ×3 (05:15→21:37)
[2017-07-23] MEDS: PANTOPRAZOLE SOD 40 MG DELAYED RELEASE TAB PO SCH (05:15)
--- NOTE | 2017-07-23 05:59 | RADRPT ---
EXAM DATE/TIME: 07/23/2017 05:09 [facility] COMPARISON: CHEST SINGLE AP, July 21, 2017, 4:52. INDICATIONS : Shortness of breath, possible pulmonary disease. MEDICAL HISTORY : None. SURGICAL HISTORY : CABG. ENCOUNTER: Subsequent ACUITY: 3 days PAIN SCORE: 4/10 LOCATION: Bilateral chest FINDINGS: Right central line tip at the cavoatrial junction. Left chest tube and mediastinal drain stable in p osition. No pneumothorax seen the lungs are symmetrically aerated. No focal infiltrates seen. Both hemidiaphragms are well delineated. CONCLUSION: Lines and tubes stable. No infiltrates seen. Beni Ching MD on July 23, 2017 at 5:56 Board Certified Radiologist. This report was verified electronically.
[2017-07-23] MEDS: INSULIN ASPART SUPPLEMENTAL SCALE SQ SCH ×4 (08:00→21:00)
[2017-07-23] MEDS ORDERED: ALIROCUMAB SQ SCH (09:00)
[2017-07-23] MEDS: DOCUSATE SODIUM 100 MG CAP PO SCH ×2 (09:12→21:00)
[2017-07-23] MEDS: MULTIVITAMINS/MINERALS THERAPEUTIC TAB PO SCH (09:12)
[2017-07-23] MEDS: SUCRALFATE 1 GM TAB PO SCH ×4 (09:12→21:37)
[2017-07-23] MEDS: POLYETHYLENE GLYCOL 17 GM PKG PO SCH (09:12)
[2017-07-23] MEDS: MAGNESIUM HYDROXIDE SUSP 30 ML CUP PO SCH (09:12)
[2017-07-23] MEDS: METOPROLOL TARTRATE 25 MG TAB PO SCH ×2 (09:12→21:37)
[2017-07-23] MEDS: ASPIRIN 81 MG CHEW TAB PO SCH (09:13)
[2017-07-23] MEDS: SODIUM CHLORIDE 0.9% FLUSH 10 ML FLUSH IV FLUSH SCH ×2 (09:13→21:37)
--- NOTE | 2017-07-23 10:26 | PD.CAR.PN ---
CVT Progress Note CVT: POD #: 3 Subjective/Hospital Course: 71/ male hx of CAD s/p PCI stent of RCA 2016, presented to Dr Gaxiola with exertional dyspnea and indigestion. He denies palpitations, PND, orthopnea. recent postive stress test . He underwent left and right heart cathwhich showed left main and 3 vessel CAD, moderate to severe , EF 65% PMH: CAD, , astma , Gerd, HLP, HTN surgery 07/20: AVR with a 23 Trifecta tissue valve, CABG x 3, JORGE to LAD - good , SVG to Ramus Intermedius - good, SVG to PDA - good, [place], EVH extubated after surgery 07/21 on nasal cannula in NSR pain controlled EKG no acute changes start plavix when chest tubes out pt on Praulent q2 weeks for hyperlipidemia transfer to stepdown area 07/22/17 No complaints, doing well s/p AVR/CABG 07/23/17 Doing well, no complaints. +BM Objective: Vital Signs Date Time Temp Pulse Resp B/P (MAP) Pulse Ox O2 Delivery O2 Flow Rate FiO2 07/23/17 03:48 99.0 82 20 110/57 (74) 98 07/23/17 03:48 83 07/23/17 03:48 98 Room Air 07/22/17 23:09 96 Room Air 07/22/17 23:09 92 07/22/17 23:09 98.7 93 21 121/65 (83) 95 07/22/17 19:40 96 Room Air 07/22/17 19:40 98.8 86 21 112/59 (76) 96 07/22/17 19:40 86 07/22/17 17:00 93 07/22/17 16:00 93 Room Air 07/22/17 16:00 89 07/22/17 16:00 99.1 7 16 111/53 (72) 93 07/22/17 15:00 89 07/22/17 14:30 16 07/22/17 14:00 96 07/22/17 13:00 84 07/22/17 12:00 84 07/22/17 11:00 97.7 89 16 116/64 (81) 93 07/22/17 11:00 93 Room Air 07/22/17 11:00 89 Labs: Laboratory Tests Test 07/23/17 03:20 Blood Urea Nitrogen 30 MG/DL (7-18) Creatinine 1.15 MG/DL (0.60-1.30) Random Glucose 109 MG/DL (74-106) Calcium Level 8.0 MG/DL (8.5-10.1) Sodium Level 137 MEQ/L (136-145) Potassium Level 4.4 MEQ/L (3.5-5.1) Chloride Level 101 MEQ/L (98-107) Carbon Dioxide Level 27.4 MEQ/L (21.0-32.0) Anion Gap 9 MEQ/L (5-15) Estimat Glomerular Filtration Rate 63 ML/MIN (>89) Triglycerides Level 121 MG/DL (42-150) Cholesterol Level 72 MG/DL (120-200) LDL Cholesterol 17 MG/DL (0-99) HDL Cholesterol 30.8 MG/DL (40.0-60.0) Cholesterol/HDL Ratio 2.33 RATIO Result Diagram: 07/22/17 0337 07/23/17 0320 Imaging: Last 24 hours Impressions Chest X-Ray 07/23/17 0600 Signed Impressions: Service Date/Time: Sunday, July 23, 2017 05:09 - CONCLUSION: Lines and tubes stable. No infiltrates seen. Beni Ching MD Cardiovascular: RRR Telemetry: NSR Pulmonary: CTA GI/: NABS, NT Incision: dry and intact CT: 80ml/12hrs Plan: Remove chest tubes Start plavix continue other meds D/C in AM Encourage ambulation (1) S/P AVR (aortic valve replacement) (2) S/P CABG x 3 Plan: on ASA, resume Praulent at home for cholesterol amiodarone , BB start plavix when chest tubes out pulm toileting OOB ambulate CM to eval for HHC at discharge (3) CAD (coronary artery disease) (4) Aortic stenosis (5) Diastolic CHF Plan: gentle diuresis (6) Hyperlipidemia Plan: on Praulent at home (7) Hypertension Plan: Erin Sheridan MD Jul 23, 2017 10:26
[2017-07-23] MEDS: ATORVASTATIN 10 MG TAB PO SCH (19:49)
[2017-07-23] MEDS: SENNOSIDES 8.6 MG TAB PO SCH (21:00)
[2017-07-23] MEDS: SERTRALINE HCL 50 MG TAB PO SCH (21:37)
[2017-07-24] VITALS (11 sets, daily range): BP systolic 96–120; BP diastolic 51–57; PULSE 70–88; RESP 16–18; TEMP 97.8–97.9; O2SAT 95–98
[2017-07-24] MEDS: PANTOPRAZOLE SOD 40 MG DELAYED RELEASE TAB PO SCH (06:11)
[2017-07-24] MEDS: AMIODARONE 200 MG TAB PO SCH (06:11)
[2017-07-24] MEDS: METOPROLOL TARTRATE 25 MG TAB PO SCH (08:18)
[2017-07-24] MEDS: SUCRALFATE 1 GM TAB PO SCH ×2 (08:19→11:49)
[2017-07-24] MEDS: MULTIVITAMINS/MINERALS THERAPEUTIC TAB PO SCH (08:20)
[2017-07-24] MEDS: ASPIRIN 81 MG CHEW TAB PO SCH ×2 (08:22→11:49)
[2017-07-24] MEDS: SODIUM CHLORIDE 0.9% FLUSH 10 ML FLUSH IV FLUSH SCH (08:26)
[2017-07-24] MEDS ORDERED: CLOPIDOGREL 75 MG TAB PO SCH (09:00)
[2017-07-24] MEDS ORDERED: METO25TA3 PO (11:12)
[2017-07-24] MEDS ORDERED: DOCU1CAP39 PO (11:12)
[2017-07-24] MEDS ORDERED: TRAM50TA PO (11:12)
[2017-07-24] MEDS ORDERED: PLAV75TA29 PO (11:12)
[2017-07-24] MEDS ORDERED: AMIO200T PO (11:12)
[2017-07-24] MEDS ORDERED: WALKER WHEELS/F1 MIS (11:13)
--- NOTE | 2017-07-24 11:18 | HHI.DS ---
Discharge Summary Admission Date Jul 20, 2017 at 05:33 Discharge Date: Jul 24, 2017 Admitting Diagnosis (1) CAD (coronary artery disease) (2) Aortic stenosis (3) Diastolic CHF (4) Non-STEMI (non-ST elevated myocardial infarction) (1) CAD (coronary artery disease) Diagnosis: Principal ICD Codes: I25.10 - Atherosclerotic heart disease of [place] coronary artery without angina pectoris (2) Non-STEMI (non-ST elevated myocardial infarction) Diagnosis: Principal ICD Codes: I21.4 - Non-ST elevation (NSTEMI) myocardial infarction Status: Acute (3) Aortic stenosis Diagnosis: Principal ICD Codes: I35.0 - Nonrheumatic aortic (valve) stenosis (4) Diastolic CHF Diagnosis: Principal ICD Codes: I50.30 - Unspecified diastolic (congestive) heart failure (5) Hyperlipidemia Diagnosis: Principal ICD Codes: E78.5 - Hyperlipidemia, unspecified Status: Acute (6) Hypertension Diagnosis: Principal ICD Codes: I10 - Essential (primary) hypertension Status: Acute (7) S/P CABG x 3 Diagnosis: Secondary ICD Codes: Z95.1 - Presence of aortocoronary bypass graft (8) S/P AVR (aortic valve replacement) Diagnosis: Secondary ICD Codes: Z95.2 - Presence of prosthetic heart valve Procedures AVR with a 23 Trifecta tissue valve 07/20 CABG x 3 JORGE to LAD - good SVG to Ramus Intermedius - good SVG to PDA - good [place] EVH Brief History 71/ male hx of CAD s/p PCI stent of RCA 2016, presented to Dr Gaxiola with exertional dyspnea and indigestion. He denies palpitations, PND, orthopnea. recent postive stress test . He underwent left and right heart cathwhich showed left main and 3 vessel CAD, moderate to severe , EF 65% PMH: CAD, , astma , Gerd, HLP, HTN surgery 07/20: AVR with a 23 Trifecta tissue valve, CABG x 3, JORGE to LAD - good , SVG to Ramus Intermedius - good, SVG to PDA - good, [place], EVH extubated after surgery CBC/BMP: 07/22/17 0337 07/23/17 0320 Significant Findings Laboratory Tests Test 07/22/17 03:37 07/23/17 03:20 White Blood Count 16.1 TH/MM3 (4.0-11.0) Red Blood Count 3.92 MIL/MM3 (4.50-5.90) Hemoglobin 11.9 GM/DL (13.0-17.0) Hematocrit 34.8 % (39.0-51.0) Platelet Count 74 TH/MM3 (150-450) Neutrophils (%) (Auto) 73.5 % (16.0-70.0) Monocytes (%) (Auto) 13.5 % (0.0-8.0) Neutrophils # (Auto) 11.9 TH/MM3 (1.8-7.7) Monocytes # (Auto) 2.2 TH/MM3 (0-0.9) Neutrophils % (Manual) 76 % (16-70) Monocytes % 12 % (0-8) Neutrophils # (Manual) 12.7 TH/MM3 (1.8-7.7) Dohle Bodies PRESENT (NONE SEEN) Platelet Estimate LOW (NORMAL) Blood Urea Nitrogen 30 MG/DL (7-18) 30 MG/DL (7-18) Calcium Level 8.0 MG/DL (8.5-10.1) 8.0 MG/DL (8.5-10.1) Magnesium Level 2.9 MG/DL (1.5-2.5) Estimat Glomerular Filtration Rate 57 ML/MIN (>89) 63 ML/MIN (>89) Random Glucose 109 MG/DL (74-106) Cholesterol Level 72 MG/DL (120-200) HDL Cholesterol 30.8 MG/DL (40.0-60.0) Imaging Current Medications Medications (Trade) Dose Ordered Sig/Balaji Route Start Time Stop Time Status Last Admin (NS Flush) 2 ml BID IV FLUSH 07/20/17 21:00 07/24/17 08:26 (NS Flush) 2 ml UNSCH PRN IV FLUSH 07/20/17 12:30 (Aspirin Chew) 81 mg DAILY PO 07/21/17 09:00 07/24/17 08:22 (Protonix) 40 mg DAILY@06 PO 07/21/17 06:00 07/24/17 06:11 (Cordarone) 400 mg Q8HR PO 07/20/17 14:00 07/24/17 06:11 (Tylenol) 650 mg Q4H PRN PO 07/20/17 14:00 07/24/17 06:18 (Zofran Inj) 4 mg Q6H PRN IV PUSH 07/20/17 12:30 07/21/17 20:06 (Apresoline Inj) 10 mg Q4H PRN IV PUSH 07/20/17 12:30 (Lopressor Inj) 2.5 mg Q1H PRN IV PUSH 07/20/17 12:30 07/21/17 18:09 (Duoneb Neb) 1 ampule Q2HR NEB PRN NEB 07/20/17 14:00 (Proair Hfa Inh) 2 puff Q4H PRN INH 07/20/17 15:00 (Flonase Antony Spr) 1 spray BID PRN EACH NARE 07/20/17 12:30 07/21/17 09:15 (Zoloft) 50 mg HS PO 07/20/17 21:00 07/23/17 21:37 (Carafate) 1 gm QID PO 07/20/17 16:00 07/24/17 08:19 Patient Own Medication PT OWN MED: PRALUENT (ALIROCUM... Q14D SQ 07/23/17 09:00 Future hold 07/23/17 09:00 (Colace) 100 mg BID PO 07/21/17 21:00 07/23/17 09:12 (Theragran M Tab) 1 tab DAILY PO 07/21/17 09:00 07/24/17 08:20 (Milk Of Magnesia Liq) 30 ml DAILY PO 07/21/17 09:00 07/23/17 09:12 (Dulcolax Supp) 10 mg UNSCH PRN RECTAL 07/21/17 08:00 (Miralax) 17 gm DAILY PO 07/22/17 09:00 07/23/17 09:12 (Senokot) 8.6 mg HS PO 07/21/17 21:00 07/22/17 21:10 (Lopressor) 12.5 mg BID PO 07/21/17 09:00 07/24/17 08:18 (D50w (Vial) Inj) 50 ml UNSCH PRN IV PUSH 07/21/17 08:00 (Glucagon Inj) 1 mg UNSCH PRN OTHER 07/21/17 08:00 (Pill Splitter) 1 ea UNSCH PRN OTHER 07/21/17 09:00 (Percocet 5-325 Mg) 1 tab Q4H PRN PO 07/21/17 20:45 07/23/17 03:14 (Percocet 5-325 Mg) 2 tab Q4H PRN PO 07/21/17 20:45 07/23/17 23:20 (Lipitor) 10 mg HS PO 07/22/17 21:00 (NovoLOG SUPPLEMENTAL SCALE) 1 ACHS SQ 07/22/17 17:00 07/23/17 08:00 (Plavix) 75 mg DAILY PO 07/24/17 09:00 07/24/17 08:21 PE at Discharge GENERAL: A&O x 3 SKIN: Warm and dry. prevena dressing to chest , incision intact to left left EVH site engineer: Normocephalic. EYES: No scleral icterus. No injection or drainage. NECK: Supple, trachea midline. No JVD or lymphadenopathy. CARDIOVASCULAR: slightly irregular rate and rhythm without murmurs, gallops, or rubs. RESPIRATORY: Breath sounds equal bilaterally. No accessory muscle use. GASTROINTESTINAL: Abdomen soft, non-tender, nondistended. MUSCULOSKELETAL: No cyanosis, or edema. BACK: Nontender without obvious deformity. No CVA tenderness. Hospital Course surgery 07/20: AVR with a 23 Trifecta tissue valve, CABG x 3, JORGE to LAD - good , SVG to Ramus Intermedius - good, SVG to PDA - good, [place], EVH extubated after surgery 07/21 on nasal cannula in NSR pain controlled EKG no acute changes start plavix when chest tubes out pt on Praulent q2 weeks for hyperlipidemia transfer to [facility] area 07/22/17 No complaints, doing well s/p AVR/CABG 07/23/17 Doing well, no complaints. +BM 07/24 doing well , on room air pain controlled NSR with PAC's stable for dc home with [facility] Pt Condition on Discharge: Good Discharge Disposition: Disch w/ Home Health Serv Discharge Instructions DIET: Follow Instructions for: Heart Healthy Diet Activities you can perform: Full Weight Bearing, Shower Only-No Bath Activities to avoid: Prolonged Standing, Strenuous Activity, Driving Additional Activity Instructio: no lifting > 8 lbs or gallon of milk Follow up Referrals: Cardiology - 4 Weeks with Dawit Gaxiola MD PCP Follow-up - 2 Weeks with Tico Silva MD Surgical - 2 Weeks with Yue Amaral New Orders: 2D ECHO - 2 Weeks BASIC METABOLIC PROF - 2 Weeks CBC NO DIFF - 2 Weeks X-RAY CHEST PA & LAT - 2 Weeks New Medications: Tramadol (Tramadol) 50 Mg Tab 50 MG PO Q6H PRN for PAIN, #30 TAB 0 Refills Walker with Front Wheels (Walker with Front Wheels) 1 Mis Mis EA .XX DIRECTED, #1 0 Refills Amiodarone (Amiodarone) 200 Mg Tab 200 MG PO Q12HR for heart rhythm, #28 TAB 0 Refills Clopidogrel (Plavix) 75 Mg Tab 75 MG PO DAILY for Blood Clot Prevention, #30 TAB 2 Refills Docusate Sodium (Dok) 100 Mg Cap 100 MG PO DAILY for Constipation, #30 CAP Metoprolol Tartrate (Metoprolol Tartrate) 25 Mg Tab 12.5 MG PO BID for Blood Pressure Management, #60 TAB 2 Refills hold SBP<100 HR<60 Continued Medications: Albuterol 18 GM Inh (Ventolin Hfa 18 GM Inh) 90 Mcg/Act Aer 2 PUFF INH Q4H PRN for SHORTNESS OF BREATH, #1 INHALER 0 Refills Alirocumab Pen Inj Pack (Praluent Pen Inj Pack) 75 Mg/Ml Pfpen 75 MG SQ Q14D, #[address] (Aspirin DR) 81 Mg Tabdr 81 MG PO DAILY, TAB 0 Refills Cholecalciferol (D3 Maximum Strength) 5,000 Unit Cap 5000 UNITS PO DAILY for Nutritional Supplement, #30 CAP 0 Refills Coenzyme Q10 (Coenzyme Q10) 1 Pow Pow [address] (Nexium) 40 Mg Capdr 40 MG PO DAILY, CAP 0 Refills Fish Oil-Cholecalciferol ([place]-3 Fish Oil/Vitamin) 1,000-1,000 Mg Cap 2 CAP PO DAILY for Nutritional Supplement, CAP 0 Refills Fluticasone Nasal [place] (Fluticasone Nasal [place]) 50 Mcg/Act Naspr 50 MCG EACH NARE BID PRN for Allergy Management, #1 BOTTLE 0 Refills 50 mcg/spray Meloxicam (Meloxicam) 15 Mg Tab 15 MG PO DAILY for Arthritis Pain, #30 TAB 0 Refills Multiple Vitamin (Multiple Vitamin) 1 Tab 1 TAB PO DAILY for Nutritional Supplement, TAB 0 Refills Sertraline (Zoloft) 50 Mg Tab 50 MG PO HS, #30 TAB 0 Refills Sucralfate (Sucralfate) 1 Gram Tab 1 GM PO QID for Duodenal ulcer, #120 TAB 0 Refills on empty stomach Vitamin E (Vitamin E) 200 Unit Cap 400 UNITS PO DAILY for Nutritional Supplement, CAP 0 Refills Discontinued Medications: Amlodipine-Benazepril (Amlodipine-Benazepril) 10-20 Mg Cap 1 CAP PO HS for Blood Pressure Management, #30 CAP 0 Refills Prasugrel (Effient) 10 Mg Tab 10 MG PO DAILY, #30 TAB Yue Amaral Jul 24, 2017 11:17
== END 2017-07-24 14:10 | disposition home health service (06) | DRG 219 ==
LOC: HSDI 05:33 → HCVI 13:05 → HCPC 07-21 14:20
PROVIDERS: ADMIT Thoracic Surgery (Cardiothoracic Vascular Surgery); ATTEND Thoracic Surgery (Cardiothoracic Vascular Surgery)
PROC: 06BQ3ZZ Excision of Left Saphenous Vein, Percutaneous Approach (ICD-10-PCS; 2017-07-20)
PROC: 021109W Bypass Coronary Artery, Two Arteries from Aorta with Autologous Venous Tissue, Open Approach (ICD-10-PCS; 2017-07-20)
PROC: B24BZZ4 Ultrasonography of Heart with Aorta, Transesophageal (ICD-10-PCS; 2017-07-20)
PROC: 5A1221Z Performance of Cardiac Output, Continuous (ICD-10-PCS; 2017-07-20)
PROC: 02RF08Z Replacement of Aortic Valve with Zooplastic Tissue, Open Approach (ICD-10-PCS; principal; 2017-07-20 07:33)
PROC: 02100Z9 Bypass Coronary Artery, One Artery from Left Internal Mammary, Open Approach (ICD-10-PCS; 2017-07-20 07:33)
DX: I35.0 Nonrheumatic aortic (valve) stenosis (principal); I21.4 Non-ST elevation (NSTEMI) myocardial infarction; I50.30 Unspecified diastolic (congestive) heart failure; I11.0 Hypertensive heart disease with heart failure; I25.10 Atherosclerotic heart disease of native coronary artery without angina pectoris; E78.5 Hyperlipidemia, unspecified; K21.9 Gastro-esophageal reflux disease without esophagitis
CPT/HCPCS: 71045; 76937; 80048; 80061; 82948; 83735; 85007; 85027; 86850; 86900; 86901; 86920; 88305; 88311; 93005; 93318; 94002; 94150; 94640; 94664; 94667; 94668; J0131; J0282; J0690; J1265; J1644; J1815; J1817; J1940; J2150; J2250; J2270; J2370; J2405; J2440; J2720; J2930; J3010; J3370; J3475; J3480; J7040; J7050; J7120; P9045; P9047

== ENCOUNTER 2017-08-21 10:37 | Inpatient (IN) | payer MEDICARE, BC ==
[2017-08-21] VITALS (10 sets, daily range): BP systolic 122–147; BP diastolic 60–77; PULSE 69–83; RESP 16–28; TEMP 97.7–98.2; O2SAT 92–97
[~2017-08-21] VITALS: Ht 167.6 cm; Wt 70.7 kg
[~2017-08-21 10:37] MED LIST changes: +AMIO200T PO; -AMLO10CA PO; +DOCU1CAP39 PO; -ISOS30TA3 PO; +METO25TA3 PO; -NITR1SUB3 SL; +PLAV75TA29 PO; -PRAS10TA PO; +TRAM50TA PO; +WALKER WHEELS/F1 MIS
[2017-08-21] MEDS ORDERED: APIX5TAB PO (11:10)
[2017-08-21] MEDS ORDERED: METO25TA3 PO (11:10)
[2017-08-21] MEDS ORDERED: SODIUM CHLORIDE 0.9% FLUSH 10 ML FLUSH IVF PRN (11:15)
--- NOTE | 2017-08-21 11:27 | PD ---
HPI Chief Complaint: Respiratory Symptoms Time Seen by Provider: 11:02 Travel History International Travel<30 days: No Contact w/Intl Traveler<30days: No Traveled to known affect area: No History of Present Illness HPI 71-year-old male with history of CVA, asthma, CAD with AVR and CABG 3 on July 20 of [address] Dr. Giles, presents emergency department today for evaluation of worsening shortness of breath with associated bilateral lower extremity edema. Patient was discharged here on July 24. He tells me that he was doing his exercise and rehab as he was supposed to. He developed some chest congestion with a cough productive of yellow-green sputum. He was placed on an antibiotic that he finished today. 5 days ago on Monday, patient did go into atrial fibrillation which she does not have a history from. He was cardio converted by Dr. Levy his nurse discharge. He tells me since then he feels like the shortness of breath has been worsening. He noticed his lower extremity edema 2 or 3 days ago. Patient states he has been unable to lie flat since his surgery and has had some associated shortness of breath however this has also been worsening over the last 2-3 days. He tells me he still does have a cough with mild sputum production. He denies any fever or chills. He has no significant pain. Denies any nausea, vomiting, lightheaded sensation, or episodes of diaphoresis. Patient has no other symptoms to report at this time. PFSH Past Medical History Hx Anticoagulant Therapy: Yes Arthritis: Yes Asthma: Yes Autoimmune Disease: Yes Anxiety: Yes Heart Rhythm Problems: No Cancer: Yes (skin, basal cell) Cardiac Catheterization: Yes (07/26/16; triple bypass and aortic valve replacement) Cardiovascular Problems: Yes High Cholesterol: Yes Chest Pain: Yes Congestive Heart Failure: No COPD: No Cerebrovascular Accident: Yes (RCA STENT PLACEMENT 2017) Diabetes: No Diminished Hearing: No Endocrine: No GERD: Yes Genitourinary: No Hepatitis: Yes (autoimmune ) Hiatal Hernia: No Hypertension: Yes Immune Disorder: No Kidney Stones: Yes Musculoskeletal: Yes Neurologic: No Psychiatric: Yes (dep/anx) Reproductive: No Respiratory: Yes (Asthma, bronchospasm) Myocardial Infarction: Yes Sleep Apnea: No Thyroid Disease: No Ulcer: No Past Surgical History Abdominal Surgery: No AICD: No Coronary Stent: Yes (RIGHT RCA) Ear Surgery: No Endocrine Surgery: No Eye Surgery: No Gynecologic Surgery: No Joint Replacement: No Oral Surgery: Yes (tonsillectomy) Pacemaker: No Thoracic Surgery: No Tonsillectomy: Yes Social History Alcohol Use: Yes (glass of wine nightly) Tobacco Use: Yes (CIGARS ) Substance Use: No Allergies-Medications (Allergen,Severity, Reaction): Coded Allergies: No Known Allergies (Verified Allergy, Unknown, 08/21/17) Reported Meds & Prescriptions Reported Meds & Active Scripts Active Walker with Front Wheels (Device) 1 Mis Mis Ea .XX DIRECTED Amiodarone (Amiodarone HCl) 200 Mg Tab 200 Mg PO Q12HR Reported Metoprolol Tartrate 25 Mg Tab 25 Mg PO BID Eliquis (Apixaban) 5 Mg Tab 5 Mg PO BID Vitamin E 200 Unit Cap 400 Units PO DAILY D3 Maximum Strength (Cholecalciferol) 5,000 Unit Cap 5,000 Units PO DAILY Fluticasone Nasal [place] 50 Mcg/Act Naspr 50 Mcg EACH NARE BID PRN 50 mcg/spray Zoloft (Sertraline HCl) 50 Mg Tab 50 Mg PO HS Sucralfate 1 Gram Tab 1 Gm PO QID on empty stomach Nexium (Esomeprazole DR) 40 Mg Capdr 40 Mg PO DAILY Praluent Pen Inj Pack (Alirocumab Pen Inj Pack) 75 Mg/Ml Pfpen 75 Mg SQ Q14D Aspirin DR (Aspirin) 81 Mg Tabdr 81 Mg PO DAILY Ventolin Hfa 18 GM Inh (Albuterol Sulfate) 90 Mcg/Act Aer 2 Puff INH Q4H PRN Coenzyme Q10 1 Pow Pow 300 PO DAILY Multiple Vitamin 1 Tab 1 Tab PO DAILY [place]-3 Fish Oil/Vitamin (Fish Oil-Cholecalciferol) 1,000-1,000 Mg Cap 2 Cap PO DAILY Review of Systems Except as stated in HPI: all other systems reviewed are Neg Physical Exam Narrative GENERAL: Well-nourished male patient, in no acute distress. SKIN: Focused skin assessment warm/dry. Vertical sternal incision site, well approximated, appears to be well-healing. No erythema, edema, or drainage. HEAD: Atraumatic. Normocephalic. EYES: Pupils equal and round. No scleral icterus. No injection or drainage. ENT: No nasal bleeding or discharge. Mucous membranes pink and moist. NECK: Trachea midline. No JVD. CARDIOVASCULAR: Regular rate and rhythm. 3/6 systolic murmur appreciated. RESPIRATORY: No accessory muscle use. Clear bilateral upper lobes. Patient has diminished bases with fine crackles. Breath sounds equal bilaterally. GASTROINTESTINAL: Abdomen soft, non-tender, nondistended. Hepatic and splenic margins not palpable. MUSCULOSKELETAL: No obvious deformities. No clubbing. No cyanosis. 2+ bilateral lower extremity edema. Distal pulses are palpable. NEUROLOGICAL: Awake and alert. No obvious cranial nerve deficits. Motor grossly within normal limits. Normal speech. PSYCHIATRIC: Appropriate mood and affect; insight and judgment normal. Data Data Last Documented VS Vital Signs Date Time Temp Pulse Resp B/P (MAP) Pulse Ox O2 Delivery O2 Flow Rate FiO2 08/21/17 13:38 69 16 139/67 (91) 96 Nasal Cannula 2.00 08/21/17 10:50 97.7 Orders Orders Electrocardiogram (08/21/17 11:11) Basic Metabolic Panel (Bmp) (08/21/17 11:11) B-Type Natriuretic Peptide (08/21/17 11:11) Ckmb (Isoenzyme) Profile (08/21/17 11:11) Complete Blood Count With Diff (08/21/17 11:11) Magnesium (Mg) (08/21/17 11:11) Prothrombin Time / Inr (Pt) (08/21/17 11:11) Act Partial Throm Time (Ptt) (08/21/17 11:11) Troponin I (08/21/17 11:11) Chest, Single Ap (08/21/17 11:11) Ecg Monitoring (08/21/17 11:11) Bilateral Bp Monitoring (08/21/17 11:11) Iv Access Insert/Monitor (08/21/17 11:11) Oximetry (08/21/17 11:11) Oxygen Administration (08/21/17 11:11) Sodium Chloride 0.9% Flush (Ns Flush) (08/21/17 11:15) Labs Laboratory Tests Test 08/21/17 11:23 White Blood Count 8.0 TH/MM3 Red Blood Count 3.85 MIL/MM3 Hemoglobin 10.9 GM/DL Hematocrit 33.3 % Mean Corpuscular Volume 86.6 FL Mean Corpuscular Hemoglobin 28.2 PG Mean Corpuscular Hemoglobin Concent 32.6 % Red Cell Distribution Width 15.3 % Platelet Count 155 TH/MM3 Mean Platelet Volume 9.4 FL Neutrophils (%) (Auto) 77.4 % Lymphocytes (%) (Auto) 8.3 % Monocytes (%) (Auto) 9.7 % Eosinophils (%) (Auto) 3.9 % Basophils (%) (Auto) 0.7 % Neutrophils # (Auto) 6.2 TH/MM3 Lymphocytes # (Auto) 0.7 TH/MM3 Monocytes # (Auto) 0.8 TH/MM3 Eosinophils # (Auto) 0.3 TH/MM3 Basophils # (Auto) 0.1 TH/MM3 CBC Comment DIFF FINAL Differential Comment Prothrombin Time 13.2 SEC Prothromb Time International Ratio 1.3 RATIO Activated Partial Thromboplast Time 29.4 SEC Blood Urea Nitrogen 19 MG/DL Creatinine 1.35 MG/DL Random Glucose 103 MG/DL Calcium Level 8.6 MG/DL Magnesium Level 2.2 MG/DL Sodium Level 139 MEQ/L Potassium Level 4.4 MEQ/L Chloride Level 107 MEQ/L Carbon Dioxide Level 23.8 MEQ/L Anion Gap 8 MEQ/L Estimat Glomerular Filtration Rate 52 ML/MIN Total Creatine Kinase 65 U/L Troponin I LESS THAN 0.02 NG/ML B-Type Natriuretic Peptide 723 PG/ML MDM Medical Decision Making Medical Screen Exam Complete: Yes Emergency Medical Condition: Yes Medical Record Reviewed: Yes Differential Diagnosis ACS versus CHF versus dysrhythmia versus pneumonia versus electrolyte abnormality Narrative Course 71-year-old male presents emergency department with worsening shortness of breath with bilateral lower extremity edema. Patient has history of significant CAD, CABG 3 with AVR at the end of June of this year. Patient is followed by Dr. Levy, cardiology, and Dr. Giles cardiothoracic surgeon. Patient appears nontoxic. He does have bilateral lower extremity edema. He does desaturate to 86-88% on room air with any activity. He has been placed on 2 L nasal cannula. EKG is complete and reviewed by my attending physician. Patient is in a normal sinus rhythm. No significant ST elevation or depression. Laboratory Tests Test 08/21/17 11:23 White Blood Count 8.0 TH/MM3 Red Blood Count 3.85 MIL/MM3 Hemoglobin 10.9 GM/DL Hematocrit 33.3 % Mean Corpuscular Volume 86.6 FL Mean Corpuscular Hemoglobin 28.2 PG Mean Corpuscular Hemoglobin Concent 32.6 % Red Cell Distribution Width 15.3 % Platelet Count 155 TH/MM3 Mean Platelet Volume 9.4 FL Neutrophils (%) (Auto) 77.4 % Lymphocytes (%) (Auto) 8.3 % Monocytes (%) (Auto) 9.7 % Eosinophils (%) (Auto) 3.9 % Basophils (%) (Auto) 0.7 % Neutrophils # (Auto) 6.2 TH/MM3 Lymphocytes # (Auto) 0.7 TH/MM3 Monocytes # (Auto) 0.8 TH/MM3 Eosinophils # (Auto) 0.3 TH/MM3 Basophils # (Auto) 0.1 TH/MM3 CBC Comment DIFF FINAL Differential Comment Prothrombin Time 13.2 SEC Prothromb Time International Ratio 1.3 RATIO Activated Partial Thromboplast Time 29.4 SEC Blood Urea Nitrogen 19 MG/DL Creatinine 1.35 MG/DL Random Glucose 103 MG/DL Calcium Level 8.6 MG/DL Magnesium Level 2.2 MG/DL Sodium Level 139 MEQ/L Potassium Level 4.4 MEQ/L Chloride Level 107 MEQ/L Carbon Dioxide Level 23.8 MEQ/L Anion Gap 8 MEQ/L Estimat Glomerular Filtration Rate 52 ML/MIN Total Creatine Kinase 65 U/L Troponin I LESS THAN 0.02 NG/ML B-Type Natriuretic Peptide 723 PG/ML Last Impressions Chest X-Ray 08/21/17 1111 Signed Impressions: CONCLUSION: Cardiomegaly with probable mild interstitial edema. Suspect tiny pleural effusions. I discussed the findings with my attending physician. I have also discussed this with Dr. Janell Davila, cardiothoracic surgeon technical operations manager as well as Dr. Steven , nurse discharge technical operations manager. Patient will be admitted observation to the hospitalist. They are both consult and follow with the patient during his stay. Diagnosis Primary Impression: Acute exacerbation of CHF (congestive heart failure) Qualified Codes: I50.33 - Acute on chronic diastolic (congestive) heart failure Additional Impressions: S/P CABG x 3 S/P AVR (aortic valve replacement) Admitting Information Admitting Physician Requests: Observation Condition: Stable DenisJana oconnor MARIUSZ August 21, 2017 11:27
[2017-08-21 11:45] LABS: AUTOMATED NEUTROPHIL # 6.2 TH/MM3 (1.8-7.7); BASOPHIL # 0.1 TH/MM3 (0-0.2); BASOPHIL % 0.7 % (0.0-2.0); EOSINOPHIL # 0.3 TH/MM3 (0-0.4); EOSINOPHIL % 3.9 % (0.0-4.0); HEMATOCRIT 33.3 % (39.0-51.0); HEMOGLOBIN 10.9 GM/DL (13.0-17.0); LYMPH % 8.3 % (9.0-44.0); LYMPHOCYTE # 0.7 TH/MM3 (1.0-4.8); MEAN CELL VOLUME 86.6 FL (80.0-100.0); MEAN CORPUSCULAR HEMOGLOBIN 28.2 PG (27.0-34.0); MEAN CORPUSCULAR HGB CONC 32.6 % (32.0-36.0); MEAN PLATELET VOLUME 9.4 FL (7.0-11.0); MONO % 9.7 % (0.0-8.0); MONOCYTE # 0.8 TH/MM3 (0-0.9); NEUT % 77.4 % (16.0-70.0); PLATELET COUNT 155 TH/MM3 (150-450); RED BLOOD COUNT 3.85 MIL/MM3 (4.50-5.90); RED CELL DISTRIBUTION WIDTH 15.3 % (11.6-17.2)
[2017-08-21 11:53] LABS: INTERNATIONAL NORMALIZED RATIO 1.3 RATIO; PROTHROMBIN TIME - PATIENT 13.2 SEC (9.8-11.6)
--- NOTE | 2017-08-21 11:54 | RADRPT ---
EXAM DATE: 08/21/2017 11:49 AM EDT AGE/SEX: 71 years / Male INDICATIONS: Shortness of breath for three days. CLINICAL DATA: This is the patient's initial encounter. Patient reports that signs and symptoms have been present for 3 days and indicates a pain score of 0/10. MEDICAL/SURGICAL HISTORY: None. CABG. Aortic valve replacement. [place] [facility] [place]. . FINDINGS: A single AP view of the chest demonstrates the cardiomegaly with probable mild interstitial edema. Esqueda spected tiny pleural effusions. Status post CABG. The cardiomediastinal contours are unremarkable. Osseous structures are intact. CONCLUSION: Cardiomegaly with probable mild interstitial edema. Suspect tiny pleural effusions. Electronically signed by: Rambo Mehta MD 08/21/2017 11:53 AM EDT
--- NOTE | 2017-08-21 12:00 | EKG ---
Date Performed: 08/21/2017 Time Performed: 11:13:35 PTAGE: 71 years EKG: Sinus rhythm WITH FIRST DEGREE AV BLOCK NONSPECIFIC T-WAVE ABNORMALITY ABNORMAL ECG PREVIOUS TRACING : 07/21/2017 07.54 Compared to previous tracing, heart rate has decreased. DOCTOR: Michael Villareal Interpretating Date/Time 08/21/2017 11:59:06
[2017-08-21 12:16] LABS: BICARBONATE 23.8 MEQ/L (21.0-32.0); BLOOD UREA NITROGEN 19 MG/DL (7-18); CALCIUM 8.6 MG/DL (8.5-10.1); CHLORIDE 107 MEQ/L (98-107); CREATININE 1.35 MG/DL (0.60-1.30); GLOMERULAR FILTRATION RATE 52 ML/MIN (>89); GLUCOSE,RANDOM 103 MG/DL (74-106); MAGNESIUM 2.2 MG/DL (1.5-2.5); SODIUM (NA) 139 MEQ/L (136-145)
[2017-08-21 12:23] LABS: TROPONIN I LESS THAN 0.02 NG/ML (0.02-0.05)
[2017-08-21] MEDS ORDERED: FUROSEMIDE 40 MG/4 ML VIAL IV PUSH ONE (14:30)
[2017-08-21] MEDS ORDERED: NALOXONE HCL 0.4 MG/ML AMP IV PUSH PRN (14:45)
[2017-08-21] MEDS ORDERED: SODIUM CHLORIDE 0.9% FLUSH 10 ML FLUSH IV FLUSH PRN (14:45)
[2017-08-21] MEDS ORDERED: FLUTICASONE PROPIONATE 50 MCG/ACT 16 GM NASAL SPRAY EACH NARE PRN (15:00)
[2017-08-21] MEDS ORDERED: ACETAMINOPHEN 325 MG TAB PO PRN ×2 (15:00)
--- NOTE | 2017-08-21 16:11 | HHI.HP ---
[facility] Primary Care Physician Tico Silva MD Admission Diagnosis acute exacerbation of CHF; s/p CABG x 3 s/p AVR Diagnoses: Chief Complaint: Shortness of breath Travel History International Travel<30 Days: No Contact w/Intl Traveler <30 Da: No Traveled to Known Affected Are: No History of Present Illness The patient is a 71-year-old male with a past medical history of CAD and atrial fibrillation who is presenting to the hospital with shortness of breath. The patient says he had bypass surgery and valve surgery at the end of June. He said he went home and noticed that his heart rate has been elevated in the 1 teens and 120s. He contacted his battery assembler and had a CAROLINA done with cardioversion. He was also started on metoprolol and amiodarone. He has been experiencing shortness of breath with minimal exertion. He has been having swelling in his lower extremities. He has noticed weight gain with the swelling in his lower extremities. He says he has sensitive bronchioles and he generally takes antibiotics when he feels short of breath and has a cough. He contacted his doctor who prescribed him a week of cefuroxime. He completed his antibiotics this morning. The patient has an oxygen monitor at home and noticed this morning that he went down to 89% with minimal exertion. He decided to come to the hospital for further evaluation. He says he feels a lot better after receiving the Lasix. He has been urinating a lot. He denies any prior history of heart failure. Review of Systems Except as stated in HPI: all other systems reviewed are Neg Past Family Social History Past Medical History CAD status post CABG 3 Atrial fibrillation Autoimmune hepatitis GERD Asthma Past Surgical History Aortic valve replacement Right knee arthroscopy Removal of precancerous lesions Allergies: Coded Allergies: No Known Allergies (Verified Allergy, Unknown, 08/21/17) Family History CAD Social History The patient quit smoking 10 years ago. He normally drinks a glass of wine a night but has not done so in about 6 weeks. Physical Exam Vital Signs Vital Signs Date Time Temp Pulse Resp B/P (MAP) Pulse Ox O2 Delivery O2 Flow Rate FiO2 08/21/17 14:47 97 Nasal Cannula 2.00 08/21/17 14:41 97.8 70 17 147/77 (100) 97 Nasal Cannula 2.00 08/21/17 13:38 69 16 139/67 (91) 96 Nasal Cannula 2.00 08/21/17 11:18 69 127/73 (91) 122/66 (84) 08/21/17 11:08 69 18 141/73 (95) 95 Room Air 08/21/17 10:50 97.7 72 28 128/71 (90) 92 Physical Exam GENERAL: This is a well-nourished, well-developed patient, in no apparent distress. SKIN: No rashes, ecchymoses or lesions. Cool and dry. HEAD: Atraumatic. Normocephalic. No temporal or scalp tenderness. EYES: Pupils equal round and reactive. Extraocular motions intact. No scleral icterus. No injection or drainage. ENT: Nose without bleeding, purulent drainage or septal hematoma. Throat without erythema, tonsillar hypertrophy or exudate. Uvula midline. Airway patent. NECK: Trachea midline. No JVD or lymphadenopathy. Supple, nontender, no meningeal signs. CARDIOVASCULAR: Regular rate and rhythm without murmurs, gallops, or rubs. RESPIRATORY: Clear to auscultation. Breath sounds equal bilaterally. No wheezes , rales, or rhonchi. GASTROINTESTINAL: Abdomen soft, non-tender, nondistended. No hepato-splenomegaly , or palpable masses. No guarding. MUSCULOSKELETAL: Trace to 1+ edema in the left lower extremity, trace edema in the right lower extremity. NEUROLOGICAL: Awake and alert. Cranial nerves II through XII intact. Motor and sensory grossly within normal limits. Five out of 5 muscle strength in all muscle groups. Normal speech. Laboratory Laboratory Tests Test 08/21/17 11:23 White Blood Count 8.0 Red Blood Count 3.85 Hemoglobin 10.9 Hematocrit 33.3 Mean Corpuscular Volume 86.6 Mean Corpuscular Hemoglobin 28.2 Mean Corpuscular Hemoglobin Concent 32.6 Red Cell Distribution Width 15.3 Platelet Count 155 Mean Platelet Volume 9.4 Neutrophils (%) (Auto) 77.4 Lymphocytes (%) (Auto) 8.3 Monocytes (%) (Auto) 9.7 Eosinophils (%) (Auto) 3.9 Basophils (%) (Auto) 0.7 Neutrophils # (Auto) 6.2 Lymphocytes # (Auto) 0.7 Monocytes # (Auto) 0.8 Eosinophils # (Auto) 0.3 Basophils # (Auto) 0.1 CBC Comment DIFF FINAL Differential Comment Prothrombin Time 13.2 Prothromb Time International Ratio 1.3 Activated Partial Thromboplast Time 29.4 Blood Urea Nitrogen 19 Creatinine 1.35 Random Glucose 103 Calcium Level 8.6 Magnesium Level 2.2 Sodium Level 139 Potassium Level 4.4 Chloride Level 107 Carbon Dioxide Level 23.8 Anion Gap 8 Estimat Glomerular Filtration Rate 52 Total Creatine Kinase 65 Troponin I LESS THAN 0.02 B-Type Natriuretic Peptide 723 Result Diagram: 08/21/17 1123 08/21/17 1123 Imaging Last Impressions Chest X-Ray 08/21/17 1111 Signed Impressions: CONCLUSION: Cardiomegaly with probable mild interstitial edema. Suspect tiny pleural effusions. Caprini VTE Risk Assessment Caprini VTE Risk Assessment: Mod/High Risk (score >= 2) Caprini Risk Assessment Model Point Value = 1 Point Value = 2 Point Value = 3 Point Value = 5 Age 41-60 Minor surgery BMI > 25 kg/m2 Swollen legs Varicose veins or History of unexplained or recurrent spontaneous Oral contraceptives or hormone replacement Sepsis (< 1 month) Serious lung disease, including pneumonia (< 1 month) Abnormal pulmonary function Acute myocardial infarction Congestive heart failure (< 1 month) History of inflammatory bowel disease Medical patient at bed rest Age 61-74 Arthroscopic surgery Major open surgery (> 45 min) Laparoscopic surgery (> 45 min) Malignancy Confined to bed (> 72 hours) Immobilizing plaster cast Central venous access Age >= 75 History of VTE Family history of VTE Factor V Leiden Prothrombin [id number] Lupus anticoagulant Anticardiolipin antibodies Elevated serum homocysteine Heparin-induced thrombocytopenia Other congenital or acquired thrombophilia Stroke (< 1 month) Elective arthroplasty Hip, pelvis, or leg fracture Acute spinal cord injury (< 1 month) Prophylaxis Regimen Total Risk Factor Score Risk Level Prophylaxis Regimen 0-1 Low Early ambulation 2 Moderate Order ONE of the following: *Sequential Compression Device (SCD) *Heparin 5000 units SQ BID 3-4 Higher Order ONE of the following medications: *Heparin 5000 units SQ TID *Enoxaparin/Lovenox 40 mg SQ daily (WT < 150 kg, CrCl > 30 mL/min) *Enoxaparin/Lovenox 30 mg SQ daily (WT < 150 kg, CrCl > 10-29 mL/min) *Enoxaparin/Lovenox 30 mg SQ BID (WT < 150 kg, CrCl > 30 mL/min) AND/OR *Sequential Compression Device (SCD) 5 or more Highest Order ONE of the following medications: *Heparin 5000 units SQ TID (Preferred with Epidurals) *Enoxaparin/Lovenox 40 mg SQ daily (WT < 150 kg, CrCl > 30 mL/min) *Enoxaparin/Lovenox 30 mg SQ daily (WT < 150 kg, CrCl > 10-29 mL/min) *Enoxaparin/Lovenox 30 mg SQ BID (WT < 150 kg, CrCl > 30 mL/min) AND *Sequential Compression Device (SCD) Assessment and Plan Assessment and Plan Acute CHF exacerbation, unknown type The pt recently had a CABG x 3 as well as AVR. He presents with lower extremity edema, dyspnea with minimal exertion and a cough. BNP is elevated. CXR with congestion. EKG without acute ischemia. Responded well to Lasix. - cardiology and CT surgery consulted by the ED. Await further recommendations. - continue with Lasix 20 mg IV daily for now. - telemetry. - trend trops. - follow Is and Os. Acute renal insufficiency Unsure of etiology. - monitor BMP while diuresing. - check a UA. A fib Recently cardioverted. In NSR. - continue Lopressor, amiodarone and Eliquis. - telemetry. Bronchitis Completed a one week course of cefuroxime on the day of admission. - oxygen and inhalers as needed. Anemia Likely post-surgical. - check iron studies, B12, folate levels and Hemoccult. - follow CBC. PPx: Eliquis Code Status Full Discussed Condition With Pt, Jana Mansfield Physician Certification 2 Midnight Certification Type: Admission for Inpatient Services Order for Inpatient Services The services are ordered in accordance with Medicare regulations or non- Medicare payer requirements, as applicable. In the case of services not specified as inpatient-only, they are appropriately provided as inpatient services in accordance with the 2-midnight benchmark. Estimated LOS (days): 2 days is the estimated time the patient will need to remain in the hospital, assuming treatment plan goals are met and no additional complications. Post-Hospital Plan: Home Rubén Martinez DO August 21, 2017 16:11
[2017-08-21 17:25] LABS: BILIRUBIN, URINE NEG (NEG); BLOOD, URINE NEG (NEG); GLUCOSE,URINE NEG (NEG); HYALINE CAST, URINE 2 /lpf (RARE); KETONE, URINE NEG (NEG); NITRITE,URINE NEG (NEG); PH, URINE 6.5 (5.0-8.5); URINE COLOR COLORLESS (YELLW/STRAW); URINE LEUKOCYTE ESTERASE NEG (NEG)
--- NOTE | 2017-08-21 17:38 | PD ---
Physical Exam Narrative I, Dr. Reed, have reviewed the advance practice practitioner's documentation and am in agreement, met with the patient face to face, made the diagnosis, and the medical decision making was done by me. *My assessment and Findings: Patient is a 71 year old male who comes in complaining of SOB. He says the SOB is worse on exertion and laying flat. Exam shows crackles at the bases and lower extremity edema. Data Data Last Documented VS Vital Signs Date Time Temp Pulse Resp B/P (MAP) Pulse Ox O2 Delivery O2 Flow Rate FiO2 08/21/17 14:41 97.8 70 17 147/77 (100) 97 Nasal Cannula 2.00 Orders Orders Electrocardiogram (08/21/17 11:11) Basic Metabolic Panel (Bmp) (08/21/17 11:11) B-Type Natriuretic Peptide (08/21/17 11:11) Ckmb (Isoenzyme) Profile (08/21/17 11:11) Complete Blood Count With Diff (08/21/17 11:11) Magnesium (Mg) (08/21/17 11:11) Prothrombin Time / Inr (Pt) (08/21/17 11:11) Act Partial Throm Time (Ptt) (08/21/17 11:11) Troponin I (08/21/17 11:11) Chest, Single Ap (08/21/17 11:11) Ecg Monitoring (08/21/17 11:11) Bilateral Bp Monitoring (08/21/17 11:11) Iv Access Insert/Monitor (08/21/17 11:11) Oximetry (08/21/17 11:11) Oxygen Administration (08/21/17 11:11) Sodium Chloride 0.9% Flush (Ns Flush) (08/21/17 11:15) Consult Cardiology (08/21/17 ) Consult Cardiothoracic Surgery (08/21/17 ) (Hub Use Only)Inp Phy Cons/Ref (08/21/17 ) Diet Heart Healthy (08/21/17 Lunch) (Hub Use Only)In Phy Cons/Ref (08/21/17 ) Furosemide Inj (Lasix Inj) (08/21/17 14:30) Admit Order (Ed Use Only) (08/21/17 14:29) Amiodarone (Cordarone) (08/21/17 21:00) Apixaban (Eliquis) (08/21/17 21:00) Aspirin Ec (Ecotrin Ec) (08/22/17 09:00) Cholecalciferol (Vitamin D3) (08/22/17 09:00) Fluticasone Antony Spr (Flonase Antony Spr) (08/21/17 15:00) Metoprolol Tartrate (Lopressor) (08/21/17 21:00) Sertraline (Zoloft) (08/21/17 21:00) Sucralfate (Carafate) (08/21/17 18:00) Pantoprazole (Protonix) (08/22/17 09:00) (Nf) Fish Oil-Cholecalciferol (Mathews-3 F (08/22/17 09:00) Multivitamin (Theragran) (08/22/17 09:00) Vitamin E (Vitamin E) (08/22/17 09:00) Admit To Inpatient (08/21/17 ) Vital Signs (Adult) Q4H (08/21/17 14:32) Activity Oob With Assistance (08/21/17 14:32) Press Reader / Telemetry .CONTINUOUS (08/21/17 14:32) Intake + Output CHASE.QSHIFT (08/21/17 14:32) Diet Heart Healthy (08/21/17 Dinner) Sodium Chloride 0.9% Flush (Ns Flush) (08/21/17 14:45) Sodium Chloride 0.9% Flush (Ns Flush) (08/21/17 21:00) Acetaminophen (Tylenol) (08/21/17 15:00) Comprehensive Metabolic Panel (08/22/17 06:00) Complete Blood Count With Diff (08/22/17 06:00) Resp Oxygen Antony C Titrat 1-4 L (08/21/17 ) Pt Request For Service (08/21/17 14:32) Case Management Consult (08/21/17 14:32) Acetaminophen (Tylenol) (08/21/17 15:00) Naloxone Inj (Narcan Inj) (08/21/17 14:45) Docusate Sodium-Senna (Kizzy-Colace) (08/21/17 21:00) Inpatient Certification (08/21/17 ) Troponin I (08/21/17 18:00) Troponin I (08/22/17 00:00) Labs Laboratory Tests Test 08/21/17 11:23 White Blood Count 8.0 TH/MM3 Red Blood Count 3.85 MIL/MM3 Hemoglobin 10.9 GM/DL Hematocrit 33.3 % Mean Corpuscular Volume 86.6 FL Mean Corpuscular Hemoglobin 28.2 PG Mean Corpuscular Hemoglobin Concent 32.6 % Red Cell Distribution Width 15.3 % Platelet Count 155 TH/MM3 Mean Platelet Volume 9.4 FL Neutrophils (%) (Auto) 77.4 % Lymphocytes (%) (Auto) 8.3 % Monocytes (%) (Auto) 9.7 % Eosinophils (%) (Auto) 3.9 % Basophils (%) (Auto) 0.7 % Neutrophils # (Auto) 6.2 TH/MM3 Lymphocytes # (Auto) 0.7 TH/MM3 Monocytes # (Auto) 0.8 TH/MM3 Eosinophils # (Auto) 0.3 TH/MM3 Basophils # (Auto) 0.1 TH/MM3 CBC Comment DIFF FINAL Differential Comment Prothrombin Time 13.2 SEC Prothromb Time International Ratio 1.3 RATIO Activated Partial Thromboplast Time 29.4 SEC Blood Urea Nitrogen 19 MG/DL Creatinine 1.35 MG/DL Random Glucose 103 MG/DL Calcium Level 8.6 MG/DL Magnesium Level 2.2 MG/DL Sodium Level 139 MEQ/L Potassium Level 4.4 MEQ/L Chloride Level 107 MEQ/L Carbon Dioxide Level 23.8 MEQ/L Anion Gap 8 MEQ/L Estimat Glomerular Filtration Rate 52 ML/MIN Total Creatine Kinase 65 U/L Troponin I LESS THAN 0.02 NG/ML B-Type Natriuretic Peptide 723 PG/ML MDM Supervised Visit with YANIQUE: Yes Narrative Course Patient's oxygen saturation drops in the 80s on room air. Placed on 2 L via NC. CXR shows evidence of pulmonary congestion. Dr. Davila and Mildred consulted. Admitted for further management. Diagnosis Primary Impression: Acute exacerbation of CHF (congestive heart failure) Qualified Codes: I50.33 - Acute on chronic diastolic (congestive) heart failure Additional Impressions: S/P AVR (aortic valve replacement) S/P CABG x 3 Admitting Information Admitting Physician Requests: Admit Condition: Stable Alejandra Reed MD August 21, 2017 17:38
[2017-08-21] MEDS: SUCRALFATE 1 GM TAB PO SCH ×2 (18:41→21:00)
--- NOTE | 2017-08-21 20:47 | MB ---
cc: Emory Wilson MD DATE: 08/21/2017 THE PATIENT'S PERMASTONE MECHANIC: Dr. Gaxiloa REFERRING PHYSICIAN: Dr. Latosha Patrick PRIMARY CARE PHYSICIAN: Dr. Tico Silva REASON FOR CONSULTATION: I was asked to evaluate the patient with progressive shortness of breath, status post CABG and AVR. HISTORY OF PRESENT ILLNESS: Herbert Cox is a pleasant 71-year-old gentleman with a past medical history significant for coronary artery disease and aortic valve disease, status post recent CABG x 3 and bioprosthetic aortic valve replacement about 5 weeks ago. He is also status post [place] and DC cardioversion for persistent atrial fibrillation. Since discharge over the past week, he has noted progressive lower extremity swelling and shortness of breath. He has noted progressive dyspnea on exertion with his daily activities. He was placed on oral antibiotics for possible URI. However, his symptoms progressively increased, prompting emergency room evaluation. In the emergency room, his O2 saturation was noted to be in the mid 80s. Chest x-ray showed congestive heart failure. STUDY: ECG shows sinus rhythm with a heart rate 67 beats per minute, normal axis and intervals, diffuse nonspecific ST-T abnormalities. MEDICATIONS PRIOR TO ADMISSION: Reviewed and noted in MAR. ALLERGIES: NO KNOWN DRUG ALLERGIES. PAST MEDICAL HISTORY: As above. Additionally, he has history of gastroesophageal reflux disease, autoimmune hepatitis, asthma and postoperative atrial fibrillation. PAST SURGICAL HISTORY: Status post recent bioprosthetic aortic valve replacement and CABG x 3, status post right knee arthroscopy. FAMILY HISTORY: Positive for coronary artery disease. SOCIAL HISTORY: He stopped smoking 10 years ago. He drinks wine, 1 glass nightly. REVIEW OF SYSTEMS: As above, 12-point review of systems reviewed and noted. PHYSICAL EXAMINATION: VITAL SIGNS: Temperature 97.8, pulse 70, respirations 17, blood pressure 147/77, O2 saturation 2 liters nasal cannula, 97%. HEENT: He is anicteric, PERRLA. No xanthelasmas. NECK: Increased JVD. No carotid bruits. LUNGS: With bibasilar crackles. HEART: Regular rate and rhythm, 2/6 systolic murmur, left upper sternal border. ABDOMEN: Soft and nontender. EXTREMITIES: Have 2+ pedal edema. LABORATORY DATA: WBC 8.0, hemoglobin 10.9, hematocrit is 33.3, platelet count is 155,000. INR is 1.3. BUN 19, creatinine 1.35. Sodium 139, potassium 4.4. Troponin less than 0.02. IMAGING: CHEST X-RAY: Cardiomegaly with mild interstitial edema. IMPRESSION: 1. Congestive heart failure due to systolic versus diastolic dysfunction. 2. Coronary artery disease, status post recent coronary artery bypass grafting x 3. 3. Status post recent bioprosthetic aortic valve replacement. 4. Status post direct current cardioversion, remains in sinus rhythm. 5. Lower extremity edema. PLAN: 1. Medications reviewed. He has been continued on aspirin, amiodarone, Eliquis, metoprolol. 2. Continue IV Lasix diuresis as systolic blood pressure and creatinine tolerates. 3. Echocardiogram, reevaluate ventricular function and prosthetic valve function. 4. Start atorvastatin 40 mg daily. 5. Start lisinopril [address] Gaxiola will return in a.m. Thank you for allowing me to contribute to the patient's care. Thank you for this consultation. MD PAMELA Licea/SURESH , 06:45 PM , 08:46 PM
[2017-08-21] MEDS: DOCUSATE SODIUM 50 MG/SENNA 8.6 MG TAB PO SCH (21:00)
[2017-08-21 21:08] LABS: % SATURATION IRON PROFILE 9.1 % (20-50); FERRITIN 101 NG/ML (26-388); IRON (FE) 29 MCG/DL (65-175); TOTAL IRON BINDING CAPACITY 318 MCG/DL (250-450); TROPONIN I LESS THAN 0.02 NG/ML (0.02-0.05)
[2017-08-21 21:12] LABS: FOLATE GREATER THAN 20.0 NG/ML (3.1-17.5)
[2017-08-21] MEDS: APIXABAN 5 MG TABLET PO SCH (21:31)
[2017-08-21] MEDS: AMIODARONE 200 MG TAB PO SCH (21:31)
[2017-08-21] MEDS: METOPROLOL TARTRATE 25 MG TAB PO SCH (21:31)
[2017-08-21] MEDS: SERTRALINE HCL 50 MG TAB PO SCH (21:31)
[2017-08-21] MEDS: SODIUM CHLORIDE 0.9% FLUSH 10 ML FLUSH IV FLUSH SCH (21:32)
[2017-08-22] VITALS (16 sets, daily range): BP systolic 103–134; BP diastolic 53–65; PULSE 60–78; RESP 16–22; TEMP 97.7–98.6; O2SAT 91–96
[2017-08-22 00:54] LABS: AUTOMATED NEUTROPHIL # 7.5 TH/MM3 (1.8-7.7); BASOPHIL # 0.1 TH/MM3 (0-0.2); BASOPHIL % 0.7 % (0.0-2.0); EOSINOPHIL # 0.4 TH/MM3 (0-0.4); EOSINOPHIL % 4.1 % (0.0-4.0); HEMATOCRIT 33.6 % (39.0-51.0); LYMPH % 9.7 % (9.0-44.0); MEAN CELL VOLUME 85.3 FL (80.0-100.0); MEAN CORPUSCULAR HGB CONC 32.8 % (32.0-36.0); MEAN PLATELET VOLUME 8.9 FL (7.0-11.0); MONO % 9.3 % (0.0-8.0); MONOCYTE # 0.9 TH/MM3 (0-0.9); NEUT % 76.2 % (16.0-70.0); PLATELET COUNT 177 TH/MM3 (150-450); RED BLOOD COUNT 3.95 MIL/MM3 (4.50-5.90); RED CELL DISTRIBUTION WIDTH 15.5 % (11.6-17.2); WHITE BLOOD COUNT 9.9 TH/MM3 (4.0-11.0)
[2017-08-22 01:15] LABS: ALBUMIN 2.6 GM/DL (3.4-5.0); AST (GOT) 22 U/L (15-37); BICARBONATE 27.6 MEQ/L (21.0-32.0); BLOOD UREA NITROGEN 21 MG/DL (7-18); CALCIUM 8.4 MG/DL (8.5-10.1); CHLORIDE 104 MEQ/L (98-107); CREATININE 1.42 MG/DL (0.60-1.30); GLOMERULAR FILTRATION RATE 49 ML/MIN (>89); GLUCOSE,RANDOM 94 MG/DL (74-106); SODIUM (NA) 141 MEQ/L (136-145)
[2017-08-22 01:18] LABS: ALKALINE PHOSPHATASE 232 U/L (45-117); ALT (GPT) 38 U/L (12-78); TOTAL BILIRUBIN ADULT 0.4 MG/DL (0.2-1.0); TOTAL PROTEIN 6.8 GM/DL (6.4-8.2)
[2017-08-22] MEDS ORDERED: FISH OIL CHOLECALCIFEROL PO SCH (09:00)
[2017-08-22] MEDS ORDERED: FUROSEMIDE 20 MG/2 ML VIAL IV PUSH SCH (09:00)
[2017-08-22] MEDS: CHOLECALCIFEROL (VIT D3) 5000 UNIT CAP PO SCH (09:07)
[2017-08-22] MEDS: VITAMIN E 400 UNIT CAP PO SCH (09:07)
[2017-08-22] MEDS: SUCRALFATE 1 GM TAB PO SCH ×4 (09:07→20:22)
[2017-08-22] MEDS: MULTIVITAMIN TAB PO SCH (09:08)
[2017-08-22] MEDS: APIXABAN 5 MG TABLET PO SCH ×2 (09:08→21:28)
[2017-08-22] MEDS: PANTOPRAZOLE SOD 40 MG DELAYED RELEASE TAB PO SCH (09:08)
[2017-08-22] MEDS: ASPIRIN EC 81 MG TABEC PO SCH (09:08)
[2017-08-22] MEDS: METOPROLOL TARTRATE 25 MG TAB PO SCH ×2 (09:08→21:29)
[2017-08-22] MEDS: AMIODARONE 200 MG TAB PO SCH ×2 (09:08→21:29)
[2017-08-22] MEDS: DOCUSATE SODIUM 50 MG/SENNA 8.6 MG TAB PO SCH ×2 (09:08→21:00)
[2017-08-22] MEDS: SODIUM CHLORIDE 0.9% FLUSH 10 ML FLUSH IV FLUSH SCH ×2 (09:09→21:29)
--- NOTE | 2017-08-22 09:57 | HHI.PR ---
Subjective Remarks in no acute distress. sob has improved. no chest pain. Objective Vitals Vital Signs Date Time Temp Pulse Resp B/P (MAP) Pulse Ox O2 Delivery O2 Flow Rate FiO2 08/22/17 08:00 97.7 73 22 134/65 (88) 92 08/22/17 04:00 Nasal Cannula 2.00 08/22/17 04:00 98.5 70 20 120/63 (82) 95 08/22/17 03:58 67 08/22/17 00:00 98.2 75 20 126/64 (84) 94 08/22/17 00:00 Nasal Cannula 2.00 08/21/17 23:58 71 08/21/17 20:00 98.0 83 20 130/60 (83) 94 08/21/17 20:00 Nasal Cannula 2.00 08/21/17 19:58 82 08/21/17 17:30 98.2 76 17 142/67 (92) 94 08/21/17 17:25 08/21/17 14:47 97 Nasal Cannula 2.00 08/21/17 14:41 97.8 70 17 147/77 (100) 97 Nasal Cannula 2.00 08/21/17 13:38 69 16 139/67 (91) 96 Nasal Cannula 2.00 08/21/17 11:18 69 127/73 (91) 122/66 (84) 08/21/17 11:08 69 18 141/73 (95) 95 Room Air 08/21/17 10:50 97.7 72 28 128/71 (90) 92 I/O 08/21/17 08/21/17 08/21/17 08/22/17 08/22/17 08/22/17 07:00 15:00 23:00 07:00 15:00 23:00 Intake Total 730 ml Output Total 400 ml 1730 ml 900 ml Balance -400 ml -1730 ml -170 ml Intake Oral 730 ml Output Urine Total 400 ml 1730 ml 900 ml # Voids 1 2 1 # Bowel Movements 0 1 Result Diagram: 08/22/17 0045 08/22/17 0045 Imaging Last Impressions Chest X-Ray 08/21/17 1111 Signed Impressions: CONCLUSION: Cardiomegaly with probable mild interstitial edema. Suspect tiny pleural effusions. Objective Remarks GENERAL: This is a well-nourished, well-developed patient, in no apparent distress. CARDIOVASCULAR: Regular rate and regular rhythm without murmurs, gallops, or rubs. RESPIRATORY: Clear to auscultation. Breath sounds equal bilaterally. No wheezes , rales, or rhonchi. GASTROINTESTINAL: Abdomen soft, non-tender, nondistended. Normal, active bowel sounds MUSCULOSKELETAL: Extremities without clubbing, cyanosis, or edema. NEURO: Alert & Oriented x4 to person, place, time, situation. Moves all ext x4 Medications and IVs Inpatient Medications Acetaminophen (Tylenol) 650 mg Q6H PRN PO PAIN SCALE 1 TO 2; Start 08/21/17 at 15:00 Amiodarone HCl (Cordarone) 200 mg Q12HR PO Last administered on 08/22/17 09:08 ; Start 08/21/17 at 21:00 Apixaban (Eliquis) 5 mg BID PO Last administered on 08/22/17 09:08; Start at 21:00 Aspirin (Ecotrin Ec) 81 mg DAILY PO Last administered on 08/22/17 09:08; Start 08/22/17 at 09:00 Cholecalciferol (Vitamin D3) 5,000 units DAILY PO Last administered on 09:07; Start 08/22/17 at 09:00 Fluticasone Propionate (Flonase Antony Spr) 1 spray BID PRN EACH NARE Allergy Management; Start 08/21/17 at 15:00 Furosemide (Lasix Inj) 20 mg DAILY IV PUSH Last administered on 08/22/17 09:09 ; Start 08/22/17 at 09:00 Metoprolol Tartrate (Lopressor) 25 mg BID PO Last administered on 08/22/17 09: 08; Start 08/21/17 at 21:00 Multivitamins (Theragran) 1 tab DAILY PO Last administered on 08/22/17 09:08; Start 08/22/17 at 09:00 Naloxone HCl (Narcan Inj) 0.4 mg UNSCH PRN IV PUSH SEE LABEL COMMENTS; Start at 14:45 Non-Formulary Medication 2 cap DAILY PO ; Start 08/22/17 at 09:00; Stop at 09:00; Status DC Pantoprazole Sodium (Protonix) 40 mg DAILY PO Last administered on 08/22/17 09 :08; Start 08/22/17 at 09:00 Senna/Docusate Sodium (Kizzy-Colace) 1 tab BID PO Last administered on 09:08; Start 08/21/17 at 21:00 Sertraline HCl (Zoloft) 50 mg HS PO Last administered on 08/21/17 21:31; Start 08/21/17 at 21:00 Sodium Chloride (NS Flush) 2 ml BID IV FLUSH Last administered on 08/22/17 09: 09; Start 08/21/17 at 21:00 Sucralfate (Carafate) 1 gm QID PO Last administered on 08/22/17 09:07; Start 08/21/17 at 18:00 Vitamin E (Vitamin E) 400 units DAILY PO Last administered on 08/22/17 09:07; Start 08/22/17 at 09:00 A/P Assessment and Plan Acute CHF exacerbation, unknown type The pt recently had a CABG x 3 as well as AVR. He presents with lower extremity edema, dyspnea with minimal exertion and a cough. BNP is elevated. CXR with congestion. EKG without acute ischemia. Responded well to Lasix. - cardiology and CT surgery consulted by the ED. Await further recommendations. - continue with Lasix 20 mg IV daily for now. -echo pending. - telemetry. - follow Is and Os. Acute renal insufficiency Unsure of etiology. - monitor BMP while diuresing. A fib Recently cardioverted. In NSR. - continue Lopressor, amiodarone and Eliquis. - telemetry. Bronchitis Completed a one week course of cefuroxime on the day of admission. - oxygen and inhalers as needed. Anemia Likely post-surgical. - follow CBC. PPx: Latosha Person MD August 22, 2017 09:57
--- NOTE | 2017-08-22 16:46 | MB ---
cc: Yue Amaral Jacqueline R ARNP DATE: 08/22/2017 HISTORY OF PRESENT ILLNESS: A 71-year-old male, a patient of Dr. Gaxiola, who underwent aortic valve replacement with a 23-mm Trifecta tissue valve, coronary artery bypass graft x3, JORGE to the LAD, saphenous vein graft to the ramus intermedius, saphenous vein graft to the PDA. Post-CAROLINA showed a well-seated aortic valve, no perivalvular leak on 07/20/2017. Postop complications included paroxysmal atrial fibrillation where he underwent successful cardioversion, was also placed on Eliquis. He presented with progressive lower extremity swelling and some shortness of breath, worsening dyspnea on exertion that occurred on a daily basis with daily activities. He was placed on an oral antibiotic for possible upper respiratory infections. Unfortunately, his symptoms worsened. His O2 saturation was in the mid 80s and his chest x-ray showed evidence of heart failure and tiny pleural effusions. BNP was 700. Troponins were negative. We were consulted as courtesy. Repeat 2-D echo is pending. Currently, the patient is on room air. He is feeling much better after diuresis. PAST MEDICAL HISTORY: Includes aortic valve stenosis, coronary artery disease, hypothyroidism, hypertension, hard of hearing. gastroesophageal reflux disease, autoimmune hepatitis, asthma, postop atrial fibrillation. PAST SURGICAL HISTORY: Include the aortic valve replacement with a tricuspid tissue valve, coronary artery bypass graft x3, history of right knee arthroscopy. ALLERGIES: NO KNOWN ALLERGIES HOME MEDICATIONS: 1. Albuterol. 2. Eliquis 3. Amiodarone 4. Praluent 5. [place] Fish oil. 3. Metoprolol. 4. Aspirin. 5. Zoloft. 6. Flonase. 7. Carafate. 8. Nexium. FAMILY HISTORY: Positive for coronary artery disease. SOCIAL HISTORY: Drinks occasional glass of wine. Quit smoking 10 years ago. The patient is . REVIEW OF SYSTEMS: As above in HPI, other 12 systems unremarkable. PHYSICAL EXAMINATION: VITAL SIGNS: Blood pressure 103/60, heart rate of 68, temperature max 97.7. GENERAL: Awake, alert, in no acute distress. HEENT: Head is normocephalic, atraumatic. Pupils equal and reactive. Oral mucosa pink, moist. NECK: Supple. No JVD HEART: Sounds S1, S2. 2/6 systolic murmur, left sternal border. Regular rate and rhythm. No audible rubs or gallops. LUNGS: Slightly diminished in the bases, faint bibasilar crackles. EXTREMITIES: Trace edema with good distal pulses. LABORATORY DATA: Shows hemoglobin 11, hematocrit of 34. White cell count of 9.9, platelet count of 177. Sodium 141, potassium 3.1, BUN 21, creatinine 1.42. The BNP was 723, negative troponins x3. INR 1.3. Urinalysis was unremarkable. IMAGING STUDIES: Chest x-ray as above. ASSESSMENT AND PLAN: 1. This is a patient status post recent aortic valve replacement with a Trifecta valve tissue. 2. Coronary artery disease, IS status post coronary artery bypass graft x3. 2-Dimensional echocardiogram is pending to evaluate systolic versus diastolic dysfunction. 3. Postop atrial fibrillation post-cardioversion, remains in normal sinus rhythm. 4. Lower extremity edema improved after IV Lasix. At this time, we will follow accordingly. Continue current medications including angiotensin cardioverting enzymes inhibitor and await the echocardiogram at this time. MARIUSZ Hilario MD JRT/ , 04:22 PM , 04:46 PM
--- NOTE | 2017-08-22 17:49 | ECHRPT ---
Indication: S/P CABG/AVR CONCLUSIONS The left ventricular systolic function is normal with an estimated ejection fraction in the range of 55-60%. Mild mitral valve regurgitation. There is mild to moderate tricuspid valve regurgitation. Trivial pulmonary valve regurgitation. There is a bioprosthetic aortic valve replacement Moderate eccentric aortic valvular regurgitation against the septum BP: 134 / 65 HR: 88 Rhythm: Sinus MEASUREMENTS (Male / Female) Normal Values Technical Quality:Fair 2D ECHO LV Diastolic Diameter PLAX 4.8 cm 4.2 - 5.9 / 3.9 - 5.3 cm LV Systolic Diameter PLAX 2.9 cm IVS Diastolic Thickness 1.1 cm 0.6 - 1.0 / 0.6 - 0.9 cm LVPW Diastolic Thickness 1.1 cm 0.6 - 1.0 / 0.6 - 0.9 cm LV Relative Wall Thickness 0.4 RV Internal Dim ED PLAX 2.6 cm LVOT Diameter 2.0 cm Aortic Root Diameter 3.0 cm LA Systolic Diameter LX 4.6 cm 3.0 - 4.0 / 2.7 - 3.8 cm M-MODE AV Cusp Separation MM 1.7 cm DOPPLER AV Peak Velocity 199.0 cm/s AV Peak Gradient 15.8 mmHg AV Mean Gradient 7.0 mmHg AV Velocity Time Integral 35.4 cm LVOT Peak Velocity 81.2 cm/s LVOT Peak Gradient 2.6 mmHg LVOT Velocity Time Integral 13.5 cm LVOT Cardiac Index 2002.7 cm/minm AV Area Cont Eq vti 1.2 cm AV Area Cont Eq pk 1.3 cm Mitral E Point Velocity 115.0 cm/s Mitral A Point Velocity 65.6 cm/s Mitral E to A Ratio 1.8 LV E' Lateral Velocity 9.5 cm/s Mitral E to LV E' Lateral Ratio 12.1 LV E' Septal Velocity 5.5 cm/s Mitral E to LV E' Septal Ratio 20.8 TR Peak Velocity 274.0 cm/s TR Peak Gradient 30.0 mmHg Right Atrial Pressure 10.0 mmHg Pulmonary Artery Systolic Pressu 40.0 mmHg Right Ventricular Systolic Press 40.0 mmHg PV Peak Velocity 47.4 cm/s PV Peak Gradient 0.9 mmHg FINDINGS LEFT VENTRICLE Normal left ventricular size. Wall thickness is measured at the upper limits of normal. The left ventricular systolic function is normal with an estimated ejection fraction in the range of 55-60%. There is abnormal (paradoxical) septal motion consistent with postoperative state. RIGHT VENTRICLE Normal right ventricular size and systolic function. LEFT ATRIUM The left atrial size is [id number] dilated. RIGHT ATRIUM The right atrial size is mildly dilated. ATRIAL SEPTUM No atrial level shunt is demonstrated by color flow Doppler interrogation. AORTA The aortic root and proximal ascending aorta are normal in size on limited imaging. MITRAL VALVE Moderate thickening of the mitral valve leaflets. Mild mitral annular calcification. Mild mitral valve regurgitation. AORTIC VALVE There is a bioprosthetic aortic valve replacement No stenosis noted (peak grad 16, mean grad 7) Moderate eccentric valvular regurgitation against the septum TRICUSPID VALVE There is mild to moderate tricuspid valve regurgitation. The estimated pulmonary arterial pressure is 40 mmHg. PULMONARY VALVE Trivial pulmonary valve regurgitation. VESSELS The inferior vena cava is normal in size. PERICARDIUM No pericardial effusion. Probable small left pleural effusion Rey Huang DO (Electronically Signed) Final Date:22 Aug 2017 17:48
[2017-08-22] MEDS: SERTRALINE HCL 50 MG TAB PO SCH (21:29)
[2017-08-22] MEDS ORDERED: POTASSIUM CHLORIDE 20 MEQ CONTROLLED RELEASE TAB PO SCH (22:00)
[2017-08-23] VITALS (27 sets, daily range): BP systolic 102–138; BP diastolic 52–70; PULSE 59–82; RESP 16–19; TEMP 97.5–98.6; O2SAT 93–96
[2017-08-23 05:26] LABS: BICARBONATE 27.1 MEQ/L (21.0-32.0); CALCIUM 8.3 MG/DL (8.5-10.1); CREATININE 1.29 MG/DL (0.60-1.30)
--- NOTE | 2017-08-23 07:45 | HHI.PR ---
Subjective Remarks in no acute distress. however reportedly his pulse-ox went down to 85% and is currently on three liters of oxygen via N/C. has occasional cough. no fever. d/w the RN. Objective Vitals Vital Signs Date Time Temp Pulse Resp B/P (MAP) Pulse Ox O2 Delivery O2 Flow Rate FiO2 08/23/17 07:00 67 08/23/17 06:08 59 08/23/17 05:10 68 08/23/17 04:06 68 08/23/17 03:58 98.3 70 121/59 (79) 96 08/23/17 03:17 66 08/23/17 02:00 66 08/23/17 01:00 66 08/23/17 00:00 70 08/22/17 23:50 98.6 73 127/60 (82) 96 08/22/17 23:00 70 08/22/17 22:00 70 08/22/17 21:00 74 08/22/17 20:00 76 08/22/17 19:00 98.2 78 115/59 (77) 92 08/22/17 19:00 92 Room Air 08/22/17 19:00 60 08/22/17 18:00 75 08/22/17 17:00 78 08/22/17 16:00 73 08/22/17 15:00 94 Room Air 08/22/17 15:00 73 08/22/17 15:00 98.6 72 16 108/53 (71) 94 08/22/17 12:00 97.7 67 18 103/58 (73) 93 08/22/17 10:06 91 Nasal Cannula 21 08/22/17 08:00 72 08/22/17 08:00 97.7 73 22 134/65 (88) 92 I/O 08/22/17 08/22/17 08/22/17 08/23/17 08/23/17 08/23/17 07:00 15:00 23:00 07:00 15:00 23:00 Intake Total 730 ml 480 ml 240 ml Output Total 900 ml 200 ml Balance -170 ml 480 ml 40 ml Intake Oral 730 ml 480 ml 240 ml Output Urine Total 900 ml 200 ml # Voids 1 1 # Bowel Movements 1 1 Result Diagram: 08/22/17 0045 08/23/17 0420 Imaging Last Impressions Chest X-Ray 08/21/17 1111 Signed Impressions: CONCLUSION: Cardiomegaly with probable mild interstitial edema. Suspect tiny pleural effusions. Objective Remarks GENERAL: This is a well-nourished, well-developed patient, in no apparent distress. CARDIOVASCULAR: Regular rate and regular rhythm without murmurs, gallops, or rubs. RESPIRATORY: Clear to auscultation. Breath sounds equal bilaterally. No wheezes , rales, or rhonchi. GASTROINTESTINAL: Abdomen soft, non-tender, nondistended. Normal, active bowel sounds MUSCULOSKELETAL: Extremities without clubbing, cyanosis, or edema. NEURO: Alert & Oriented x4 to person, place, time, situation. Moves all ext x4 Medications and IVs Inpatient Medications Acetaminophen (Tylenol) 650 mg Q6H PRN PO PAIN SCALE 1 TO 2; Start 08/21/17 at 15:00 Amiodarone HCl (Cordarone) 200 mg Q12HR PO Last administered on 08/22/17at 21:29 ; Start 08/21/17 at 21:00 Apixaban (Eliquis) 5 mg BID PO Last administered on 08/22/17at 21:28; Start at 21:00 Aspirin (Ecotrin Ec) 81 mg DAILY PO Last administered on 08/22/17at 09:08; Start 08/22/17 at 09:00 Cholecalciferol (Vitamin D3) 5,000 units DAILY PO Last administered on at 09:07; Start 08/22/17 at 09:00 Fluticasone Propionate (Flonase Antony Spr) 1 spray BID PRN EACH NARE Allergy Management; Start 08/21/17 at 15:00 Furosemide (Lasix Inj) 20 mg DAILY IV PUSH Last administered on 08/22/17at 09:09 ; Start 08/22/17 at 09:00; Stop 08/23/17 at 00:41; Status DC Furosemide (Lasix) 20 mg DAILY PO ; Start 08/23/17 at 09:00 Levofloxacin (Levaquin) 500 mg DAILY PO ; Start 08/23/17 at 09:00 Metoprolol Tartrate (Lopressor) 25 mg BID PO Last administered on 08/22/17at 21: 29; Start 08/21/17 at 21:00 Multivitamins (Theragran) 1 tab DAILY PO Last administered on 08/22/17 09:08; Start 08/22/17 at 09:00 Naloxone HCl (Narcan Inj) 0.4 mg UNSCH PRN IV PUSH SEE LABEL COMMENTS; Start at 14:45 Non-Formulary Medication 2 cap DAILY PO ; Start 08/22/17 at 09:00; Stop at 09:00; Status DC Pantoprazole Sodium (Protonix) 40 mg DAILY PO Last administered on 08/22/17 09 :08; Start 08/22/17 at 09:00 Potassium Chloride (KCl) 10 meq DAILY PO ; Start 08/23/17 at 09:00 Senna/Docusate Sodium (Kizzy-Colace) 1 tab BID PO Last administered on 09:08; Start 08/21/17 at 21:00 Sertraline HCl (Zoloft) 50 mg HS PO Last administered on 08/22/17 21:29; Start 08/21/17 at 21:00 Sodium Chloride (NS Flush) 2 ml BID IV FLUSH Last administered on 08/22/17 21: 29; Start 08/21/17 at 21:00 Sucralfate (Carafate) 1 gm QID PO Last administered on 08/22/17 20:22; Start 08/21/17 at 18:00 Vitamin E (Vitamin E) 400 units DAILY PO Last administered on 08/22/17 09:07; Start 08/22/17 at 09:00 A/P Assessment and Plan Acute CHF exacerbation, unknown type The pt recently had a CABG x 3 as well as AVR. He presents with lower extremity edema, dyspnea with minimal exertion and a cough. BNP is elevated. CXR with congestion. EKG without acute ischemia. Responded well to Lasix. - cardiology and CT surgery consults appreciated. - continue lasix. -will try to taper down the oxygen; might need walk test before discharge. -continue aspirin, BB. -echo pending. - telemetry. - follow Is and Os. Acute renal insufficiency improved. - monitor BMP while diuresing. A fib Recently cardioverted. In NSR. - continue Lopressor, amiodarone and Eliquis. - telemetry. Bronchitis Completed a one week course of cefuroxime on the day of admission. -continue levaquin -follow the cultures. Anemia Likely post-surgical. - follow CBC. PPx: Elidella Discharge Planning dc home within the next one-two days- pending clinical improvement. might need walk test before discharge. Latosha Patrick MD August 23, 2017 07:45
--- NOTE | 2017-08-23 08:14 | PD.CARD.PN ---
Subjective Subjective Remarks Covering for Dr. Gaxiola Feeling better. Less SOB, no CP. Still on supplemental O2. No cough. No edema. Objective Medications Current Medications Medications (Trade) Dose Ordered Sig/Balaji Route Start Time Stop Time Status Last Admin (Cordarone) 200 mg Q12HR PO 08/21/17 21:00 08/22/17 21:29 (Eliquis) 5 mg BID PO 08/21/17 21:00 08/22/17 21:28 (Ecotrin Ec) 81 mg DAILY PO 08/22/17 09:00 08/22/17 09:08 (Vitamin D3) 5,000 units DAILY PO 08/22/17 09:00 08/22/17 09:07 (Flonase Antony Spr) 1 spray BID PRN EACH NARE 08/21/17 15:00 (Lopressor) 25 mg BID PO 08/21/17 21:00 08/22/17 21:29 (Zoloft) 50 mg HS PO 08/21/17 21:00 08/22/17 21:29 (Carafate) 1 gm QID PO 08/21/17 18:00 08/22/17 20:22 (Protonix) 40 mg DAILY PO 08/22/17 09:00 08/22/17 09:08 (Theragran) 1 tab DAILY PO 08/22/17 09:00 08/22/17 09:08 (Vitamin E) 400 units DAILY PO 08/22/17 09:00 08/22/17 09:07 (NS Flush) 2 ml UNSCH PRN IV FLUSH 08/21/17 14:45 (NS Flush) 2 ml BID IV FLUSH 08/21/17 21:00 08/22/17 21:29 (Tylenol) 650 mg Q4H PRN PO 08/21/17 15:00 (Tylenol) 650 mg Q6H PRN PO 08/21/17 15:00 (Narcan Inj) 0.4 mg UNSCH PRN IV PUSH 08/21/17 14:45 (Kizzy-Colace) 1 tab BID PO 08/21/17 21:00 08/22/17 09:08 (Levaquin) 500 mg DAILY PO 08/23/17 09:00 (Lasix) 20 mg DAILY PO 08/23/17 09:00 (KCl) 10 meq DAILY PO 08/23/17 09:00 Vital Signs / I&O Vital Signs Date Time Temp Pulse Resp B/P (MAP) Pulse Ox O2 Delivery O2 Flow Rate FiO2 08/23/17 07:00 67 08/23/17 06:08 59 08/23/17 05:10 68 08/23/17 04:06 68 08/23/17 03:58 98.3 70 121/59 (79) 96 08/23/17 03:17 66 08/23/17 02:00 66 08/23/17 01:00 66 08/23/17 00:00 70 08/22/17 23:50 98.6 73 127/60 (82) 96 08/22/17 23:00 70 08/22/17 22:00 70 08/22/17 21:00 74 08/22/17 20:00 76 08/22/17 19:00 98.2 78 115/59 (77) 92 08/22/17 19:00 92 Room Air 08/22/17 19:00 60 08/22/17 18:00 75 08/22/17 17:00 78 08/22/17 16:00 73 08/22/17 15:00 94 Room Air 08/22/17 15:00 73 08/22/17 15:00 98.6 72 16 108/53 (71) 94 08/22/17 12:00 97.7 67 18 103/58 (73) 93 08/22/17 10:06 91 Nasal Cannula 21 I/O 08/22/17 08/22/17 08/22/17 08/23/17 08/23/17 08/23/17 07:00 15:00 23:00 07:00 15:00 23:00 Intake Total 730 ml 480 ml 240 ml Output Total 900 ml 200 ml Balance -170 ml 480 ml 40 ml Intake Oral 730 ml 480 ml 240 ml Output Urine Total 900 ml 200 ml # Voids 1 1 # Bowel Movements 1 1 Physical Exam VSS, afebrile. No JVD @ 90 deg. Lungs: rales right base. Heart: RRR, no murmur, gal, rubs. Ext: No C/C/E Neuro: Non-focal. Laboratory Laboratory Tests Test 08/23/17 04:20 Erythrocyte Sedimentation Rate 51 mm/hr Blood Urea Nitrogen 23 MG/DL Creatinine 1.29 MG/DL Random Glucose 94 MG/DL Calcium Level 8.3 MG/DL Sodium Level 142 MEQ/L Potassium Level 4.0 MEQ/L Chloride Level 104 MEQ/L Carbon Dioxide Level 27.1 MEQ/L Anion Gap 11 MEQ/L Estimat Glomerular Filtration Rate 55 ML/MIN B-Type Natriuretic Peptide 531 PG/ML Imaging Last 48 hours Impressions Chest X-Ray 08/21/17 1111 Signed Impressions: CONCLUSION: Cardiomegaly with probable mild interstitial edema. Suspect tiny pleural effusions. Echocardiogram: The left ventricular systolic function is normal with an estimated ejection fraction in the range of 55-60%. Mild mitral valve regurgitation. There is mild to moderate tricuspid valve regurgitation. Trivial pulmonary valve regurgitation. There is a bioprosthetic aortic valve replacement Moderate eccentric aortic valvular regurgitation against the septum Assessment and Plan Problem List: (1) Diastolic CHF ICD Codes: I50.30 - Unspecified diastolic (congestive) heart failure (2) Bronchitis ICD Codes: J40 - Bronchitis, not specified as acute or chronic Status: Acute (3) Atrial fibrillation ICD Codes: I48.91 - Unspecified atrial fibrillation (4) S/P AVR (aortic valve replacement) ICD Codes: Z95.2 - Presence of prosthetic heart valve (5) Aortic prosthetic valve regurgitation ICD Codes: T82.897A - Other specified complication of cardiac prosthetic devices, implants and grafts, initial encounter (6) S/P CABG x 3 ICD Codes: Z95.1 - Presence of aortocoronary bypass graft (7) Hypertension ICD Codes: I10 - Essential (primary) hypertension Status: Acute (8) Mitral regurgitation ICD Codes: I34.0 - Nonrheumatic mitral (valve) insufficiency (9) Tricuspid insufficiency ICD Codes: I07.1 - Rheumatic tricuspid insufficiency Assessment and Plan Improving. Continue to wean O2 off and increase activity as tolerates. Follow QTc on Amio and Levaquin. Increase furosemide 40 mg PO daily. Follow lytes and renal function. Await blood and sputum culture results. Following with you. Code Status FULL Discussed Condition With Patient and staff genetic counselor. Problem Qualifiers (1) Diastolic CHF: Qualified Codes: I50.33 - Acute on chronic diastolic (congestive) heart failure Brad Savage MD August 23, 2017 08:14
[2017-08-23] MEDS: AMIODARONE 200 MG TAB PO SCH ×2 (08:54→22:35)
[2017-08-23] MEDS: CHOLECALCIFEROL (VIT D3) 5000 UNIT CAP PO SCH (08:54)
[2017-08-23] MEDS: LEVOFLOXACIN 500 MG TAB PO SCH (08:54)
[2017-08-23] MEDS: ASPIRIN EC 81 MG TABEC PO SCH (08:54)
[2017-08-23] MEDS: PANTOPRAZOLE SOD 40 MG DELAYED RELEASE TAB PO SCH (08:54)
[2017-08-23] MEDS: SUCRALFATE 1 GM TAB PO SCH ×4 (08:54→21:00)
[2017-08-23] MEDS: MULTIVITAMIN TAB PO SCH (08:54)
[2017-08-23] MEDS: VITAMIN E 400 UNIT CAP PO SCH (08:54)
[2017-08-23] MEDS: POTASSIUM CHLORIDE 10 MEQ CONTROLLED RELEASE TAB PO SCH (08:55)
[2017-08-23] MEDS: FUROSEMIDE 40 MG TAB PO SCH (08:55)
[2017-08-23] MEDS: METOPROLOL TARTRATE 25 MG TAB PO SCH ×2 (08:55→22:34)
[2017-08-23] MEDS: APIXABAN 5 MG TABLET PO SCH ×2 (08:55→22:35)
[2017-08-23] MEDS: DOCUSATE SODIUM 50 MG/SENNA 8.6 MG TAB PO SCH ×2 (08:55→21:00)
[2017-08-23] MEDS: SODIUM CHLORIDE 0.9% FLUSH 10 ML FLUSH IV FLUSH SCH ×2 (08:57→22:36)
[2017-08-23] MEDS ORDERED: FUROSEMIDE 20 MG TAB PO SCH (09:00)
--- NOTE | 2017-08-23 11:16 | PD.CAR.PN ---
CVT Progress Note Subjective/Hospital Course: 08/23 feeling better now on room air still has dry cough, voice is a little hoarse on eliquis remains in NSR sputum and blood cultures pending, recently treated with antibiotics for Bronchitis stable for surgical standpoint will see prn Objective: GENERAL: A&O x 3 SKIN: Warm and dry. sternal incision intact and healing well / well approximated HEAD: Normocephalic. EYES: No scleral icterus. No injection or drainage. NECK: Supple, trachea midline. No JVD or lymphadenopathy. CARDIOVASCULAR: Regular rate and rhythm without murmurs, gallops, or rubs. RESPIRATORY: Breath sounds equal bilaterally. No accessory muscle use. GASTROINTESTINAL: Abdomen soft, non-tender, nondistended. MUSCULOSKELETAL: No cyanosis, or edema. BACK: Nontender without obvious deformity. No CVA tenderness. Vital Signs Date Time Temp Pulse Resp B/P (MAP) Pulse Ox O2 Delivery O2 Flow Rate FiO2 08/23/17 10:14 94 Nasal Cannula 08/23/17 10:00 76 08/23/17 09:00 76 08/23/17 08:00 82 08/23/17 07:53 97.6 73 19 130/70 (90) 94 08/23/17 07:53 94 Nasal Cannula 2.00 08/23/17 07:00 67 08/23/17 06:08 59 08/23/17 05:10 68 08/23/17 04:06 68 08/23/17 03:58 98.3 70 121/59 (79) 96 08/23/17 03:17 66 08/23/17 02:00 66 08/23/17 01:00 66 08/23/17 00:00 70 08/22/17 23:50 98.6 73 127/60 (82) 96 08/22/17 23:00 70 08/22/17 22:00 70 08/22/17 21:00 74 08/22/17 20:00 76 08/22/17 19:00 98.2 78 115/59 (77) 92 08/22/17 19:00 92 Room Air 08/22/17 19:00 60 08/22/17 18:00 75 08/22/17 17:00 78 08/22/17 16:00 73 08/22/17 15:00 94 Room Air 08/22/17 15:00 73 08/22/17 15:00 98.6 72 16 108/53 (71) 94 08/22/17 12:00 97.7 67 18 103/58 (73) 93 Labs: Laboratory Tests Test 08/23/17 04:20 Erythrocyte Sedimentation Rate 51 mm/hr (0-20) Blood Urea Nitrogen 23 MG/DL (7-18) Creatinine 1.29 MG/DL (0.60-1.30) Random Glucose 94 MG/DL (74-106) Calcium Level 8.3 MG/DL (8.5-10.1) Sodium Level 142 MEQ/L (136-145) Potassium Level 4.0 MEQ/L (3.5-5.1) Chloride Level 104 MEQ/L (98-107) Carbon Dioxide Level 27.1 MEQ/L (21.0-32.0) Anion Gap 11 MEQ/L (5-15) Estimat Glomerular Filtration Rate 55 ML/MIN (>89) B-Type Natriuretic Peptide 531 PG/ML (0-100) Result Diagram: 08/22/17 0045 08/23/17 0420 (1) Diastolic CHF Plan: on diuretics, now on room air (2) Bronchitis (3) Atrial fibrillation Plan: on eliquis/ s/p recent cardioversion (4) S/P AVR (aortic valve replacement) Plan: ECHO: mild to moderate tricuspid valve regurgitation. Trivial pulmonary valve regurgitation. There is a bioprosthetic aortic valve replacement Moderate eccentric aortic valvular regurgitation against the septum (5) Aortic prosthetic valve regurgitation (6) S/P CABG x 3 Plan: on praulent at home ASA, BB (7) Hypertension (8) Mitral regurgitation (9) Tricuspid insufficiency Problem Qualifiers (1) Diastolic CHF: Qualified Codes: I50.33 - Acute on chronic diastolic (congestive) heart failure Yue Amaral August 23, 2017 11:16
[2017-08-23] MEDS: SERTRALINE HCL 50 MG TAB PO SCH (22:34)
[2017-08-24] VITALS (16 sets, daily range): BP systolic 109–118; BP diastolic 55–60; PULSE 66–74; RESP 16–18; TEMP 97.6–98.7; O2SAT 90–95
[2017-08-24 05:14] LABS: BICARBONATE 26.1 MEQ/L (21.0-32.0); CALCIUM 8.5 MG/DL (8.5-10.1); CREATININE 1.26 MG/DL (0.60-1.30)
[2017-08-24] MEDS: LEVOFLOXACIN 500 MG TAB PO SCH (08:43)
[2017-08-24] MEDS: VITAMIN E 400 UNIT CAP PO SCH (08:43)
[2017-08-24] MEDS: MULTIVITAMIN TAB PO SCH (08:43)
[2017-08-24] MEDS: APIXABAN 5 MG TABLET PO SCH (08:43)
[2017-08-24] MEDS: SODIUM CHLORIDE 0.9% FLUSH 10 ML FLUSH IV FLUSH SCH (08:43)
[2017-08-24] MEDS: POTASSIUM CHLORIDE 10 MEQ CONTROLLED RELEASE TAB PO SCH (08:43)
[2017-08-24] MEDS: ASPIRIN EC 81 MG TABEC PO SCH (08:44)
[2017-08-24] MEDS: CHOLECALCIFEROL (VIT D3) 5000 UNIT CAP PO SCH (08:44)
[2017-08-24] MEDS: PANTOPRAZOLE SOD 40 MG DELAYED RELEASE TAB PO SCH (08:44)
[2017-08-24] MEDS: METOPROLOL TARTRATE 25 MG TAB PO SCH (08:44)
[2017-08-24] MEDS: FUROSEMIDE 40 MG TAB PO SCH (08:44)
[2017-08-24] MEDS: AMIODARONE 200 MG TAB PO SCH (08:44)
[2017-08-24] MEDS: SUCRALFATE 1 GM TAB PO SCH ×2 (08:45→12:13)
[2017-08-24] MEDS: DOCUSATE SODIUM 50 MG/SENNA 8.6 MG TAB PO SCH (08:47)
--- NOTE | 2017-08-24 15:18 | HHI.PR ---
Subjective Remarks On room air, walk for test past, patient comfortable, not short of breath, walk around the [place] without any oxygen. No chest pain. Objective Vitals Vital Signs Date Time Temp Pulse Resp B/P (MAP) Pulse Ox O2 Delivery O2 Flow Rate FiO2 08/24/17 15:00 69 08/24/17 14:00 69 08/24/17 13:00 73 08/24/17 12:00 66 08/24/17 11:00 97.7 69 17 117/56 (76) 95 08/24/17 11:00 70 08/24/17 10:00 70 08/24/17 09:00 73 08/24/17 08:00 74 08/24/17 07:00 69 08/24/17 07:00 95 Room Air 08/24/17 07:00 97.9 74 18 118/58 (78) 95 08/24/17 05:06 98.7 69 16 113/60 (77) 90 08/24/17 05:00 68 08/24/17 04:00 68 08/24/17 03:00 66 08/24/17 02:00 68 08/24/17 01:00 66 08/24/17 00:00 98.6 69 16 114/57 (76) 92 08/24/17 00:00 66 08/23/17 23:00 71 08/23/17 22:00 72 08/23/17 21:00 72 08/23/17 20:00 74 08/23/17 20:00 96 Room Air 08/23/17 20:00 98.6 74 16 138/66 (90) 96 08/23/17 19:38 95 08/23/17 19:00 73 08/23/17 16:00 68 I/O 08/23/17 08/23/17 08/23/17 08/24/17 08/24/17 08/24/17 07:00 15:00 23:00 07:00 15:00 23:00 Intake Total 240 ml 760 ml 480 ml Output Total 200 ml 800 ml 988 ml Balance 40 ml -40 ml -508 ml Intake Oral 240 ml 760 ml 480 ml Output Urine Total 200 ml 800 ml 988 ml # Bowel Movements 1 0 Result Diagram: 08/22/17 0045 08/24/17 0402 Objective Remarks GENERAL: This is a well-nourished, well-developed patient, in no apparent distress. CARDIOVASCULAR: Regular rate and regular rhythm without murmurs, gallops, or rubs. RESPIRATORY: No crackles or wheezing. Off oxygen. GASTROINTESTINAL: Abdomen soft, non-tender, nondistended. MUSCULOSKELETAL: Extremities without clubbing, cyanosis, or edema. NEURO: Alert & Oriented x4 to person, place, time, situation. Moves all ext x4 A/P Assessment and Plan Acute CHF exacerbation, unknown type The pt recently had a CABG x 3 as well as AVR. He presents with lower extremity edema, dyspnea with minimal exertion and a cough. BNP is elevated. CXR with congestion. EKG without acute ischemia. Responded well to Lasix, changed to Lasix 40 mg daily. Cardiology and cardiothoracic surgery on board. Patient seen by cardiothoracic surgery, patient cleared for discharge. Echocardiogram showed mild TR, bioprosthetic aortic valve replacement, cleared by cardiothoracic surgery for discharge. Continue Eliquis. Patient doing good today, if cardiology clears the patient, will discharge home. Continue aspirin and beta-blockers. Acute renal insufficiency-resolved with diuresis. A fib Recently cardioverted. In NSR. - continue Lopressor, amiodarone and Eliquis. - telemetry. Bronchitis Completed a one week course of cefuroxime on the day of admission. -continue levaquin, finished 1 week of treatment. Cultures negative. Anemia Likely post-surgical. PPx: Rober Viramontes MD August 24, 2017 15:18
[2017-08-24] MEDS ORDERED: KLOR10TA PO (15:48)
[2017-08-24] MEDS ORDERED: LEVA500T33 PO (15:48)
[2017-08-24] MEDS ORDERED: FURO40TA PO (15:48)
--- NOTE | 2017-08-24 15:48 | HHI.FF ---
Face to Face Verification Diagnosis: (1) S/P AVR (aortic valve replacement) (2) Diastolic CHF Physical Therapy Order: Evaluate and Treat Home Health Nursing Order: Medical education Signs/symptoms of disease process CHF education I have seen patient Guero Cox on 08/24/17. My clinical findings support the need for the requested home health care services because: Ltd mobility - disease progression Patient has SOB I certify that my clinical findings support that this patient is homebound because: Unsteady gait/balance Rober Rod MD August 24, 2017 15:48
--- NOTE | 2017-08-24 16:10 | PD.CARD.PN ---
Subjective Subjective Remarks Covering for Dr. Gaxiola Feeling better. Denies SOB, no CP. Ambulating in hallway. No cough. No edema. Objective Medications Current Medications Medications (Trade) Dose Ordered Sig/Balaji Route Start Time Stop Time Status Last Admin (Cordarone) 200 mg Q12HR PO 08/21/17 21:00 08/24/17 08:44 (Eliquis) 5 mg BID PO 08/21/17 21:00 08/24/17 08:43 (Ecotrin Ec) 81 mg DAILY PO 08/22/17 09:00 08/24/17 08:44 (Vitamin D3) 5,000 units DAILY PO 08/22/17 09:00 08/24/17 08:44 (Flonase Antony Spr) 1 spray BID PRN EACH NARE 08/21/17 15:00 (Lopressor) 25 mg BID PO 08/21/17 21:00 08/24/17 08:44 (Zoloft) 50 mg HS PO 08/21/17 21:00 08/23/17 22:34 (Carafate) 1 gm QID PO 08/21/17 18:00 08/24/17 12:13 (Protonix) 40 mg DAILY PO 08/22/17 09:00 08/24/17 08:44 (Theragran) 1 tab DAILY PO 08/22/17 09:00 08/24/17 08:43 (Vitamin E) 400 units DAILY PO 08/22/17 09:00 08/24/17 08:43 (NS Flush) 2 ml UNSCH PRN IV FLUSH 08/21/17 14:45 (NS Flush) 2 ml BID IV FLUSH 08/21/17 21:00 08/24/17 08:43 (Tylenol) 650 mg Q4H PRN PO 08/21/17 15:00 (Tylenol) 650 mg Q6H PRN PO 08/21/17 15:00 (Narcan Inj) 0.4 mg UNSCH PRN IV PUSH 08/21/17 14:45 (Kizzy-Colace) 1 tab BID PO 08/21/17 21:00 08/22/17 09:08 (Levaquin) 500 mg DAILY PO 08/23/17 09:00 08/24/17 08:43 (KCl) 10 meq DAILY PO 08/23/17 09:00 08/24/17 08:43 (Lasix) 40 mg DAILY PO 08/23/17 09:00 08/24/17 08:44 Vital Signs / I&O Vital Signs Date Time Temp Pulse Resp B/P (MAP) Pulse Ox O2 Delivery O2 Flow Rate FiO2 08/24/17 15:00 97.6 69 16 109/55 (73) 95 08/24/17 15:00 69 08/24/17 14:00 69 08/24/17 13:00 73 08/24/17 12:00 66 08/24/17 11:00 97.7 69 17 117/56 (76) 95 08/24/17 11:00 70 08/24/17 10:00 70 08/24/17 09:00 73 08/24/17 08:00 74 08/24/17 07:00 69 08/24/17 07:00 95 Room Air 08/24/17 07:00 97.9 74 18 118/58 (78) 95 08/24/17 05:06 98.7 69 16 113/60 (77) 90 08/24/17 05:00 68 08/24/17 04:00 68 08/24/17 03:00 66 08/24/17 02:00 68 08/24/17 01:00 66 08/24/17 00:00 98.6 69 16 114/57 (76) 92 08/24/17 00:00 66 08/23/17 23:00 71 08/23/17 22:00 72 08/23/17 21:00 72 08/23/17 20:00 74 08/23/17 20:00 96 Room Air 08/23/17 20:00 98.6 74 16 138/66 (90) 96 08/23/17 19:38 95 08/23/17 19:00 73 I/O 08/23/17 08/23/17 08/23/17 08/24/17 08/24/17 08/24/17 07:00 15:00 23:00 07:00 15:00 23:00 Intake Total 240 ml 760 ml 480 ml Output Total 200 ml 800 ml 988 ml Balance 40 ml -40 ml -508 ml Intake Oral 240 ml 760 ml 480 ml Output Urine Total 200 ml 800 ml 988 ml # Bowel Movements 1 0 Physical Exam VSS, afebrile. No JVD @ 90 deg. Lungs: CTA Heart: RRR, no murmur, gal, rubs. Ext: No C/C/E Neuro: Non-focal. Laboratory Laboratory Tests Test 08/24/17 04:02 Blood Urea Nitrogen 22 MG/DL Creatinine 1.26 MG/DL Random Glucose 91 MG/DL Calcium Level 8.5 MG/DL Sodium Level 140 MEQ/L Potassium Level 4.1 MEQ/L Chloride Level 106 MEQ/L Carbon Dioxide Level 26.1 MEQ/L Anion Gap 8 MEQ/L Estimat Glomerular Filtration Rate 56 ML/MIN Imaging EKG: NSR, QTc 433 Tele: NSR Assessment and Plan Problem List: (1) Diastolic CHF ICD Codes: I50.30 - Unspecified diastolic (congestive) heart failure Status: Resolved (2) Bronchitis ICD Codes: J40 - Bronchitis, not specified as acute or chronic Status: Acute (3) Atrial fibrillation ICD Codes: I48.91 - Unspecified atrial fibrillation (4) S/P AVR (aortic valve replacement) ICD Codes: Z95.2 - Presence of prosthetic heart valve (5) Aortic prosthetic valve regurgitation ICD Codes: T82.897A - Other specified complication of cardiac prosthetic devices, implants and grafts, initial encounter (6) S/P CABG x 3 ICD Codes: Z95.1 - Presence of aortocoronary bypass graft (7) Hypertension ICD Codes: I10 - Essential (primary) hypertension Status: Acute (8) Mitral regurgitation ICD Codes: I34.0 - Nonrheumatic mitral (valve) insufficiency (9) Tricuspid insufficiency ICD Codes: I07.1 - Rheumatic tricuspid insufficiency Assessment and Plan CV stable. QTc ok. Blood and sputum cultures negative so far. OK to discharge home from cardiac standpoint. Continue current cardiac meds at home. Follow up with Dr. Gaxiola in 1-2 weeks. Thank you.. Code Status Full Discussed Condition With Patient, spouse, medical staff manager. Problem Qualifiers (1) Diastolic CHF: Qualified Codes: I50.33 - Acute on chronic diastolic (congestive) heart failure Brad Savage MD August 24, 2017 16:10
--- NOTE | 2017-08-24 17:13 | HHI.DS ---
Discharge Summary Admission Date August 21, 2017 at 14:41 Discharge Date: August 24, 2017 Admitting Diagnosis acute exacerbation of CHF; s/p CABG x 3 s/p AVR (1) S/P AVR (aortic valve replacement) ICD Code: Z95.2 - Presence of prosthetic heart valve Diagnosis: Secondary (2) S/P CABG x 3 ICD Code: Z95.1 - Presence of aortocoronary bypass graft Diagnosis: Secondary (3) Diastolic CHF ICD Code: I50.30 - Unspecified diastolic (congestive) heart failure Diagnosis: Principal Status: Resolved Procedures None Brief History - From Admission The patient is a 71-year-old male with a past medical history of CAD and atrial fibrillation who is presenting to the hospital with shortness of breath. The patient says he had bypass surgery and valve surgery at the end of June. He said he went home and noticed that his heart rate has been elevated in the 1 teens and 120s. He contacted his youth support worker and had a [place] done with cardioversion. He was also started on metoprolol and amiodarone. He has been experiencing shortness of breath with minimal exertion. He has been having swelling in his lower extremities. He has noticed weight gain with the swelling in his lower extremities. He says he has sensitive bronchioles and he generally takes antibiotics when he feels short of breath and has a cough. He contacted his doctor who prescribed him a week of cefuroxime. He completed his antibiotics this morning. The patient has an oxygen monitor at home and noticed this morning that he went down to 89% with minimal exertion. He decided to come to the hospital for further evaluation. He says he feels a lot better after receiving the Lasix. He has been urinating a lot. He denies any prior history of heart failure. CBC/BMP: 08/22/17 0045 08/24/17 0402 Significant Findings Laboratory Tests Test 08/21/17 19:03 08/22/17 00:45 08/23/17 04:20 08/24/17 04:02 Iron Level 29 MCG/DL (65-175) Percent Iron Saturation 9.1 % (20-50) Troponin I LESS THAN 0.02 NG/ML LESS THAN 0.02 NG/ML Vitamin B12 Level 1530 PG/ML (193-986) Folate GREATER THAN 20.0 NG/ML Red Blood Count 3.95 MIL/MM3 (4.50-5.90) Hemoglobin 11.0 GM/DL (13.0-17.0) Hematocrit 33.6 % (39.0-51.0) Neutrophils (%) (Auto) 76.2 % (16.0-70.0) Monocytes (%) (Auto) 9.3 % (0.0-8.0) Eosinophils (%) (Auto) 4.1 % (0.0-4.0) Blood Urea Nitrogen 21 MG/DL (7-18) 23 MG/DL (7-18) 22 MG/DL (7-18) Creatinine 1.42 MG/DL (0.60-1.30) Albumin 2.6 GM/DL (3.4-5.0) Calcium Level 8.4 MG/DL (8.5-10.1) 8.3 MG/DL (8.5-10.1) Alkaline Phosphatase 232 U/L (45-117) Estimat Glomerular Filtration Rate 49 ML/MIN (>89) 55 ML/MIN (>89) 56 ML/MIN (>89) Erythrocyte Sedimentation Rate 51 mm/hr (0-20) B-Type Natriuretic Peptide 531 PG/ML (0-100) Imaging Last Impressions Chest X-Ray 08/21/17 1111 Signed Impressions: CONCLUSION: Cardiomegaly with probable mild interstitial edema. Suspect tiny pleural effusions. PE at Discharge GENERAL: This is a well-nourished, well-developed patient, in no apparent distress. CARDIOVASCULAR: Regular rate and regular rhythm without murmurs, gallops, or rubs. RESPIRATORY: No crackles or wheezing. Off oxygen. GASTROINTESTINAL: Abdomen soft, non-tender, nondistended. MUSCULOSKELETAL: Extremities without clubbing, cyanosis, or edema. NEURO: Alert & Oriented x4 to person, place, time, situation. Moves all ext x4 Hospital Course The patient is a 71-year-old male with a past medical history of CAD and atrial fibrillation who is presenting to the hospital with shortness of breath. Patient thought to have acute diastolic congestive heart failure. Patient had CABG as well as AVR. BNP is elevated. CXR with congestion. EKG without acute ischemia. Patient was started on diuresis with Lasix, now switched to oral, patient is stable off oxygen. Cardiology and cardiothoracic surgery were consulted. Patient seen by cardiothoracic surgery, patient cleared for discharge. Echocardiogram showed mild TR, bioprosthetic aortic valve replacement, cleared by cardiothoracic surgery for discharge. Continue Eliquis. Patient doing good today, if cardiology clears the patient, will discharge home. Continue aspirin and beta-blockers. Patient also had acute renal failure which resolved with diuresis. Patient remained in sinus rhythm and will continue Lopressor and amiodarone. He was also diagnosed with bronchitis and completed a week of cefuroxime. Patient was started on Levaquin and will be discharged to finish 1 week of treatment. Cultures remained negative. Pt Condition on Discharge: Good Discharge Disposition: Discharge Home Discharge Time: > 30 minutes Discharge Instructions DIET: Follow Instructions for: Heart Healthy Diet Activities you can perform: Regular-No Restrictions Follow up Referrals: Cardiology PCP Follow-up New Medications: Furosemide (Furosemide) 40 Mg Tab 40 MG PO DAILY for chf, #30 TAB Levofloxacin (Levaquin) 500 Mg Tablet 500 MG PO DAILY for pna, #5 TAB Potassium Chloride ER (Klor-Con 10) 10 Meq Tab 10 MEQ PO DAILY for supplement, #30 TAB Continued Medications: Albuterol 18 GM Inh (Ventolin Hfa 18 GM Inh) 90 Mcg/Act Aer 2 PUFF INH Q4H PRN for SHORTNESS OF BREATH, #1 INHALER 0 Refills Alirocumab Pen Inj Pack (Praluent Pen Inj Pack) 75 Mg/Ml Pfpen 75 MG SQ Q14D, #2 PACK Amiodarone (Amiodarone) 200 Mg Tab 200 MG PO Q12HR for heart rhythm, #28 TAB 0 Refills Apixaban (Eliquis) 5 Mg Tab 5 MG PO BID for Blood Clot Prevention, #60 TAB [address] (Aspirin DR) 81 Mg Tabdr 81 MG PO DAILY, TAB 0 Refills Cholecalciferol (D3 Maximum Strength) 5,000 Unit Cap 5000 UNITS PO DAILY for Nutritional Supplement, #30 CAP 0 Refills Coenzyme Q10 (Coenzyme Q10) 1 Pow Pow [address] (Nexium) 40 Mg Capdr 40 MG PO DAILY, CAP 0 Refills Fish Oil-Cholecalciferol ([place]-3 Fish Oil/Vitamin) 1,000-1,000 Mg Cap 2 CAP PO DAILY for Nutritional Supplement, CAP 0 Refills Fluticasone Nasal [place] (Fluticasone Nasal [place]) 50 Mcg/Act Naspr 50 MCG EACH NARE BID PRN for Allergy Management, #1 BOTTLE 0 Refills 50 mcg/spray Metoprolol Tartrate (Metoprolol Tartrate) 25 Mg Tab 25 MG PO BID, #60 TAB 0 Refills Multiple Vitamin (Multiple Vitamin) 1 Tab 1 TAB PO DAILY for Nutritional Supplement, TAB 0 Refills Sertraline (Zoloft) 50 Mg Tab 50 MG PO HS, #30 TAB 0 Refills Sucralfate (Sucralfate) 1 Gram Tab 1 GM PO QID for Duodenal ulcer, #120 TAB 0 Refills on empty stomach Vitamin E (Vitamin E) 200 Unit Cap 400 UNITS PO DAILY for Nutritional Supplement, CAP 0 Refills Rober Rod MD August 24, 2017 17:13
--- NOTE | 2017-08-25 08:40 | EKG ---
Date Performed: 08/23/2017 Time Performed: 19:03:04 PTAGE: 71 years EKG: Sinus rhythm . Baseline wander and artifact precludes accurate interpretation Abnormal ECG PREVIOUS TRACING : 08/21/2017 11.13 DOCTOR: Ludwig Wall Interpretating Date/Time 08/25/2017 08:38:56
== END 2017-08-24 17:00 | disposition home or self-care (01) | DRG 314 ==
LOC: NEPE 10:37 → NEDA 14:41 → N04A 17:36 → HCPC 08-22 14:20
PROVIDERS: ADMIT Hospitalist; ATTEND Family Medicine
DX: T82.897A Other specified complication of cardiac prosthetic devices, implants and grafts, initial encounter (principal); I50.33 Acute on chronic diastolic (congestive) heart failure; N17.9 Acute kidney failure, unspecified; I11.0 Hypertensive heart disease with heart failure; I48.0 Paroxysmal atrial fibrillation; I07.1 Rheumatic tricuspid insufficiency; K75.4 Autoimmune hepatitis; D64.9 Anemia, unspecified; E78.00 Pure hypercholesterolemia, unspecified; J40 Bronchitis, not specified as acute or chronic; I25.10 Atherosclerotic heart disease of native coronary artery without angina pectoris; F41.9 Anxiety disorder, unspecified; R01.1 Cardiac murmur, unspecified; E03.9 Hypothyroidism, unspecified; I34.0 Nonrheumatic mitral (valve) insufficiency; K21.9 Gastro-esophageal reflux disease without esophagitis; M19.90 Unspecified osteoarthritis, unspecified site; H91.90 Unspecified hearing loss, unspecified ear; I25.2 Old myocardial infarction; Z95.1 Presence of aortocoronary bypass graft; Z85.828 Personal history of other malignant neoplasm of skin; Z72.0 Tobacco use; Z86.73 Personal history of transient ischemic attack (TIA), and cerebral infarction without residual deficits; Z95.3 Presence of xenogenic heart valve; Z79.01 Long term (current) use of anticoagulants; Z87.442 Personal history of urinary calculi; Z82.49 Family history of ischemic heart disease and other diseases of the circulatory system
CPT/HCPCS: 71045; 80048; 80053; 81001; 82550; 82607; 82728; 82746; 83540; 83550; 83735; 83880; 84484; 85025; 85610; 85652; 85730; 87040; 87070; 87205; 93005; 93306; 94618; 99285; J1940